=== PATIENT | male | born 1940 | race Caucasian/White ===

== ENCOUNTER → 2018-10-24 | Outpatient (CLI) | payer MEDICARE ==
[2018-10-24 12:58] LABS: HCT 42.7 % (39.0-53.0); HGB 14.3 gm/dL (13.0-17.5); MCH 30.7 pg (25.0-35.0); MCHC 33.4 g/dL (31.0-37.0); MCV 91.9 fL (80.0-100.0); Mean Platelet Volume 8.7; Platelet Count 192 k/uL (150-450); RBC 4.64 m/uL (4.30-5.90); RDW 13.9 % (11.5-15.5); WBC 7.6 k/uL (3.8-10.6)
[2018-10-24 13:02] LABS: Potassium 4.5 mmol/L (3.5-5.1)
== END | disposition home or self-care (01) ==
LOC: LABPAT 11:21
PROVIDERS: ATTEND Internal Medicine Interventional Cardiology
DX: Z01.812 Encounter for preprocedural laboratory examination (principal); R94.39 Abnormal result of other cardiovascular function study; I34.0 Nonrheumatic mitral (valve) insufficiency
CPT/HCPCS: 36415; 80051; 82565; 82947; 84520; 85027

== ENCOUNTER 2018-11-02 10:49 | Day surgery (SDC) | payer MEDICARE ==
[2018-11-02] MEDS ORDERED: ASPIRIN 325 MG TAB ONE (11:01)
[2018-11-02] MEDS ORDERED: SODIUM CHLORIDE 0.9% 1,000 ML IV ONE (11:10)
[2018-11-02] MEDS ORDERED: VERAPAMIL 2.5 MG/ML 2 ML AMP ONE (12:10)
[2018-11-02] MEDS ORDERED: HEPARIN SODIUM 1,000 UN/ML (10ML VL) ONE (12:11)
[2018-11-02] MEDS ORDERED: LIDOCAINE 1% INJ 10MG/ML (20 ML MDV) ONE (12:11)
[2018-11-02] MEDS ORDERED: MIDAZOLAM (PF) 2 MG/2 ML VIAL IVP ONE (12:33)
[2018-11-02] MEDS ORDERED: LIDOCAINE 2% SYG (PF) 100 MG/5 ML MISCELLANE ONE ×3 (12:39→13:05)
[2018-11-02] MEDS: LIDOCAINE 1% INJ 10MG/ML (20 ML MDV) SQ ONE ×2 (12:41→12:52)
[2018-11-02] MEDS ORDERED: HEPARIN SODIUM 1,000 UN/ML (10ML VL) IV ONE (13:08)
[2018-11-02] MEDS ORDERED: IOPAMIDOL-370 125ML BTL INJ ONE (13:28)
[2018-11-02] MEDS ORDERED: IOPAMIDOL-370 50ML BTL INJ ONE (13:28)
[2018-11-02] MEDS ORDERED: RX INFO: IV CONTRAST WAS GIVEN 1 EACH MISC MISCELLANE PRN (13:42)
[2018-11-02] MEDS ORDERED: SODIUM CHLORIDE 0.9% 1,000 ML IV SCH (13:45)
[2018-11-02] MEDS ORDERED: hydrALAZINE HCL 20 MG/ML 1 ML VIAL ONE (14:00)
[2018-11-02 15:59] VITALS: RESP 16; BMI 21.4
[2018-11-02 19:48] VITALS: BP 137/73; PULSE 84; TEMP 98.2
--- NOTE | 2018-11-03 08:11 | CC ---
CARDIAC CATHETERIZATION REPORT DATE OF SERVICE: November 02, 2018 PERFORMING PHYSICIAN: Dagoberto Marie MD, director of sales and marketing. PROCEDURE PERFORMED: 1. Selective right and left coronary angiogram. 2. Left heart catheterization. 3. An aortogram with bilateral iliac angiogram. INDICATION: This is a 78-year-old gentleman with history of aortobifem as well as history of hypertension and dyslipidemia who was experiencing recent the symptoms of shortness of breath with exertion concerning for angina. He underwent myocardial perfusion imaging stress test and that revealed moderate-sized lateral ischemia. Because of that, a heart catheterization was advised. APPROACH: 1. Right common femoral artery. 2. Right radial artery. COMPLICATION: None. LEVEL OF SEDATION: Moderate with sedation length of about 30 minutes. PROCEDURE DESCRIPTION: After obtaining an informed consent, the patient was brought to the cardiac analytical laboratory technician. I attempted cannulating the right radial artery, but I was unable to because the pulse was fairly lateral. The patient is very thin as well. After that, I attempted cannulating the right common femoral artery where I did place a 6-Venezuelan sheath in the right common femoral artery, but I was unable to get the wire to the aorta because I was in his iliac artery which was occluded. The patient is known to have aortobifem surgery. Because of that, I decided to access the right brachial artery. The right radial artery was cannulated using micropuncture technique, the micropuncture wire passed easily, then I placed a 6-Venezuelan sheath in the right radial artery. After that, I did selective right and left coronary angiogram using JR3.5 and JL3.5 catheters. Left heart catheterization was performed using 5-Venezuelan pigtail catheter. After that and by the end, I did aortogram and bilateral iliac angiogram using 6-Venezuelan pigtail catheter. The procedure was completed without any complication. SELECTIVE CORONARY ANGIOGRAM: 1. The right coronary artery is a large caliber vessel and it is a dominant vessel. The RCA is extremely calcified. The mid RCA has a critical lesion appeared to be in the range of 99.9%. Distally appeared to be normal and bifurcates into PDA and PLV branches. 2. The left main is a large caliber vessel with distal disease appeared to be in the range of 60%. The left main bifurcates into left circumflex, ramus intermedius, and left anterior descending artery. 3. The left circumflex is a large caliber vessel and is a nondominant vessel. The left circumflex is occluded in the midportion. 4. The ramus intermedius is a large caliber vessel, which seems to be angiographically normal. 5. The left anterior descending artery is a large caliber vessel. The proximal LAD appeared to have mild disease only and gives rise into the first diagonal branch which is a large caliber vessel bifurcating into 2 subbranches. Appeared to be angiographically normal. The mid and distal LAD appears to be angiographically normal. AORTIC ANGIOGRAM AND BILATERAL ILIAC ANGIOGRAM: That was performed in the AP projection and under power injection. The aortobifem seems to be patent with nice flow from both limbs. CONCLUSION: 1. Calcified right and left coronary systems. 2. Critical disease involving the mid right coronary artery. 3. Severe disease involving the distal left main coronary artery. 4. Patent aortobifem bypass. POSTPROCEDURE MANAGEMENT: 1. Given the above anatomy and the left main involvement, I recommended proceeding with coronary artery bypass grafting. 2. The patient would like to be discharged home and scheduled for that as an outpatient. MMODL / IJN: [id number] /
--- NOTE | 2018-11-03 08:16 | LTR ---
DATE OF SERVICE: November 02, [address] Bermudez: Mr. Saurabh Murphy underwent today a heart catheterization and that revealed severe disease involving the left main coronary artery and critical disease involving the right coronary artery. Given the above anatomy and the left main involvement, I did recommend proceeding with coronary artery bypass grafting to revascularize. I want to thank you for allowing me to participate in his care and please do not hesitate to call with any questions or concerns. Sincerely, MMSAHRAL / IJN: [id number] /
== END 2018-11-02 22:30 | disposition home or self-care (01) ==
LOC: CATHCVL 10:49 → 1SOBS 13:32 → CATHCVL 22:30
PROVIDERS: ATTEND Internal Medicine Interventional Cardiology
DX: I25.110 Atherosclerotic heart disease of native coronary artery with unstable angina pectoris (principal); I25.84 Coronary atherosclerosis due to calcified coronary lesion; I10 Essential (primary) hypertension; I70.201 Unspecified atherosclerosis of native arteries of extremities, right leg; F17.200 Nicotine dependence, unspecified, uncomplicated; Z82.49 Family history of ischemic heart disease and other diseases of the circulatory system; E78.5 Hyperlipidemia, unspecified; I77.89 Other specified disorders of arteries and arterioles; Z79.82 Long term (current) use of aspirin; Z79.899 Other long term (current) drug therapy; Z98.890 Other specified postprocedural states
CPT/HCPCS: 93458; 85347; C1769 ×3; C1894 ×2; J0360; J2001 ×2; J1644; Q9967 ×2; J2250

== ENCOUNTER → 2018-12-14 | Outpatient (CLI) | payer MEDICARE ==
--- NOTE | 2018-12-14 12:04 | CT ---
EXAMINATION TYPE: CT chest wo con DATE OF EXAM: 12/14/2018 COMPARISON: 03/25/2011 HISTORY: Thoracic aortic aneurysm, without rupture CT DLP: 235.[address] of the chest was performed with lung and mediastinal window settings submitted. The la ck of contrast limits evaluation of the vascular, mediastinal and parenchymal structures including th e upper abdomen. LUNGS: The lungs are clear and free of infiltrate. No atelectasis. No pulmonary nodule or mass is de tected. No pleural effusion. No CT evidence of interstitial lung disease. MEDIASTINUM/HUNG: Ascending thoracic aortic aneurysm measuring 4.2 cm AP dimension versus 4.2 cm prev iously. Ascending thoracic aorta measures 3.3 cm AP dimension unchanged from prior study. At the aort ic hiatus the aorta measures 3.4 cm. The heart is not enlarged. No evidence for mediastinal mass. N o lymph nodes greater than 1cm. UPPER ABDOMEN: No significant abnormality is seen. OTHER: No significant other abnormality. IMPRESSION: 1. Stable thoracic aortic aneurysm.
== END | disposition home or self-care (01) ==
LOC: RADCTMAIN 11:26
PROVIDERS: ATTEND Surgery
DX: I71.2 Thoracic aortic aneurysm, without rupture (principal)
CPT/HCPCS: 71250

== ENCOUNTER 2018-12-17 06:11 | Day surgery (SDC) | payer MEDICARE ==
[2018-12-12 11:06] VITALS: BMI 21.9
[2018-12-17] MEDS ORDERED: METOPROLOL SUCCINATE (ER) 25 MG TAB.ER.24H PO STA (06:59)
[2018-12-17] MEDS ORDERED: amLODIPine 5 MG TAB PO STA (06:59)
[2018-12-17] MEDS ORDERED: SODIUM CHLORIDE 0.9% 500 ML 500 ML IV ONE (07:00)
[2018-12-17 07:15] VITALS: TEMP 97.6
[2018-12-17] MEDS ORDERED: fentaNYL (PF) 50 MCG/ML 2 ML AMP ONE (07:37)
[2018-12-17] MEDS ORDERED: BENZOCAINE SPRAY 1 CAN MUCOUS MEM ONE (07:59)
[2018-12-17] MEDS: MIDAZOLAM (PF) 2 MG/2 ML VIAL IV ONE ×2 (08:00→08:05)
[2018-12-17] MEDS ORDERED: fentaNYL (PF) 50 MCG/ML 2 ML AMP IV ONE (08:02)
--- NOTE | 2018-12-17 08:39 | ECHOT ---
TRANSESOPHAGEAL ECHOCARDIOGRAM DATE OF SERVICE: 12/17/2018 PERFORMING PHYSICIAN: Dagoberto Marie MD, Job Checker. PROCEDURE PERFORMED: Transesophageal echocardiogram. INDICATION: Evaluating the severity of mitral regurgitation before the patient is going to undergo coronary artery bypass grafting. COMPLICATION: None. LEVEL OF SEDATION: Moderate with sedation length of 10 minutes. PROCEDURE DESCRIPTION: After obtaining an informed consent, explaining the procedure, benefits, risks, complications and alternatives, the patient was brought to the transesophageal echocardiogram suite. A pulse oximetry and heart rate monitors were attached to the patient prior to the procedure. The patient's throat was sprayed using lidocaine locally. Following that, the patient was turned into left lateral position. A bite guard was placed and the patient was then sedated with the above doses of Versed and fentanyl in divided doses. Following that, the transesophageal echocardiogram probe was advanced through the bite guard into the mid esophagus where 2-D echocardiogram images as well as color Doppler images of various cardiac structures were obtained. We evaluated the interatrial septum using 2-D echocardiogram, color Doppler, and contrast study. The procedure was completed. There were no complications. FINDINGS: The left ventricular dimension and systolic function appeared to be within normal limits. The right ventricular dimension and systolic function appeared to be within normal limits. The left atrium is mildly dilated. The left atrial appendage appeared to be free from any thrombus. The interatrial septum appeared to be intact. The aortic valve is trileaflet valve without stenosis or regurgitation. The mitral valve seems to be thickened with thickening in the anterior as well as posterior mitral leaflet with evidence of moderate mitral regurgitation with central jet. The tricuspid valve and pulmonic valve appear to be within normal limits. The aorta appeared to be free from any atherosclerosis. CONCLUSION: 1. Normal left ventricular dimension and systolic function. 2. Normal right ventricular dimension and systolic function. 3. Mildly dilated right and left atrium. 4. Normal left atrial appendage. 5. Intact interatrial septum. 6. Trileaflet aortic valve without stenosis or regurgitation. 7. Thickened mitral valve leaflets with moderate mitral regurgitation. 8. Normal tricuspid valve and pulmonic valve. 9. Normal descending thoracic aorta without any evidence of atherosclerosis and please refer size thickened anterior and posterior mitral leaflet with moderate MR only. MMODL / IJN: [id number] /
[2018-12-17 15:01] VITALS: RESP 18
[2018-12-17 15:04] VITALS: BP 142/81; PULSE 51
== END 2018-12-17 09:32 | disposition home or self-care (01) ==
LOC: CATHCVL 06:11
PROVIDERS: ATTEND Internal Medicine Interventional Cardiology
DX: I34.0 Nonrheumatic mitral (valve) insufficiency (principal); I25.10 Atherosclerotic heart disease of native coronary artery without angina pectoris; I10 Essential (primary) hypertension; E78.5 Hyperlipidemia, unspecified; F17.210 Nicotine dependence, cigarettes, uncomplicated; Z79.82 Long term (current) use of aspirin; Z79.899 Other long term (current) drug therapy
CPT/HCPCS: 93312; 93320; 93325; J3010; J2250

== ENCOUNTER → 2019-01-08 | Outpatient (CLI) | payer MEDICARE ==
--- NOTE | 2019-01-09 09:57 | P.VSCSTY ---
Greater Saphenous Vein Mapping This is bilateral lower extremity greater saphenous vein mapping. Date of service: 01/08/2019 Vein quality and ultrasound appearance: Varicose areas at the right knee, at the left knee and mid calf on the left. Vein size groin right : 5.1 x 4.2 groin left: 10 x 11 High thigh right: 4.4 x 4.4 high thigh left: 6.6 x 6.6 Mid thigh right: 5.7 x 5.4 mid thigh left: 6.0 x 5.7 Above-knee right: Dilated, 8.1 x 7.7 above-knee left: Dilated, 90.4 x 8.3 Below knee right: 6.1 x 4.9 below-knee left: Dilated 9.0 x 8.1 Mid calf right: 5.8 x 4.1 mid calf left: 5.2 x 4.2 with a dilated branch to 8.8 x 5.8 Ankle right: 8.7 x 6.8 ankle left: 7.7 x 5.7 Impression: Both thighs and the upper right lower leg appear to be the most promising spots for use as conduit. Multiple areas of varicosities which could be problematic. Clinical correlation recommended..
--- NOTE | 2019-01-09 10:06 | P.ARTDOP ---
Arterial Doppler Bilateral radial artery testing: Reason for study: Preop CABG Date of study: 01/08/2019 Findings: Doppler assessment shows no significant right to left or segmental pressure gradient Digital plethysmography with radial artery compression shows no significant pressure changes. Imaging of the right is between 3.1 x 2.8 and 3.8 x 3.3. Left 3.2 x 3.0-3. 2 x 2.9. Please note* The radial artery branches off of the axillary rather than the brachial, as does the ulnar. Therefore measurements are from the axillary level down to the wrist level. Both radial arteries are probably usable. However, please note the branching radial to ulnar which occurs at the axillary level.
== END | disposition home or self-care (01) ==
LOC: CPPFTMAIN 07:58
PROVIDERS: ATTEND Surgery
DX: Z01.818 Encounter for other preprocedural examination (principal); R94.2 Abnormal results of pulmonary function studies
CPT/HCPCS: 93923; 93930; 93970; 94060; 94726; 94729

== ENCOUNTER → 2019-01-17 | Outpatient (CLI) | payer MEDICARE ==
[2019-01-17 10:36] LABS: HCT 42.8 % (39.0-53.0); MCHC 35.1 g/dL (31.0-37.0); MCV 94.2 fL (80.0-100.0); Mean Platelet Volume 8.4; Platelet Count 173 k/uL (150-450); RBC 4.55 m/uL (4.30-5.90); RDW 13.6 % (11.5-15.5)
--- NOTE | 2019-01-17 10:42 | XR ---
EXAMINATION TYPE: XR chest 2V DATE OF EXAM: 01/17/2019 COMPARISON: 03/31/2015 TECHNIQUE: PA and lateral views submitted. HISTORY: Presurgical testing FINDINGS: The lungs are clear and there is no pneumothorax, pleural effusion, or focal pneumonia. Linear mclaughlin ge right upper lobe suggestive of atelectasis or scar. Arthropathy of the shoulders. There appears to be aneurysmal dilation of the thoracic aorta which has been reported by previous CT scan. Hyperinfla tion suggests COPD. Surgical clips in the mediastinum noted. Hypertrophic and degenerative change of the spine. Correlate for pulmonary arterial hypertension. IMPRESSION: 1. No acute process. COPD. Correlate for pulmonary arterial hypertension.
[2019-01-17 10:45] LABS: INR 0.9 (<1.2); Prothrombin Time 9.9 sec (9.0-12.0)
[2019-01-17 11:09] LABS: ALT 26 U/L (21-72); AST 20 U/L (17-59); African American GFR (CKD) 78 (>60 ml/min/1.73 sqM); Albumin 4.1 g/dL (3.5-5.0); Alkaline Phosphatase 86 U/L (38-126); Anion Gap 8 mmol/L; Blood Urea Nitrogen 19 mg/dL (9-20); Calcium 9.4 mg/dL (8.4-10.2); Carbon Dioxide 30 mmol/L (22-30); Chloride 104 mmol/L (98-107); Cholesterol 124 mg/dL (<200); Glucose 95 mg/dL (74-99); HDL Cholesterol 36 mg/dL (40-60); LDL Cholesterol,Calculated 74 mg/dL (0-99); Potassium 4.3 mmol/L (3.5-5.1); Sodium 142 mmol/L (137-145); Total Protein 6.8 g/dL (6.3-8.2); Triglycerides 68 mg/dL (<150)
[2019-01-17 12:53] LABS: T4, Free (Free Thyroxine) 1.92 ng/dL (0.78-2.19)
[2019-01-17 14:13] LABS: Appearance,Urine Turbid (Clear); Bacteria,Urine Many /hpf; Bilirubin,Urine Negative (Negative); Blood,Urine Negative (Negative); Calcium Oxalate Crystals,Urine Moderate /hpf; Color,Urine Dark Brown; Glucose,Urine (UA) Negative (Negative); Ketones,Urine Negative (Negative); Leukocyte Esterase,Urine Moderate (Negative); Mucus,Urine Many /hpf; Nitrite,Urine Positive (Negative); PH, Urine 5.5 (5.0-8.0); Protein,Urine 1+ (Negative); RBC,Urine 16 /hpf (0-5); WBC,Urine 33 /hpf (0-5)
[2019-01-17 20:35] LABS: Hemoglobin A1C 5.2 % (4.0-6.0)
== END | disposition home or self-care (01) ==
LOC: LABPAT 07:46
PROVIDERS: ATTEND Surgery
DX: Z01.810 Encounter for preprocedural cardiovascular examination (principal); Z01.818 Encounter for other preprocedural examination; Z01.812 Encounter for preprocedural laboratory examination; R03.0 Elevated blood-pressure reading, without diagnosis of hypertension; I25.10 Atherosclerotic heart disease of native coronary artery without angina pectoris; N18.9 Chronic kidney disease, unspecified; I34.2 Nonrheumatic mitral (valve) stenosis; Z95.2 Presence of prosthetic heart valve; Z79.899 Other long term (current) drug therapy; Z79.01 Long term (current) use of anticoagulants
CPT/HCPCS: 36415; 71046; 80053; 80061; 80074; 81001; 83036; 83735; 84439; 84443; 85027; 85610; 85730; 86850; 86900; 86901; 86920; 87070; 87077; 87086; 87186; 93005

== ENCOUNTER 2019-01-25 05:40 | Inpatient (IN) | payer MEDICARE ==
[2019-01-18 16:20] VITALS: BMI 21.7
--- NOTE | 2019-01-22 07:46 | P.PN ---
Progress Note - Text Progress Note Date: 01/17/19 5 meter walk test was completed 01/17/19: #1 5.34 sec #2 4.72 sec #3 4.43 sec Also, STS risk score was calculated and discussed with the patient and daughter. Urine culture positive for ecoli, no fever, no symptoms, WBC count normal. Patient given course of oral Bactrim.
[~2019-01-25 05:40] MED LIST: ALBUMIN HUMAN 25% 50 ML IV ONE; ALBUMIN HUMAN 5% 500 ML IVPB ONE; ASPIRIN 325 MG TAB PO ONE; ATORVASTATIN 10 MG TAB PO ONE; CALCIUM CHLORIDE 100 MG/ML 10 ML SYRINGE IV ONE; CHLORHEXIDINE GLUCONATE 15 ML CUP MUCOUS MEM ONE; CLEVIDIPINE BUTYRATE 25 MG in EMPTY BAG 1 BAG IV ONE; DEXTROSE 5% IN WATER 1,000 ML with POTASSIUM CHLORIDE 110 MEQ, MAGNESIUM SULFATE 16 MEQ... IV ONE; DEXTROSE 5% IN WATER 1,000 ML with POTASSIUM CHLORIDE 25 MEQ, SODIUM CHLORIDE 2.5MEQ/ML... IRRIGATION ONE; DILTIAZEM 125 MG in SODIUM CHLORIDE 0.9% 100 ML IV ONE; HEPARIN SODIUM 1,000 UN/ML (10ML VL) IV ONE; HEPARIN SODIUM,PORCINE 5,000 UNIT in SODIUM CHLORIDE 0.9% 500 ML 500 ML IV ONE; INSULIN REGULAR 100 UNIT in SODIUM CHLORIDE 0.9% 100 ML IV ONE; LACTATED RINGERS 1,000 ML IV ONE; MAGNESIUM SULFATE MG 500 MG/ML IV ONE; MANNITOL 25% 12.5 GM/50 ML VIAL IV ONE; METOPROLOL TARTRATE 12.5 MG TAB PO ONE; NITROGLYCERIN SL TABS 0.4 MG TAB SUBLINGUAL ONE; NITROGLYCERIN-D5W PMX 25 MG/250 ML BTL IV ONE; NITROGLYCERIN-D5W PMX 50 MG in DEXTROSE/WATER 1 250ML.BAG IV ONE; NOREPINEPHRINE 4 MG in SODIUM CHLORIDE 0.9% 250 ML IV ONE; PAPAVERINE 360 MG in SODIUM CHLORIDE 0.9% 90 ML IV ONE; PHENYLEPHRINE 10 MG/ML VIAL IV ONE; PHENYLEPHRINE 40 MG in SODIUM CHLORIDE 0.9% 250 ML IV ONE; PROPOFOL 1,000 MG/100 ML VIAL IV ONE; PROTAMINE SULFATE 10 MG/ML 25 ML VIAL IV ONE; PROTAMINE SULFATE 250 MG in EMPTY BAG 1 BAG IV ONE; SODIUM BICARB 8.4% 50 ML SYR (1 MEQ/ML) IV ONE; SODIUM CHLORIDE 0.9% 1,000 ML IV ONE; TRANEXAMIC ACID 2,000 MG in SODIUM CHLORIDE 0.9% 80 ML IV ONE; VANCOMYCIN 1,000 MG VIAL MISCELLANE ONE; ceFAZolin 2,000 MG in SODIUM CHLORIDE 0.9% 30 ML IVPB ONE
[2019-01-25] MEDS ORDERED: LACTATED RINGERS 1,000 ML IV SCH (05:48)
[2019-01-25] MEDS ORDERED: MIDAZOLAM 2 MG/2 ML VIAL IV PRN (05:48)
[2019-01-25] MEDS ORDERED: LIDOCAINE 1% 20 ML VIAL (10MG/ML) FOR IV START INTRADERMA PRN (05:48)
[2019-01-25] MEDS ORDERED: fentaNYL (PF) 50 MCG/ML 50 ML VIAL ONE (07:39)
[2019-01-25] MEDS ORDERED: ELECTROLYTE-R (PH 7.4) 1,000 ML IV.SOLN IV ONE (07:39)
[2019-01-25] MEDS ORDERED: ePHEDrine SULFATE/0.9% NACL/PF 50 MG/5 ML SYRINGE IV ONE (07:39)
[2019-01-25] MEDS ORDERED: SODIUM CHLORIDE 0.9% IRRIG 1,000 ML BTL IRRIGATION ONE (07:39)
[2019-01-25] MEDS ORDERED: PROTAMINE SULFATE 10 MG/ML 25 ML VIAL IV ONE (07:39)
[2019-01-25] MEDS ORDERED: VECURONIUM 10 MG VIAL IV ONE (07:39)
[2019-01-25] MEDS ORDERED: ceFAZolin 1,000 MG VIAL ONE (07:39)
[2019-01-25] MEDS ORDERED: LIDOCAINE 2% SYG (PF) 100 MG/5 ML ONE (07:39)
[2019-01-25] MEDS ORDERED: MAGNESIUM SULFATE 4 MEQ/ML 10ML VIAL ONE (07:39)
[2019-01-25] MEDS ORDERED: SODIUM CHLORIDE 0.9% 250 ML BAG ONE (07:39)
[2019-01-25] MEDS ORDERED: CALCIUM CHLORIDE 100 MG/ML 10 ML SYRINGE ONE (07:39)
[2019-01-25] MEDS ORDERED: TRANEXAMIC ACID 1,000 MG/10 ML VIAL ONE (07:39)
[2019-01-25] MEDS ORDERED: INSULIN REGULAR 100 UNIT/ML VIAL ONE (07:39)
[2019-01-25] MEDS ORDERED: MIDAZOLAM 2 MG/2 ML VIAL ONE (07:39)
[2019-01-25] MEDS ORDERED: HEPARIN SODIUM,PORCINE 10,000 UNIT/ML 1 ML VIAL ONE (07:39)
[2019-01-25] MEDS ORDERED: fentaNYL (PF) 50 MCG/ML 2 ML AMP ONE (07:39)
[2019-01-25] MEDS ORDERED: PROPOFOL 10 MG/ML 20 ML VIAL IV ONE (07:39)
[2019-01-25 08:38] LABS: ABG Base Excess -0.5 mmol/L; ABG Glucose Whole Blood 119 mg/dL (75-99); ABG HCO3 24 mmol/L (21-25); ABG Hematocrit 41 % (34.0-46.0); ABG Ionized Calcium 4.7 mg/dL (4.5-5.3); ABG Lactic Acid Whole Blood 0.7 mmol/L (0.5-1.6); ABG PCO2 40 mmHg (35-45); ABG Potassium Whole Blood 3.9 mmol/L (3.4-4.5); ABG Sodium Whole Blood 137 mmol/L (135-146); ABG TCO2 26 mmol/L (19-24)
[2019-01-25 10:03] LABS: ABG Base Excess -4.7 mmol/L; ABG Glucose Whole Blood 137 mg/dL (75-99); ABG HCO3 25 mmol/L (21-25); ABG Hematocrit 37 % (34.0-46.0); ABG Ionized Calcium 4.9 mg/dL (4.5-5.3); ABG Lactic Acid Whole Blood 0.6 mmol/L (0.5-1.6); ABG Oxygen Saturation 99.6 % (94-97); ABG PCO2 67 mmHg (35-45); ABG PO2 257 mmHg (83-108); ABG Sodium Whole Blood 138 mmol/L (135-146); ABG TCO2 27 mmol/L (19-24)
[2019-01-25 10:50] LABS: ABG Base Excess -3.6 mmol/L; ABG Glucose Whole Blood 151 mg/dL (75-99); ABG HCO3 23 mmol/L (21-25); ABG Hematocrit 37 % (34.0-46.0); ABG Ionized Calcium 4.7 mg/dL (4.5-5.3); ABG Lactic Acid Whole Blood 0.7 mmol/L (0.5-1.6); ABG Oxygen Saturation 99.7 % (94-97); ABG PCO2 47 mmHg (35-45); ABG PO2 208 mmHg (83-108); ABG Potassium Whole Blood 4.1 mmol/L (3.4-4.5); ABG Sodium Whole Blood 137 mmol/L (135-146); ABG TCO2 24 mmol/L (19-24)
[2019-01-25] MEDS: ceFAZolin 1,000 MG in SODIUM CHLORIDE 0.9% IRRIGATIO 1,000 ML IRRIGATION ONE ×2 (11:11→18:27)
[2019-01-25 11:14] LABS: ABG Base Excess -5.3 mmol/L; ABG Glucose Whole Blood 142 mg/dL (75-99); ABG HCO3 21 mmol/L (21-25); ABG Hematocrit 26 % (34.0-46.0); ABG Lactic Acid Whole Blood 1.3 mmol/L (0.5-1.6); ABG PCO2 42 mmHg (35-45); ABG PO2 403 mmHg (83-108); ABG Potassium Whole Blood 4.2 mmol/L (3.4-4.5); ABG Sodium Whole Blood 132 mmol/L (135-146); ABG TCO2 22 mmol/L (19-24)
[2019-01-25 11:44] LABS: ABG Base Excess -0.6 mmol/L; ABG Glucose Whole Blood 258 mg/dL (75-99); ABG HCO3 25 mmol/L (21-25); ABG Hematocrit 25 % (34.0-46.0); ABG Lactic Acid Whole Blood 1.1 mmol/L (0.5-1.6); ABG PCO2 43 mmHg (35-45); ABG PH 7.37 (7.35-7.45); ABG PO2 333 mmHg (83-108); ABG Potassium Whole Blood 5.6 mmol/L (3.4-4.5); ABG Sodium Whole Blood 132 mmol/L (135-146); ABG TCO2 26 mmol/L (19-24)
[2019-01-25 12:17] LABS: ABG Base Excess -0.9 mmol/L; ABG Glucose Whole Blood 250 mg/dL (75-99); ABG HCO3 24 mmol/L (21-25); ABG Hematocrit 26 % (34.0-46.0); ABG Ionized Calcium 4.1 mg/dL (4.5-5.3); ABG Lactic Acid Whole Blood 1.2 mmol/L (0.5-1.6); ABG PCO2 43 mmHg (35-45); ABG PH 7.37 (7.35-7.45); ABG PO2 280 mmHg (83-108); ABG Potassium Whole Blood 5.3 mmol/L (3.4-4.5); ABG Sodium Whole Blood 133 mmol/L (135-146); ABG TCO2 26 mmol/L (19-24)
[2019-01-25] MEDS ORDERED: DEXTROSE 5% IN WATER 1,000 ML with POTASSIUM CHLORIDE 110 MEQ, MAGNESIUM SULFATE 16 MEQ... IV ONE ×5 (14:00)
[2019-01-25] MEDS ORDERED: ONDANSETRON 4 MG/2 ML VIAL IVP PRN (15:03)
[2019-01-25] MEDS ORDERED: Phosphorus Replacement Protoco 1 EACH MISC MISCELLANE PRN (15:03)
[2019-01-25] MEDS ORDERED: BENZOCAINE/MENTHOL LOZENG 1 EACH LOZENGE MUCOUS MEM PRN (15:03)
[2019-01-25] MEDS ORDERED: Potassium Replacement Protocol 1 EACH MISC MISCELLANE PRN (15:03)
[2019-01-25] MEDS ORDERED: AMIODARONE 360 MG in DEXTROSE 5% IN WATER 200 ML IV PRN ×2 (15:03)
[2019-01-25] MEDS ORDERED: CALCIUM GLUCONATE 2 GM in SODIUM CHLORIDE 0.9% 100 ML IVPB PRN (15:03)
[2019-01-25] MEDS ORDERED: Magnesium Replacement Protocol 1 EACH MISC MISCELLANE PRN (15:03)
[2019-01-25] MEDS ORDERED: IPRATROPIUM-ALBUTEROL 3 ML NEB INHALATION SCH (16:00)
[2019-01-25 16:52] LABS: ABG PO2 >420 mmHg (83-108)
[2019-01-25 16:53] LABS: ABG PH 7.18 (7.35-7.45)
[2019-01-25] MEDS ORDERED: DEXMEDETOMIDINE/0.9% NACL(PMX) 400 MCG in EMPTY BAG 1 BAG IV SCH (17:30)
[2019-01-25] MEDS ORDERED: NITROGLYCERIN-D5W PMX 50 MG in DEXTROSE/WATER 1 250ML.BAG IV SCH (17:30)
[2019-01-25] MEDS ORDERED: DILTIAZEM 125 MG in SODIUM CHLORIDE 0.9% 100 ML IV SCH (17:30)
[2019-01-25 17:33] LABS: Ionized Calcium 4.8 mg/dL (4.5-5.3)
[2019-01-25 17:34] LABS: ABG Base Excess 0.4 mmol/L; ABG HCO3 26 mmol/L (21-25); ABG Oxygen Saturation 99.8 % (94-97); ABG PCO2 49 mmHg (35-45); ABG PH 7.34 (7.35-7.45); ABG PO2 >400 mmHg (83-108); ABG TCO2 28 mmol/L (19-24); Allen Test Performed? Yes
[2019-01-25 17:40] LABS: Basophils % (A) 1 %; Eosinophils # (A) 0.1 k/uL (0-0.7); Eosinophils % (A) 2 %; HCT 23.6 % (39.0-53.0); Lymphocytes # (A) 0.3 k/uL (1.0-4.8); Lymphocytes % (A) 5 %; MCH 32.4 pg (25.0-35.0); MCHC 35.2 g/dL (31.0-37.0); Mean Platelet Volume 9.6; Monocytes # (A) 0.6 k/uL (0-1.0); Monocytes % (A) 10 %; Neutrophils # (A) 4.7 k/uL (1.3-7.7); Neutrophils % (A) 81 %; RBC 2.56 m/uL (4.30-5.90); RDW 14.6 % (11.5-15.5); WBC 5.8 k/uL (3.8-10.6)
[2019-01-25 17:41] LABS: HGB 8.3 gm/dL (13.0-17.5)
[2019-01-25 17:42] LABS: Platelet Count 46 k/uL (150-450)
--- NOTE | 2019-01-25 17:43 | XR ---
EXAMINATION TYPE: XR chest 1V portable DATE OF EXAM: 01/25/2019 COMPARISON: 01/17/2019 HISTORY: Cardiac surgery TECHNIQUE: Single frontal view of the chest is obtained. FINDINGS: Endotracheal tube is 3.5 cm from the yannick. There is a drain over the heart. There is yari ogastric tube. There is right jugular catheter with the tip in the right pulmonary artery. No pneumot horax. No heart failure. There is a left-sided chest tube. There is minimal infiltrate and atelectasi s in lower lung de dios. IMPRESSION: Postsurgical changes. Minimal infiltrates and atelectasis in the lower lung de dios is ne w compared to preoperative exam. No heart failure. No pulmonary consolidation.
[2019-01-25 17:49] LABS: Glucose,Whole Blood 116 mg/dL (75-99)
[2019-01-25 17:51] LABS: INR 1.5 (<1.2); Partial Thromboplastin Time 44.7 sec (22.0-30.0); Prothrombin Time 15.4 sec (9.0-12.0)
[2019-01-25 17:53] LABS: Albumin 2.6 g/dL (3.5-5.0); Calcium 7.9 mg/dL (8.4-10.2); Magnesium 2.5 mg/dL (1.6-2.3); Potassium 4.2 mmol/L (3.5-5.1); Total Bilirubin 1.6 mg/dL (0.2-1.3); Total Protein 3.8 g/dL (6.3-8.2)
[2019-01-25 18:23] LABS: Glucose,Whole Blood 106 mg/dL (75-99)
[2019-01-25] MEDS: LACTATED RINGERS 1,000 ML IV SCH (18:29)
[2019-01-25] MEDS ORDERED: DESMOPRESSIN ACETATE 21 MCG in SODIUM CHLORIDE 0.9% 50 ML IVPB ONE (18:30)
[2019-01-25 18:49] LABS: Anisocytosis (M) Present; Hypochromasia (M) Present; Poikilocytosis (M) Present
[2019-01-25 18:50] LABS: Crenated RBC Present
--- NOTE | 2019-01-25 19:15 | P.CNPUL ---
History of Present Illness Consult date: 01/25/19 Requesting physician: Deep Franco Reason for consult: other Chief complaint: CAD, status post three-vessel bypass surgery History of present illness: This is a 78-year-old white male patient with past medical history significant for hypertension, hypercholesterolemia, history of sleep apnea, abdominal aortic aneurysm with surgical repair in 2017, history of right-sided lung cancer status post resection in 2017 followed by chemotherapy and radiation therapy, past history of tobacco use currently in remission, moderate alcohol use, was diagnosed with multivessel coronary artery disease and moderate mitral regurgitation and was referred to cardiothoracic surgery for intervention. He had a heart catheterization on 11/02/2018 which revealed a 60% lesion in the left main artery, occlusion in the midportion of the left circumflex artery, mild disease in the LAD, there was a 99% critical lesion in the mid right coronary artery. Echocardiogram revealed ejection fraction of 55%, there was moderate mitral regurg with mild mitral annular calcification. On 01/25/2019 patient had three-vessel bypass with VINCENT to LAD, radial artery graft to the RCA, and saphenous graft to the OM, Intra-operatively patient apparently had a perforated pulmonary artery and the coronary sinus requiring repair, overall patient did well, he received Cell Saver, no blood products Intra-Op, did receive 4 to have liters of crystalloids, 1.5 L of albumin. We seen the patient in the ICU in the immediate postoperative period, he is intubated on mechanical ventilator on IMV mode with a rate of 10, tidal volume of 550, FiO2 100% and PEEP of 5, as was switched over to assist control mode of ventilation with a rate of 12, same tidal volume, same FiO2, and PEEP was up to 10. Postop blood gases are pending. Patient had put out 700 mL of sanguinous output from the mediastinal chest tube, left pleural chest tube is relatively dry. He is receiving 5 units of platelets, 2 units of FFP, 2 of albumin, he was given a dose of DDAVP, and 10 units of cryoprecipitate. Postop blood work showed a white blood cell count of 5.8, hemoglobin is 8.3, INR is 1.5, sodium is 139, potassium is 4.2, chloride is 108, CO2 is 26, BUN is 23, creatinine 0.9. Maintenance IV fluids of lactated Ringer's at a rate of 50, no pressors. No sedation, PA pressures 27/14, with a CVP of 4, cardiac output and cardiac index of 4.1 and 2.1 respectively. Review of Systems All systems: negative Constitutional: Denies chills, Denies fever Eyes: denies blurred vision, denies pain Ears, nose, mouth and throat: Denies headache, Denies sore throat Cardiovascular: Denies chest pain, Denies shortness of breath Respiratory: Denies cough Gastrointestinal: Denies abdominal pain, Denies diarrhea, Denies nausea, Denies vomiting Musculoskeletal: Denies myalgias Integumentary: Denies pruritus, Denies rash Neurological: Denies numbness, Denies weakness Psychiatric: Denies anxiety, Denies depression Endocrine: Denies fatigue, Denies weight change Past Medical History Past Medical History: Cancer, Hyperlipidemia, Hypertension, Memory Impairment Additional Past Medical History / Comment(s): hx. aneurysm, lung cancer 15 yrs. ago-chemo & surgery History of Any Multi-Drug Resistant Organisms: None Reported Past Surgical History: Heart Catheterization, Orthopedic Surgery Additional Past Surgical History / Comment(s): aneurysm repair about 10 yrs. ago, right lung resection 15 yrs. ago, arthroscopy knee, finger surg. Past Anesthesia/Blood Transfusion Reactions: No Reported Reaction Smoking Status: Former smoker - Past Family History Mother Family Medical History: No Reported History Medications and Allergies Home Medications Medication Instructions Recorded Confirmed Type Aspirin [Adult Low Dose Aspirin EC] 81 mg PO DAILY@139911/01/18 01/25/19 History Atorvastatin [Lipitor] 40 mg PO DAILY@139911/01/18 01/25/19 History amLODIPine [Norvasc] 5 mg PO DAILY@139911/01/18 01/25/19 History Metoprolol Succinate [Toprol XL] 25 mg PO DAILY@139912/12/18 01/25/19 History Allergies Allergy/AdvReac Type Severity Reaction Status Date / Time No Known Allergies Allergy Verified 01/25/19 14:07 Physical Exam Vitals: Vital Signs Temp Pulse Pulse Resp BP BP BP 01/25/19 18:32 35.8 F L 80 20 93/57 01/25/19 18:30 35.8 F L 80 20 101/60 01/25/19 18:20 80 20 01/25/19 18:19 35.8 F L 80 20 108/66 01/25/19 18:14 96.4 F L 80 108/65 01/25/19 18:10 80 20 01/25/19 18:06 35.7 F L 80 20 103/64 01/25/19 18:00 80 20 92/62 01/25/19 17:50 80 20 01/25/19 17:43 36.1 F L 80 20 68/44 01/25/19 17:40 80 16 01/25/19 17:30 77 4 L 01/25/19 17:20 72 27 H 01/25/19 06:01 96.2 F L 79 16 127/79 158/68 Pulse Ox 01/25/19 18:32 01/25/19 18:30 01/25/19 18:20 01/25/19 18:19 01/25/19 18:14 01/25/19 18:10 99 01/25/19 18:06 01/25/19 18:00 85 L 01/25/19 17:50 01/25/19 17:43 94 L 01/25/19 17:40 01/25/19 17:30 01/25/19 17:20 01/25/19 06:01 92 L Intake and Output 01/25/19 01/25/19 01/25/19 06:59 14:59 22:59 Intake Total 100 32 904 Output Total 2450 275 Balance 100 -2418 629 Intake: IV 100 32 69 .9NS Pressure Bag 9 Lactated Ringers 1,000 ml 50 @ 50 mls/hr IV .Q20H [facility] Rx#:[id number] cardiac output 10 Blood Product 835 Ffp 24 Cpd Unit 314 [id number] Ffp 24 Cpda Unit 214 [id number] Platelet Irr Pheresis 307 Acda1 Unit [id number] Output: Chest Tube Drainage 225 Mediastinal Chest Tube 200 Right Pleural 25 Urine 450 50 Estimated Blood Loss 2000 ABP, PAP, CO, CI - Last 8 Hours Arterial Blood Pressure 107/65 Arterial Blood Pressure 106/64 Arterial Blood Pressure 107/65 Arterial Blood Pressure 74/47 Arterial Blood Pressure 91/60 Arterial Blood Pressure 102/63 Pulmonary Artery Pressure 27/15 Pulmonary Artery Pressure 27/14 Pulmonary Artery Pressure 28/16 Pulmonary Artery Pressure 19/10 Pulmonary Artery Pressure 26/15 Pulmonary Artery Pressure 26/15 Pulmonary Artery Pressure 27/16 Cardiac Output 4 Cardiac Output 4 Cardiac Output 4.1 Cardiac Output 4.1 Cardiac Output 4.1 Cardiac Output 4.1 Cardiac Index 2.1 Cardiac Index 2.1 Cardiac Index 2.1 Cardiac Index 2.1 Cardiac Index 2.1 Cardiac Index 2.1 GENERAL EXAM: 78-year-old white male patient intubated, sedated on mechanical ventilator in no apparent distress. HEAD: Normocephalic/atraumatic. EYES: Normal reaction of pupils, equal size. Conjunctiva pink, sclera white. NOSE: Clear with pink turbinates. THROAT: No erythema or exudates. NECK: No masses, no JVD, no thyroid enlargement, no adenopathy. CHEST: No chest wall deformity. Symmetrical expansion. Midsternal incision is clean dry and intact, 2 mediastinal one right pleural chest tube. Atrial ventricular epicardial wires connected to the external pacemaker and patient is being paced at a AAI mode at a rate of 80 BPM LUNGS: Equal air entry with no crackles, wheeze, rhonchi or dullness. CVS: Regular rate and rhythm, normal S1 and S2, no gallops, no murmurs, no rubs ABDOMEN: Soft, nontender. No hepatosplenomegaly, normal bowel sounds, no guarding or rigidity. EXTREMITIES: No clubbing, no edema, no cyanosis, 2+ pulses and upper and lower extremities. Lower extremities are kelton wrapped and SCDs are present MUSCULOSKELETAL: Muscle strength and tone normal. SPINE: No scoliosis or deformity SKIN: No rashes CENTRAL NERVOUS SYSTEM: Sedated, intubated. No focal deficits, tone is normal in all 4 extremities. Results - Laboratory Findings CBC and BMP: 01/25/19 17:21 01/25/19 17:21 ABG ABG pH 7.37 (7.35-7.45) 01/25/19 12:57 ABG pCO2 43 mmHg (35-45) 01/25/19 12:57 ABG pO2 280 mmHg (83-108) H 01/25/19 12:57 ABG O2 Saturation 100.0 % (94-97) H 01/25/19 12:57 PT/INR, D-dimer PT 15.4 sec (9.0-12.0) H 01/25/19 17:21 INR 1.5 (<1.2) H 01/25/19 17:21 Abnormal lab findings: Abnormal Labs 01/17/19 01/25/19 01/25/19 09:00 08:40 10:05 RBC Hgb Hct PT INR APTT Fibrinogen ABG pH 7.18 L* ABG pCO2 67 H ABG pO2 >420 H 257 H ABG Total CO2 26 H 27 H ABG O2 Saturation 100.0 H 99.6 H ABG Hematocrit ABG Sodium ABG Potassium ABG Ionized Calcium ABG Glucose 119 H 137 H Hemoglobin 12.2 L Chloride BUN Glucose POC Glucose (mg/dL) Calcium Magnesium Total Bilirubin Alkaline Phosphatase Total Protein Albumin Arterial Blood Potassium Arterial Blood Glucose 119 H 137 H Crossmatch See Detail 01/25/19 01/25/19 01/25/19 10:52 11:16 11:47 RBC Hgb Hct PT INR APTT Fibrinogen ABG pH 7.30 L 7.30 L ABG pCO2 47 H ABG pO2 208 H 403 H 333 H ABG Total CO2 26 H ABG O2 Saturation 99.7 H 100.0 H 100.0 H ABG Hematocrit 26 L 25 L ABG Sodium 132 L 132 L ABG Potassium 5.6 H ABG Ionized Calcium 4.0 L 4.0 L ABG Glucose 151 H 142 H 258 H Hemoglobin 12.1 L 8.3 L 8.0 L Chloride BUN Glucose POC Glucose (mg/dL) Calcium Magnesium Total Bilirubin Alkaline Phosphatase Total Protein Albumin Arterial Blood Potassium 5.6 H Arterial Blood Glucose 151 H 142 H 258 H Crossmatch 01/25/19 01/25/19 01/25/19 12:57 17:19 17:21 RBC 2.56 L Hgb 8.3 L D Hct 23.6 L PT INR APTT Fibrinogen ABG pH ABG pCO2 ABG pO2 280 H ABG Total CO2 26 H ABG O2 Saturation 100.0 H ABG Hematocrit 26 L ABG Sodium 133 L ABG Potassium 5.3 H ABG Ionized Calcium 4.1 L ABG Glucose 250 H Hemoglobin 8.5 L Chloride BUN Glucose POC Glucose (mg/dL) 116 H Calcium Magnesium Total Bilirubin Alkaline Phosphatase Total Protein Albumin Arterial Blood Potassium 5.3 H Arterial Blood Glucose 250 H Crossmatch 01/25/19 01/25/19 01/25/19 17:21 17:21 17:21 RBC Hgb Hct PT 15.4 H INR 1.5 H APTT 44.7 H Fibrinogen 110 L ABG pH ABG pCO2 ABG pO2 ABG Total CO2 ABG O2 Saturation ABG Hematocrit ABG Sodium ABG Potassium ABG Ionized Calcium ABG Glucose Hemoglobin Chloride 108 H BUN 23 H Glucose 108 H POC Glucose (mg/dL) Calcium 7.9 L Magnesium 2.5 H Total Bilirubin 1.6 H Alkaline Phosphatase 24 L Total Protein 3.8 L Albumin 2.6 L Arterial Blood Potassium Arterial Blood Glucose Crossmatch 01/25/19 18:21 RBC Hgb Hct PT INR APTT Fibrinogen ABG pH ABG pCO2 ABG pO2 ABG Total CO2 ABG O2 Saturation ABG Hematocrit ABG Sodium ABG Potassium ABG Ionized Calcium ABG Glucose Hemoglobin Chloride BUN Glucose POC Glucose (mg/dL) 106 H Calcium Magnesium Total Bilirubin Alkaline Phosphatase Total Protein Albumin Arterial Blood Potassium Arterial Blood Glucose Crossmatch - Diagnostic Findings Chest x-ray: report reviewed, image reviewed Assessment and Plan Plan: Assessment: #1. Multivessel coronary artery disease, status post three-vessel coronary artery bypass grafting, with VINCENT to LAD, radial arterial graft to the RCA, and saphenous venous graft to the OM, postoperative day 0 #2. Routine ventilator management #3. Acute blood loss anemia, normal outcome of bypass grafting surgery. Patient did have a perforated artery artery, and perforated coronary sinus, unexpected outcomes of bypass grafting surgery #4. Hypertension #5. Hypercholesterolemia #6. History of abdominal aortic aneurysm with surgical repair in 2017 #7. History of lung cancer involving the right lung, with surgical resection followed by chemotherapy and radiation therapy #8. History of cholecystectomy #9. Former smoker Plan: Patient has been switched over to assist control mode of ventilation, awaiting postoperative blood gas. Patient has received blood products, for mild bleeding from the mediastinal chest tube. Hemodynamically stable. Postop chest x-ray has been reviewed, indwelling lines and ET tube in appropriate positions. Continue nebulized bronchodilators, we'll proceed with spontaneous breathing trials and extubation after the patient wakes up and follows command. Incentive spirometry to the bedside, daily chest x-rays. Close hemodynamic monitoring. Will continue to follow along with CT surgery. I performed a history & physical examination of the patient and discussed their management with my nurse practitioner, Alka Galvan. I reviewed the nurse practitioner's note and agree with the documented findings and plan of care. Lung sounds are positive for clear breath sounds. The findings and the impression was discussed with the patient. I attest to the documentation by the nurse practitioner. Time with Patient: Greater than 30
[2019-01-25] MEDS: ACETAMINOPHEN IV (For NPO) 1,000 MG in EMPTY BAG 1 BAG IVPB SCH (19:16)
[2019-01-25] MEDS ORDERED: MAGNESIUM SULFATE-D5W PMX 1 GM in DEXTROSE/WATER 1 100ML.BAG IVPB SCH (19:30)
[2019-01-25] MEDS: IPRATROPIUM-ALBUTEROL 3 ML NEB INHALATION SCH ×2 (19:38→20:26)
[2019-01-25 19:57] LABS: Glucose,Whole Blood 189 mg/dL (75-99)
[2019-01-25 20:05] LABS: Basophils % (A) 0 %; Eosinophils % (A) 1 %; Lymphocytes # (A) 0.1 k/uL (1.0-4.8); Lymphocytes % (A) 5 %; MCH 32.1 pg (25.0-35.0); MCHC 35.2 g/dL (31.0-37.0); MCV 91.1 fL (80.0-100.0); Mean Platelet Volume 10.7; Monocytes # (A) 0.3 k/uL (0-1.0); Monocytes % (A) 10 %; Neutrophils # (A) 2.6 k/uL (1.3-7.7); Neutrophils % (A) 82 %; RBC 1.61 m/uL (4.30-5.90); RDW 14.2 % (11.5-15.5); WBC 3.1 k/uL (3.8-10.6)
[2019-01-25 20:12] LABS: HCT 14.7 % (39.0-53.0); HGB 5.2 gm/dL (13.0-17.5)
[2019-01-25 20:13] LABS: Platelet Count 45 k/uL (150-450)
[2019-01-25 20:15] LABS: INR 1.3 (<1.2); Partial Thromboplastin Time 35.9 sec (22.0-30.0)
[2019-01-25] MEDS: ALBUMIN HUMAN 5% 250 ML in EMPTY BAG 1 BAG IVPB PRN ×2 (20:23→23:53)
[2019-01-25] MEDS ORDERED: MUPIROCIN 2% OINT 22 GM TUBE NASAL ONE (20:45)
[2019-01-25 21:03] LABS: Glucose,Whole Blood 176 mg/dL (75-99)
[2019-01-25] MEDS: INSULIN REGULAR 100 UNIT in SODIUM CHLORIDE 0.9% 100 ML IV SCH (21:05)
[2019-01-25] MEDS: NOREPINEPHRINE 4 MG in SODIUM CHLORIDE 0.9% 250 ML IV SCH (21:30)
[2019-01-25 21:39] LABS: ABG Base Excess 1.3 mmol/L; ABG HCO3 26 mmol/L (21-25); ABG Oxygen Saturation 99.4 % (94-97); ABG PCO2 38 mmHg (35-45); ABG PH 7.44 (7.35-7.45); ABG PO2 169 mmHg (83-108); ABG TCO2 27 mmol/L (19-24); Allen Test Performed? Yes
[2019-01-25 22:12] LABS: Glucose,Whole Blood 167 mg/dL (75-99)
[2019-01-25] MEDS: IPRATROPIUM-ALBUTEROL 3 ML NEB INHALATION PRN (23:10)
[2019-01-25 23:14] LABS: Glucose,Whole Blood 148 mg/dL (75-99)
[2019-01-25] MEDS: DEXTROSE 5% IN WATER 100 ML with AMIODARONE 150 MG IV PRN (23:41)
[2019-01-25 23:46] LABS: Glucose,Whole Blood 147 mg/dL (75-99)
[2019-01-26] MEDS: ALBUMIN HUMAN 5% 250 ML in EMPTY BAG 1 BAG IVPB PRN ×5 (00:02→15:00)
[2019-01-26 00:04] LABS: Basophils % (A) 1 %; Eosinophils % (A) 1 %; HCT 21.5 % (39.0-53.0); Lymphocytes # (A) 0.4 k/uL (1.0-4.8); Lymphocytes % (A) 8 %; MCH 30.4 pg (25.0-35.0); MCHC 33.4 g/dL (31.0-37.0); Mean Platelet Volume 8.6; Monocytes # (A) 0.5 k/uL (0-1.0); Monocytes % (A) 9 %; Neutrophils # (A) 4.1 k/uL (1.3-7.7); Neutrophils % (A) 79 %; RBC 2.36 m/uL (4.30-5.90); RDW 14.2 % (11.5-15.5); WBC 5.2 k/uL (3.8-10.6)
[2019-01-26 00:05] LABS: HGB 7.2 gm/dL (13.0-17.5); Platelet Count 66 k/uL (150-450)
[2019-01-26 00:06] LABS: INR 1.2 (<1.2); Partial Thromboplastin Time 47.6 sec (22.0-30.0)
[2019-01-26] MEDS: HEPARIN SODIUM,PORCINE 5,000 UNIT/ML 1 ML VIAL SQ SCH ×2 (00:23→08:54)
[2019-01-26 00:25] LABS: Poikilocytosis (M) Present
[2019-01-26 00:28] LABS: Ionized Calcium 4.7 mg/dL (4.5-5.3)
[2019-01-26 00:30] LABS: ABG PH 7.43 (7.35-7.45); Allen Test Performed? Yes
[2019-01-26 00:31] LABS: ABG Base Excess -0.1 mmol/L; ABG HCO3 24 mmol/L (21-25); ABG PCO2 36 mmHg (35-45); ABG PO2 166 mmHg (83-108); ABG TCO2 25 mmol/L (19-24)
[2019-01-26 00:36] LABS: Albumin 2.7 g/dL (3.5-5.0); Calcium 7.6 mg/dL (8.4-10.2); Magnesium 2.1 mg/dL (1.6-2.3); Phosphorus 3.4 mg/dL (2.5-4.5); Potassium 3.7 mmol/L (3.5-5.1); Total Bilirubin 1.7 mg/dL (0.2-1.3); Total Protein 4.1 g/dL (6.3-8.2)
[2019-01-26 01:39] LABS: Glucose,Whole Blood 164 mg/dL (75-99)
[2019-01-26] MEDS: ACETAMINOPHEN IV (For NPO) 1,000 MG in EMPTY BAG 1 BAG IVPB SCH (01:43)
[2019-01-26 02:12] LABS: Glucose,Whole Blood 160 mg/dL (75-99)
[2019-01-26 03:02] LABS: Glucose,Whole Blood 168 mg/dL (75-99)
[2019-01-26 03:29] LABS: Basophils % (A) 1 %; Eosinophils # (A) 0.1 k/uL (0-0.7); Eosinophils % (A) 1 %; Lymphocytes # (A) 0.2 k/uL (1.0-4.8); Lymphocytes % (A) 4 %; MCH 32.1 pg (25.0-35.0); MCHC 36.4 g/dL (31.0-37.0); MCV 88.3 fL (80.0-100.0); Mean Platelet Volume 9.1; Monocytes # (A) 0.4 k/uL (0-1.0); Monocytes % (A) 9 %; Neutrophils % (A) 84 %; RBC 1.86 m/uL (4.30-5.90); RDW 14.9 % (11.5-15.5); WBC 4.8 k/uL (3.8-10.6)
[2019-01-26 03:33] LABS: HCT 16.5 % (39.0-53.0); Platelet Count 68 k/uL (150-450)
[2019-01-26 03:50] LABS: INR 1.2 (<1.2); Partial Thromboplastin Time 57.6 sec (22.0-30.0); Prothrombin Time 12.6 sec (9.0-12.0)
[2019-01-26 03:51] LABS: Ionized Calcium 4.5 mg/dL (4.5-5.3)
[2019-01-26] MEDS ORDERED: PROTAMINE SULFATE 10 MG/ML 5 ML VIAL IV STA (04:03)
[2019-01-26 04:19] LABS: ALT 27 U/L (21-72); AST 36 U/L (17-59); African American GFR (CKD) 79 (>60 ml/min/1.73 sqM); Albumin 2.7 g/dL (3.5-5.0); Alkaline Phosphatase <20 U/L (38-126); Anion Gap 6 mmol/L; Blood Urea Nitrogen 24 mg/dL (9-20); Calcium 7.5 mg/dL (8.4-10.2); Carbon Dioxide 24 mmol/L (22-30); Chloride 108 mmol/L (98-107); Glucose 146 mg/dL (74-99); Magnesium 2.1 mg/dL (1.6-2.3); Potassium 4.2 mmol/L (3.5-5.1); Sodium 138 mmol/L (137-145); Total Bilirubin 1.5 mg/dL (0.2-1.3)
--- NOTE | 2019-01-26 04:50 | XR ---
EXAM: XR Chest, 1 View CLINICAL HISTORY: ITS.REASON XR Reason: Post Operative Cardiac Surgery TECHNIQUE: Frontal view of the chest. COMPARISON: 01/25/2019. FINDINGS: Lungs: Unremarkable. No consolidation. Pleural space: Unremarkable. No pneumothorax. Heart: Unremarkable. No cardiomegaly. Mediastinum: Unremarkable. Bones/joints: Sternotomy wires are noted in place and are intact. Tubes, lines and devices: Left-sided chest tube remains in place. Endotracheal tube is noted in place, unchanged. Right internal jugular [place]-Belinda catheter is again noted in place. Other findings: There is hypoaeration. IMPRESSION: Hypoaeration.
[2019-01-26] MEDS ORDERED: CHLORHEXIDINE GLUCONATE 15 ML CUP MUCOUS MEM ONE ×2 (05:00→07:00)
[2019-01-26] MEDS ORDERED: HEPARIN SODIUM,PORCINE 5,000 UNIT in SODIUM CHLORIDE 0.9% 500 ML 500 ML IV ONE (05:00)
[2019-01-26] MEDS ORDERED: ALBUMIN HUMAN 25% 50 ML in EMPTY BAG 1 BAG IVPB ONE (05:00)
[2019-01-26 05:16] LABS: Glucose,Whole Blood 156 mg/dL (75-99)
[2019-01-26 05:23] LABS: ABG Base Excess 0.3 mmol/L; ABG HCO3 24 mmol/L (21-25); ABG Oxygen Saturation 99.1 % (94-97); ABG PCO2 35 mmHg (35-45); ABG PH 7.45 (7.35-7.45); ABG PO2 126 mmHg (83-108); ABG TCO2 25 mmol/L (19-24); Allen Test Performed? Yes
[2019-01-26] MEDS: NOREPINEPHRINE 4 MG in SODIUM CHLORIDE 0.9% 250 ML IV SCH ×2 (05:52→20:09)
[2019-01-26] MEDS: AMIODARONE 300 MG in DEXTROSE 5% IN WATER 250 ML IV PRN ×4 (06:03→16:26)
[2019-01-26] MEDS ORDERED: diphenhydrAMINE 50 MG/ML 1 ML VIAL IVP STA (06:24)
[2019-01-26] MEDS ORDERED: diphenhydrAMINE 50 MG/ML 1 ML VIAL ONE (06:26)
[2019-01-26 06:57] LABS: Glucose,Whole Blood 154 mg/dL (75-99)
[2019-01-26] MEDS ORDERED: ceFAZolin 2 GM in SODIUM CHLORIDE 0.9% 30 ML IVPB ONE (07:00)
[2019-01-26] MEDS ORDERED: DEXTROSE 5% IN WATER 1,000 ML with POTASSIUM CHLORIDE 110 MEQ, MAGNESIUM SULFATE 16 MEQ... IV SCH ×5 (07:00)
[2019-01-26] MEDS ORDERED: HEPARIN SODIUM 1,000 UN/ML (10ML VL) IV ONE (07:00)
[2019-01-26] MEDS ORDERED: MANNITOL 25% 12.5 GM/50 ML VIAL IV ONE ×2 (07:00)
[2019-01-26] MEDS ORDERED: SODIUM BICARB 8.4% 50 ML SYR (1 MEQ/ML) IV ONE (07:00)
[2019-01-26] MEDS ORDERED: DEXTROSE 5% IN WATER 1,000 ML with POTASSIUM CHLORIDE 25 MEQ, SODIUM CHLORIDE 2.5MEQ/ML... IV SCH ×6 (07:00)
[2019-01-26] MEDS ORDERED: PROTAMINE SULFATE 250 MG in EMPTY BAG 1 BAG IV ONE (07:00)
[2019-01-26] MEDS ORDERED: PROTAMINE SULFATE 10 MG/ML 25 ML VIAL IV ONE (07:00)
[2019-01-26] MEDS ORDERED: CALCIUM CHLORIDE 100 MG/ML 10 ML SYRINGE ONE (07:03)
[2019-01-26] MEDS ORDERED: SODIUM CHLORIDE 0.9% IRRIG 1,000 ML BTL IRRIGATION ONE (07:03)
[2019-01-26] MEDS ORDERED: VECURONIUM 10 MG VIAL IV ONE (07:03)
[2019-01-26] MEDS ORDERED: INSULIN REGULAR 100 UNIT/ML VIAL ONE (07:03)
[2019-01-26] MEDS ORDERED: MIDAZOLAM 2 MG/2 ML VIAL ONE (07:03)
[2019-01-26] MEDS ORDERED: POTASSIUM CHLORIDE OPEN HEART 20 MEQ/50 ML BAG IVPB ONE (07:03)
[2019-01-26 07:10] LABS: MCH 31.6 pg (25.0-35.0); MCHC 36.3 g/dL (31.0-37.0); MCV 87.1 fL (80.0-100.0); Mean Platelet Volume 10.1; RBC 1.99 m/uL (4.30-5.90); RDW 15.7 % (11.5-15.5); WBC 3.9 k/uL (3.8-10.6)
[2019-01-26 07:26] LABS: HCT 17.3 % (39.0-53.0); HGB 6.3 gm/dL (13.0-17.5); Partial Thromboplastin Time 30.4 sec (22.0-30.0); Prothrombin Time 10.9 sec (9.0-12.0)
[2019-01-26 07:27] LABS: Platelet Count 58 k/uL (150-450)
[2019-01-26 07:42] LABS: ABG Base Excess 2.7 mmol/L; ABG Glucose Whole Blood 141 mg/dL (75-99); ABG HCO3 27 mmol/L (21-25); ABG Ionized Calcium 4.3 mg/dL (4.5-5.3); ABG Lactic Acid Whole Blood 1.2 mmol/L (0.5-1.6); ABG PCO2 40 mmHg (35-45); ABG PH 7.44 (7.35-7.45); ABG PO2 396 mmHg (83-108); ABG Potassium Whole Blood 3.6 mmol/L (3.4-4.5); ABG Sodium Whole Blood 142 mmol/L (135-146); ABG TCO2 28 mmol/L (19-24)
[2019-01-26] MEDS: IPRATROPIUM-ALBUTEROL 3 ML NEB INHALATION SCH ×4 (08:11→19:25)
--- NOTE | 2019-01-26 08:44 | OP ---
OPERATIVE REPORT DATE OF SURGERY: 01/25/2019. PREOP DIAGNOSIS: Coronary artery disease. POSTOPERATIVE DIAGNOSIS: Coronary artery disease. PROCEDURE: 1. Coronary artery bypass grafting x3 vessels (left internal mammary artery to left anterior descending artery, radial artery to posterior descending artery, saphenous vein graft to obtuse marginal artery). 2. Endoscopic vein harvest right greater saphenous vein. 3. Epiaortic ultrasound. 4. Transesophageal echocardiogram. 5. Endoscopic harvest left radial artery. SURGEON: Deep Franco M.D. FREIGHT DISPATCHER: 1. Foster Cruz M.D. 2. AKOSUA John. 3. Peter Novak NP. ANESTHESIA: General. SPECIMEN: None. COMPLICATION: None. INDICATION: The patient is a 78-year-old male with a history of hypercholesterolemia, hypertension, sleep apnea, peripheral vascular disease, status post aortobifemoral bypass, abdominal aortic aneurysm, right lung cancer status post lobectomy followed by chemotherapy and radiation therapy, tobacco use, and alcohol use who was found to have multivessel coronary artery disease including left main disease. Coronary artery bypass was recommended. The risks, benefits, and alternatives of this procedure were discussed with the patient and his family members. His STS risk for surgery was 1.9%. All of their questions were answered. Consent was obtained. FINDINGS: The left internal mammary artery was a good conduit with brisk flow. The saphenous vein was an adequate conduit. The radial artery was a good conduit. The LAD measured 1.3 mm. The PDA measured 1.3 mm. The obtuse marginal artery measured 1.3 mm. PROCEDURE IN DETAIL: The patient was taken to the operating room and placed supine on the operating table. After the induction of general anesthesia, he was prepped and draped in the usual sterile fashion. Preoperative transesophageal echocardiogram revealed a preserved ejection fraction with mild to moderate central mitral regurgitation. There was no evidence of structural abnormalities on the valve. I had considered repairing this mitral valve; however, the patient's systolic pulmonary artery pressures were in the 20s, and the patient denied shortness of breath, lower extremity edema, or other symptoms consistent with heart failure. Given his advanced age and friability of the tissue which was secondary to radiation, I elected not to address the mitral valve. A median sternotomy was performed. The left internal mammary artery was harvested in the standard fashion taking care to clip all branches. Intravenous heparin was administered, and the vessel was transected distally revealing brisk flow. Simultaneously, greater saphenous vein was harvested from the right lower extremity. Overall, the vein was an adequate conduit but was somewhat dilated and contained varicosities. The radial artery was also harvested from the left upper extremity using endoscopic technique. All branches were tied. The radial artery was a good conduit. A pericardial cradle was created. The ascending aorta was palpated. There was no significant calcific plaque noted. Epiaortic ultrasound was also performed on the ascending aorta. Again no calcific plaque or atheromatous disease was identified. The ascending aorta itself was approximately 4.2 cm in diameter and thin-walled. All his tissues appeared to be friable. An arterial cannula was placed in the distal ascending aorta. A venous cannula was placed through the right atrial appendage and directed into the IVC. Both antegrade and retrograde catheters were placed without difficulty. The patient was placed on cardiopulmonary bypass with good decompression of the heart. The aortic cross-clamp was carefully applied. Cardioplegia was delivered in both antegrade and retrograde fashion to achieve arrest of the heart. Of note, antegrade cardioplegia was delivered every 15 to 20 minutes while the patient remained under crossclamp. We began by inspecting the inferior wall. The posterior descending artery was identified. It contained calcific disease in its proximal region. A soft spot free of calcium was dissected free distally. A small arteriotomy was created. This vessel accepted a 1 mm probe. Using the radial artery, an end-to-side anastomosis was created. This was performed using running 7-0 Prolene suture. The graft was hemostatic and had great flow. The radial artery was tacked down to the inferior surface of the heart. Next, attention was turned to the lateral wall. As I was dissecting out the obtuse marginal artery, I noticed a hematoma in the area of the coronary sinus. There appeared to be a perforation. For this reason, I did let down the balloon and did not provide any additional retrograde cardioplegia. The obtuse marginal artery was dissected free. A small arteriotomy was created. This vessel accepted a 1 mm probe and contained diffuse disease. Using the saphenous vein, an end-to-side anastomosis was created. This was performed using running 7-0 Prolene suture. Although there was a significant mismatch between conduit and target, it appeared to have adequate flow. Finally attention was turned to the left anterior descending artery. It was dissected free in its midportion. A small arteriotomy was created. This vessel accepted a 1 mm probe. Using the left internal mammary artery, an end-to-side anastomosis was created. This was performed using running 8-0 Prolene suture. The graft was hemostatic. The mammary pedicle was then tacked down to the anterior surface of the heart. Attention was then turned to the proximal anastomoses. These were performed in end-to- side fashion using running 6-0 Prolene sutures. At this point, I again inspected the hematoma located along the coronary sinus. The catheter itself was not protruding, but there was certainly a perforation. The catheter was removed. Using TachoSil, the area over the perforation was sealed. One liter of warm blood was delivered in antegrade fashion. Lidocaine and magnesium were administered as well. The aortic cross-clamp was removed. The distal anastomoses were inspected and appeared to be hemostatic. Flows were then checked in all three grafts using the Gradient XStim flow measurement probe. All three grafts were open with good flow. Temporary atrial and ventricular pacing wires were placed and brought through the skin. We began to wean the patient off cardiopulmonary bypass. However, additional dark blood appeared to be welling from the groove between the ascending aorta and the pulmonary artery. Close inspection revealed bleeding from the site deep in this location, likely coming from the PA. An interrupted suture was placed. However, bleeding continued. For this reason, the aortic cross-clamp was reapplied. The heart was again arrested using antegrade cardioplegia. At this point, an additional suture was placed at the base of the PA. Additional TachoSil and CoSeal was then placed in this area. Soft tissue was reapproximated to help seal it. The patient was again weaned off Cardiopulmonary bypass. He again without difficulty. Followup transesophageal cardiogram revealed good cardiac index and good left ventricular function. There was no change in the [id number]-[id number] centrally directed mitral regurgitation. Protamine was administered. There were no adverse reactions. The remaining cannulas were then carefully removed. Of note, the patient did have some significant oozing for which extra time was spent in the operating room to achieve hemostasis. Soft tissues were reapproximated over the ascending aorta as well as over the apex of the heart. Straight 32-[place] chest tubes were placed and directed into the left pleural space as well as the mediastinum. These were all secured to the skin using sutures. The sternum was then reapproximated using stainless steel wires in a [id number] fashion. At the completion of the closure, the sternum was well aligned. The remainder of the wound was closed in layers. Sterile dressing was applied. The patient appeared to tolerate the procedure well. He returned to the CCU in critical but stable condition. MMWINSTON / TRISH: [id number] / [place]
[2019-01-26] MEDS ORDERED: MAGNESIUM HYDROXIDE 2,400 MG/10 ML CUP PO PRN (09:00)
[2019-01-26] MEDS ORDERED: ASPIRIN 325 MG TAB PO SCH (09:00)
[2019-01-26] MEDS ORDERED: METOPROLOL TARTRATE 12.5 MG TAB PO SCH (09:00)
[2019-01-26] MEDS ORDERED: BISACODYL 10 MG SUPP RECTAL PRN (09:00)
[2019-01-26] MEDS ORDERED: CLOPIDOGREL 75 MG TAB PO SCH (09:00)
[2019-01-26 09:02] LABS: ABG Hematocrit 19 % (34.0-46.0)
[2019-01-26 09:49] LABS: Glucose,Whole Blood 110 mg/dL (75-99)
--- NOTE | 2019-01-26 09:58 | OP ---
OPERATIVE REPORT DATE OF SURGERY: 01/26/2019. PREOP DIAGNOSIS: Mediastinal bleeding. POSTOPERATIVE DIAGNOSE: Mediastinal bleeding. DESCRIPTION OF PROCEDURE: Mediastinal exploration. SURGEON: Deep Franco M.D. APPLICATION ASSISTANT: Peter Novak NP. ANESTHESIA: General. SPECIMENS: None. COMPLICATIONS: None. INDICATION: The patient is a 78-year-old male who underwent coronary artery bypass surgery yesterday. He was noted to have excessive bleeding from the mediastinal chest tubes overnight though he remained hemodynamically stable. Return to the operating room with mediastinal exploration was recommended. The risks, benefits, and alternatives of the procedure were discussed with the patient's daughter. All of her questions answered. Consent was obtained. FINDINGS: There was no evidence of active bleeding. There was minimal clot noted within the mediastinum. PROCEDURE IN DETAIL: The patient was taken to the operating room and placed supine on the operating table. After the induction of general anesthesia, he was prepped and draped in the usual sterile fashion. Of note, the patient remained hemodynamically stable on low-dose Levophed during this time. The previous incision was opened up and the previously placed sternal wires were removed. There was no obvious bleeding noted from the bone marrow. There was no significant clot noted on the surface of the heart. A pericardial cradle was created. The mediastinum was copiously irrigated with warm saline solution. All surgical sites were then carefully inspected. The arterial cannulation site along with the antegrade site and proximal anastomoses on the ascending aorta were all hemostatic. The area of repair of the pulmonary artery was also hemostatic. The venous cannulation site along with the retrograde site were both hemostatic. Pacing wire sites were hemostatic. The radial artery and its distal anastomosis to the PDA was hemostatic. The left internal mammary artery did not reveal any active bleeding. The LAD anastomosis was hemostatic. The saphenous vein appeared to be free of bleeding. The OM anastomosis was hemostatic. The coronary sinus area which was repaired yesterday was also hemostatic. There was no clot behind the heart. There was no significant clot in the left chest. All 3 chest tubes were irrigated clean. The mediastinum was again copiously irrigated with warm saline solution. Additional inspection was performed and again no active bleeding was noted. Soft tissue was then again replaced over the ascending aorta. The previously placed chest tubes were put back in place. The sternum was then reapproximated using the Wiggins cable system. The wires were placed in a [id number] fashion. At the completion of the closure, the sternum was well aligned. The remainder of the wound was closed in layers. Sterile dressing was applied. The patient appeared to tolerate the procedure well. There were no immediate complications. He remained hemodynamically stable on low-dose Levophed. He did receive 2 units of packed red blood cells in the operating room. He returned to the ICU in stable condition. MMWINSTON / QUYENN: [id number] / ÁLVARO
[2019-01-26] MEDS ORDERED: ALBUMIN HUMAN 5% 250 ML in EMPTY BAG 1 BAG IVPB ONE (10:02)
--- NOTE | 2019-01-26 10:25 | XR ---
EXAMINATION TYPE: XR chest 1V portable DATE OF EXAM: 01/26/2019 COMPARISON: 01/26/2019 INDICATION: Post CABG TECHNIQUE: Single frontal view of the chest is obtained. FINDINGS: The heart size is normal. Mediastinum appears somewhat full. This is stable from comparison. The pulmonary vasculature is normal. Mild left lower lobe infiltrate is present. There is a left-sided chest tube. No pneumothorax is evident. Endotracheal tube tip is above the horacio na. 2 mediastinal tubes are present. [place]-Belinda catheter is present with the tip in the main pulmonary artery. Epicardial leads are present. IMPRESSION: 1. Mild prominence of the superior mediastinum, stable from prior study. 2. Multiple lines and catheters discussed above.
[2019-01-26 10:39] LABS: Basophils % (A) 0 %; Eosinophils # (A) 0.1 k/uL (0-0.7); Eosinophils % (A) 2 %; Lymphocytes # (A) 0.3 k/uL (1.0-4.8); Lymphocytes % (A) 9 %; MCH 31.6 pg (25.0-35.0); MCHC 35.4 g/dL (31.0-37.0); MCV 89.5 fL (80.0-100.0); Mean Platelet Volume 10.2; Monocytes # (A) 0.3 k/uL (0-1.0); Monocytes % (A) 9 %; Neutrophils # (A) 2.2 k/uL (1.3-7.7); Neutrophils % (A) 78 %; RBC 1.82 m/uL (4.30-5.90); RDW 15.1 % (11.5-15.5); WBC 2.8 k/uL (3.8-10.6)
[2019-01-26 10:40] LABS: Ionized Calcium 3.6 mg/dL (4.5-5.3)
[2019-01-26 10:43] LABS: HCT 16.2 % (39.0-53.0); HGB 5.7 gm/dL (13.0-17.5)
[2019-01-26 10:44] LABS: Platelet Count 37 k/uL (150-450)
[2019-01-26 10:46] LABS: ALT 18 U/L (21-72); AST 24 U/L (17-59); African American GFR (CKD) >90 (>60 ml/min/1.73 sqM); Albumin 1.2 g/dL (3.5-5.0); Alkaline Phosphatase <20 U/L (38-126); Anion Gap 4 mmol/L; Blood Urea Nitrogen 13 mg/dL (9-20); Carbon Dioxide 14 mmol/L (22-30); Chloride 126 mmol/L (98-107); Glucose 70 mg/dL (74-99); Sodium 144 mmol/L (137-145); Total Bilirubin 0.7 mg/dL (0.2-1.3); Total Protein 2.3 g/dL (6.3-8.2)
[2019-01-26 10:57] LABS: Calcium 4.4 mg/dL (8.4-10.2); Potassium 2.2 mmol/L (3.5-5.1)
[2019-01-26 10:58] LABS: INR 1.3 (<1.2); Partial Thromboplastin Time 45.1 sec (22.0-30.0); Prothrombin Time 13.6 sec (9.0-12.0)
[2019-01-26 11:03] LABS: Glucose,Whole Blood 108 mg/dL (75-99)
[2019-01-26] MEDS: ATORVASTATIN 40 MG TAB PO SCH (11:25)
[2019-01-26] MEDS: PANTOPRAZOLE 40 MG/10 ML VIAL IVP SCH (11:25)
[2019-01-26 11:33] LABS: Ionized Calcium 4.8 mg/dL (4.5-5.3)
[2019-01-26 11:39] LABS: INR 1.1 (<1.2); Partial Thromboplastin Time 31.7 sec (22.0-30.0); Prothrombin Time 11.5 sec (9.0-12.0)
[2019-01-26 11:40] LABS: HCT 20.9 % (39.0-53.0); MCH 31.5 pg (25.0-35.0); MCHC 35.5 g/dL (31.0-37.0); MCV 88.7 fL (80.0-100.0); Mean Platelet Volume 9.3; RBC 2.36 m/uL (4.30-5.90); RDW 15.4 % (11.5-15.5); WBC 3.9 k/uL (3.8-10.6)
[2019-01-26 11:42] LABS: HGB 7.4 gm/dL (13.0-17.5); Platelet Count 64 k/uL (150-450)
[2019-01-26 11:44] LABS: African American GFR (CKD) >90 (>60 ml/min/1.73 sqM); Anion Gap 7 mmol/L; Blood Urea Nitrogen 23 mg/dL (9-20); Calcium 8.1 mg/dL (8.4-10.2); Carbon Dioxide 23 mmol/L (22-30); Chloride 110 mmol/L (98-107); Glucose 133 mg/dL (74-99); Magnesium 2.1 mg/dL (1.6-2.3); Phosphorus 3.1 mg/dL (2.5-4.5); Sodium 140 mmol/L (137-145)
[2019-01-26] MEDS: LACTATED RINGERS 1,000 ML IV SCH (11:47)
[2019-01-26 12:07] LABS: Glucose,Whole Blood 121 mg/dL (75-99)
[2019-01-26] MEDS ORDERED: hydrALAZINE HCL 20 MG/ML 1 ML VIAL IVP PRN (12:11)
[2019-01-26] MEDS: POTASSIUM CHLORIDE 20 MEQ in WATER FOR INJECTION 1 100ML.BAG IVPB SCH ×3 (12:25→23:07)
[2019-01-26 12:44] LABS: Band Neutrophils % 15 %; Basophils # (M) 0.04 k/uL (0-0.2); Lymphocytes # (M) 0.39 k/uL (1.0-4.8); Monocytes # (M) 0.59 k/uL (0-1.0); Neutrophils % (M) 59 %; Nucleated Red Blood Cells 0 /100 WBC (0-0); Total Cells Counted 100
[2019-01-26] MEDS: CLEVIDIPINE BUTYRATE 25 MG in EMPTY BAG 1 BAG IV SCH (12:57)
[2019-01-26 13:00] LABS: Glucose,Whole Blood 163 mg/dL (75-99)
--- NOTE | 2019-01-26 13:04 | P.PN ---
Subjective Progress Note Date: 01/26/19 This is a 78-year-old white male patient with past medical history significant for hypertension, hypercholesterolemia, history of sleep apnea, abdominal aortic aneurysm with surgical repair in 2017, history of right-sided lung cancer status post resection in 2017 followed by chemotherapy and radiation therapy, past history of tobacco use currently in remission, moderate alcohol use, was diagnosed with multivessel coronary artery disease and moderate mitral regurgitation and was referred to cardiothoracic surgery for intervention. He had a heart catheterization on 11/02/2018 which revealed a 60% lesion in the left main artery, occlusion in the midportion of the left circumflex artery, mild disease in the LAD, there was a 99% critical lesion in the mid right coronary artery. Echocardiogram revealed ejection fraction of 55%, there was moderate mitral regurg with mild mitral annular calcification. On 01/25/2019 patient had three-vessel bypass with VINCENT to LAD, radial artery graft to the RCA, and saphenous graft to the OM, Intra-operatively patient apparently had a perforated pulmonary artery and the coronary sinus requiring repair, overall patient did well, he received Cell Saver, no blood products Intra-Op, did receive 4 to have liters of crystalloids, 1.5 L of albumin. We seen the patient in the ICU in the immediate postoperative period, he is intubated on mechanical ventilator on IMV mode with a rate of 10, tidal volume of 550, FiO2 100% and PEEP of 5, as was switched over to assist control mode of ventilation with a rate of 12, same tidal volume, same FiO2, and PEEP was up to 10. Postop blood gases are pending. Patient had put out 700 mL of sanguinous output from the mediastinal chest tube, left pleural chest tube is relatively dry. He is receiving 5 units of platelets, 2 units of FFP, 2 of albumin, he was given a dose of DDAVP, and 10 units of cryoprecipitate. Postop blood work showed a white blood cell count of 5.8, hemoglobin is 8.3, INR is 1.5, sodium is 139, potassium is 4.2, chloride is 108, CO2 is 26, BUN is 23, creatinine 0.9. Maintenance IV fluids of lactated Ringer's at a rate of 50, no pressors. No sedation, PA pressures 27/14, with a CVP of 4, cardiac output and cardiac index of 4.1 and 2.1 respectively. On 01/26/2019 the patient remains intubated on a mechanical ventilator. The patient continued to have issues with bleeding from the mediastinal tube yesterday. Throughout the night, the patient had on and off bleeding with drop in hemoglobin as low as 6.3 and the patient accordingly was given blood products including packed RBC, a total of 4 units. He also received a total of 4 units of fresh frozen plasma 20 units of cryoprecipitate, 5 units of platelets. Note that he was showing signs of coagulopathy which probably complicated his bleeding further. Following all this, the morning hemoglobin was at 6.3. There was still concern of ongoing bleed and for that reason the patient was taken to the operating room and expiration was done and there was no evidence of any ongoing bleeding at a time of the surgical exploration. The patient was brought back to the ICU intubated on a mechanical ventilator. At the time of arrival, hemoglobin came back at 7.4 and his cardiac output was low initially with an index of 1.5 and the patient accordingly was given albumin 5% 2, a total of 500 mL and subsequently the patient's cardiac output and index improved. He is still producing adequate amount of urine output. No significant bleeding from his mediastinal or pleural chest tube in the time being. Note that he also developed some hives following his packed RBC transfusion and the patient was given Benadryl. At this point in time, the patient remains intubated on a mechanical ventilator. His assist-control mode of ventilation with a rate of 20 with tidal volume of 550 and FiO2 of 40% with a PEEP of 5. The most recent blood gases showed a pH of 7.44 with a pCO2 of 40 and pO2 of 396 and this was done and FiO2 of 100%. Accordingly, the FiO2 was brought back down to 40%. His chest x-ray shows routine postsurgical changes with adequate positioning of the ET tube, chest tubes and [place]-Belinda catheter. No evidence of any pneumothorax. No evidence of any pneumonia. No evidence of any ulnar infiltrates or effusions. The most recent quite shows an INR of 1.1 with a PT of 11.5 and a PTT of 31.7 and the average 11 is at 20 on 22. The patient is producing adequate amount of urine output. His cardiac rhythmat the rate of 90. He did have a bout of atrial fibrillation last night placed on amiodarone which is currently running at 0.5 mg per minute. He is interested rhythm for now is sinus. He is on no pressors. He is off the Cardizem drip. The blood pressure subsequently came up after this consideration of Cardizem and adequate resuscitation. The patient was started on Catapres for blood pressure control. He is also on insulin for blood sugar control. Sedation is with Precedex Objective - Vital Signs Vital signs: Vital Signs Temp 98.4 F 01/26/19 12:00 Pulse 81 01/26/19 12:30 Resp 30 H 01/26/19 12:30 BP 150/100 01/26/19 12:30 Pulse Ox 98 01/26/19 12:30 Intake & Output 01/25/19 01/26/19 01/26/19 18:59 06:59 18:59 Intake Total 1125 4005.835 864.094 Output Total 3305 3604 50 Balance -2180 401.835 814.094 Weight 72.575 kg Intake: IV 180 978 81 .9NS Pressure Bag 18 108 9 Lactated Ringers 1,000 ml 100 500 50 @ 50 mls/hr IV .Q20H RASHAD Rx#:[id number] cardiac output 30 270 20 ceFAZolin 2 gm In Sodium 100 Chloride 0.9% 50 ml @ 100 mls/hr IVPB Q8HR RASHAD Rx# :[id number] Intake, IV Titration 255.835 163.094 Amount Dexmedetomidine/0.9% NaCl 10.705 3.084 (Pmx) 400 mcg In Empty Bag 1 bag @ Titrate IV . Q0M RASHAD Rx#:[id number] Insulin Regular 100 unit 12.308 In Sodium Chloride 0.9% 100 ml @ Per Protocol IV .Q0M RASHAD Rx#:[id number] Norepinephrine 4 mg In 232.822 160.01 Sodium Chloride 0.9% 250 ml @ 0.04 MCG/KG/MIN 11. 06 mls/hr IV .[id number] RASHAD Rx#:[id number] Blood Product 945 3089 620 Ffp 24 Cpd Unit 314 [id number] Ffp 24 Cpd Unit 317 [id number] Ffp 24 Cpda Unit 214 [id number] Ffp 24 Cpda Unit 267 [id number] Platelet Irr Pheresis 307 Acda1 Unit [id number] Platelet Irr Pheresis 206 Acda1 Unit [id number] Pooled Cryoprecipitate 105 Unit [id number] Pooled Cryoprecipitate 86 Unit [id number] Pooled Cryoprecipitate 98 Unit [id number] Pooled Cryoprecipitate 98 Unit [id number] Pooled Cryoprecipitate 104 Unit [id number] Pooled Cryoprecipitate 101 Unit [id number] Pooled Cryoprecipitate 110 Unit [id number] Rc As-1 Unit 310 [id number] Rc As-1 Unit 310 [id number] Rc As-1 Unit 310 [id number] Rc As-1 Unit 310 [id number] Rc Irr As1 Unit 310 [id number] Rc Pheresis As-3 Unit 310 [id number] Other 150 Rc As-1 Unit 150 [id number] Output: Chest Tube Drainage 655 2529 Left Pleural 75 339 Mediastinal Chest Tube 580 2190 Drainage 320 Left arm 30 Right Lower Calf 290 Urine 650 755 50 Estimated Blood Loss 1999 Other: Voiding Method Indwelling Catheter Indwelling Catheter ABP, PAP, CO, CI - Last Documented Arterial Blood Pressure 130/67 Pulmonary Artery Pressure 25/13 Cardiac Output 4.3 Cardiac Index 2.2 - Exam GENERAL EXAM: 78-year-old white male patient intubated, sedated on mechanical ventilator in no apparent distress. HEAD: Normocephalic/atraumatic. EYES: Normal reaction of pupils, equal size. Conjunctiva pink, sclera white. NOSE: Clear with pink turbinates. THROAT: No erythema or exudates. NECK: No masses, no JVD, no thyroid enlargement, no adenopathy. CHEST: No chest wall deformity. Symmetrical expansion. Midsternal incision is clean dry and intact, 2 mediastinal one right pleural chest tube. Atrial ventricular epicardial wires connected to the external pacemaker and patient is being paced at a AAI mode at a rate of 90 BPM LUNGS: Equal air entry with no crackles, wheeze, rhonchi or dullness. CVS: Regular rate and rhythm, normal S1 and S2, no gallops, no murmurs, no rubs ABDOMEN: Soft, nontender. No hepatosplenomegaly, normal bowel sounds, no guarding or rigidity. EXTREMITIES: No clubbing, no edema, no cyanosis, 2+ pulses and upper and lower extremities. Lower extremities are kelton wrapped and SCDs are present MUSCULOSKELETAL: Muscle strength and tone normal. SPINE: No scoliosis or deformity SKIN: No rashes CENTRAL NERVOUS SYSTEM: Sedated, intubated. No focal deficits, tone is normal in all 4 extremities. - Labs CBC & Chem 7: 01/26/19 11:13 01/26/19 11:13 Labs: Abnormal Lab Results - Last 24 Hours (Table) 01/17/19 01/25/19 01/25/19 Range/Units 09:00 08:40 10:05 WBC (3.8-10.6) k/uL RBC (4.30-5.90) m/uL Hgb (13.0-17.5) gm/dL Hct (39.0-53.0) % RDW (11.5-15.5) % Plt Count (150-450) k/uL Lymphocytes # (1.0-4.8) k/uL Lymphocytes # (Manual) (1.0-4.8) k/uL PT (9.0-12.0) sec INR (<1.2) APTT (22.0-30.0) sec Fibrinogen (200-500) mg/dL ABG pH 7.18 L* (7.35-7.45) ABG pCO2 67 H (35-45) mmHg ABG pO2 >420 H 257 H (83-108) mmHg ABG HCO3 (21-25) mmol/L ABG Total CO2 26 H 27 H (19-24) mmol/L ABG O2 Saturation 100.0 H 99.6 H (94-97) % ABG Hematocrit (34.0-46.0) % ABG Sodium (135-146) mmol/L ABG Potassium (3.4-4.5) mmol/L ABG Ionized Calcium (4.5-5.3) mg/dL ABG Glucose 119 H 137 H (75-99) mg/dL Hemoglobin 12.2 L (13.0-17.5) gm/dL Potassium (3.5-5.1) mmol/L Chloride (98-107) mmol/L Carbon Dioxide (22-30) mmol/L BUN (9-20) mg/dL Creatinine (0.66-1.25) mg/dL Glucose (74-99) mg/dL POC Glucose (mg/dL) (75-99) mg/dL Calcium (8.4-10.2) mg/dL Ionized Calcium Yohan (4.5-5.3) mg/dL Magnesium (1.6-2.3) mg/dL Total Bilirubin (0.2-1.3) mg/dL ALT (21-72) U/L Alkaline Phosphatase (38-126) U/L Total Protein (6.3-8.2) g/dL Albumin (3.5-5.0) g/dL Arterial Blood Potassium (3.4-4.5) mmol/L Arterial Blood Glucose 119 H 137 H (75-99) mg/dL Crossmatch See Detail 01/25/19 01/25/19 01/25/19 Range/Units 10:52 11:16 11:47 WBC (3.8-10.6) k/uL RBC (4.30-5.90) m/uL Hgb (13.0-17.5) gm/dL Hct (39.0-53.0) % RDW (11.5-15.5) % Plt Count (150-450) k/uL Lymphocytes # (1.0-4.8) k/uL Lymphocytes # (Manual) (1.0-4.8) k/uL PT (9.0-12.0) sec INR (<1.2) APTT (22.0-30.0) sec Fibrinogen (200-500) mg/dL ABG pH 7.30 L 7.30 L (7.35-7.45) ABG pCO2 47 H (35-45) mmHg ABG pO2 208 H 403 H 333 H (83-108) mmHg ABG HCO3 (21-25) mmol/L ABG Total CO2 26 H (19-24) mmol/L ABG O2 Saturation 99.7 H 100.0 H 100.0 H (94-97) % ABG Hematocrit 26 L 25 L (34.0-46.0) % ABG Sodium 132 L 132 L (135-146) mmol/L ABG Potassium 5.6 H (3.4-4.5) mmol/L ABG Ionized Calcium 4.0 L 4.0 L (4.5-5.3) mg/dL ABG Glucose 151 H 142 H 258 H (75-99) mg/dL Hemoglobin 12.1 L 8.3 L 8.0 L (13.0-17.5) gm/dL Potassium (3.5-5.1) mmol/L Chloride (98-107) mmol/L Carbon Dioxide (22-30) mmol/L BUN (9-20) mg/dL Creatinine (0.66-1.25) mg/dL Glucose (74-99) mg/dL POC Glucose (mg/dL) (75-99) mg/dL Calcium (8.4-10.2) mg/dL Ionized Calcium Yohan (4.5-5.3) mg/dL Magnesium (1.6-2.3) mg/dL Total Bilirubin (0.2-1.3) mg/dL ALT (21-72) U/L Alkaline Phosphatase (38-126) U/L Total Protein (6.3-8.2) g/dL Albumin (3.5-5.0) g/dL Arterial Blood Potassium 5.6 H (3.4-4.5) mmol/L Arterial Blood Glucose 151 H 142 H 258 H (75-99) mg/dL Crossmatch 01/25/19 01/25/19 01/25/19 Range/Units 12:57 17:19 17:21 WBC (3.8-10.6) k/uL RBC 2.56 L (4.30-5.90) m/uL Hgb 8.3 L D (13.0-17.5) gm/dL Hct 23.6 L (39.0-53.0) % RDW (11.5-15.5) % Plt Count 46 L D (150-450) k/uL Lymphocytes # 0.3 L (1.0-4.8) k/uL Lymphocytes # (Manual) (1.0-4.8) k/uL PT (9.0-12.0) sec INR (<1.2) APTT (22.0-30.0) sec Fibrinogen (200-500) mg/dL ABG pH (7.35-7.45) ABG pCO2 (35-45) mmHg ABG pO2 280 H (83-108) mmHg ABG HCO3 (21-25) mmol/L ABG Total CO2 26 H (19-24) mmol/L ABG O2 Saturation 100.0 H (94-97) % ABG Hematocrit 26 L (34.0-46.0) % ABG Sodium 133 L (135-146) mmol/L ABG Potassium 5.3 H (3.4-4.5) mmol/L ABG Ionized Calcium 4.1 L (4.5-5.3) mg/dL ABG Glucose 250 H (75-99) mg/dL Hemoglobin 8.5 L (13.0-17.5) gm/dL Potassium (3.5-5.1) mmol/L Chloride (98-107) mmol/L Carbon Dioxide (22-30) mmol/L BUN (9-20) mg/dL Creatinine (0.66-1.25) mg/dL Glucose (74-99) mg/dL POC Glucose (mg/dL) 116 H (75-99) mg/dL Calcium (8.4-10.2) mg/dL Ionized Calcium Yohan (4.5-5.3) mg/dL Magnesium (1.6-2.3) mg/dL Total Bilirubin (0.2-1.3) mg/dL ALT (21-72) U/L Alkaline Phosphatase (38-126) U/L Total Protein (6.3-8.2) g/dL Albumin (3.5-5.0) g/dL Arterial Blood Potassium 5.3 H (3.4-4.5) mmol/L Arterial Blood Glucose 250 H (75-99) mg/dL Crossmatch 01/25/19 01/25/19 01/25/19 Range/Units 17:21 17:21 17:21 WBC (3.8-10.6) k/uL RBC (4.30-5.90) m/uL Hgb (13.0-17.5) gm/dL Hct (39.0-53.0) % RDW (11.5-15.5) % Plt Count (150-450) k/uL Lymphocytes # (1.0-4.8) k/uL Lymphocytes # (Manual) (1.0-4.8) k/uL PT 15.4 H (9.0-12.0) sec INR 1.5 H (<1.2) APTT 44.7 H (22.0-30.0) sec Fibrinogen 110 L (200-500) mg/dL ABG pH (7.35-7.45) ABG pCO2 (35-45) mmHg ABG pO2 (83-108) mmHg ABG HCO3 (21-25) mmol/L ABG Total CO2 (19-24) mmol/L ABG O2 Saturation (94-97) % ABG Hematocrit (34.0-46.0) % ABG Sodium (135-146) mmol/L ABG Potassium (3.4-4.5) mmol/L ABG Ionized Calcium (4.5-5.3) mg/dL ABG Glucose (75-99) mg/dL Hemoglobin (13.0-17.5) gm/dL Potassium (3.5-5.1) mmol/L Chloride 108 H (98-107) mmol/L Carbon Dioxide (22-30) mmol/L BUN 23 H (9-20) mg/dL Creatinine (0.66-1.25) mg/dL Glucose 108 H (74-99) mg/dL POC Glucose (mg/dL) (75-99) mg/dL Calcium 7.9 L (8.4-10.2) mg/dL Ionized Calcium Yohan (4.5-5.3) mg/dL Magnesium 2.5 H (1.6-2.3) mg/dL Total Bilirubin 1.6 H (0.2-1.3) mg/dL ALT (21-72) U/L Alkaline Phosphatase 24 L (38-126) U/L Total Protein 3.8 L (6.3-8.2) g/dL Albumin 2.6 L (3.5-5.0) g/dL Arterial Blood Potassium (3.4-4.5) mmol/L Arterial Blood Glucose (75-99) mg/dL Crossmatch 01/25/19 01/25/19 01/25/19 Range/Units 17:31 18:21 19:55 WBC (3.8-10.6) k/uL RBC (4.30-5.90) m/uL Hgb (13.0-17.5) gm/dL Hct (39.0-53.0) % RDW (11.5-15.5) % Plt Count (150-450) k/uL Lymphocytes # (1.0-4.8) k/uL Lymphocytes # (Manual) (1.0-4.8) k/uL PT (9.0-12.0) sec INR (<1.2) APTT (22.0-30.0) sec Fibrinogen (200-500) mg/dL ABG pH 7.34 L (7.35-7.45) ABG pCO2 49 H (35-45) mmHg ABG pO2 >400 H (83-108) mmHg ABG HCO3 26 H (21-25) mmol/L ABG Total CO2 28 H (19-24) mmol/L ABG O2 Saturation 99.8 H (94-97) % ABG Hematocrit (34.0-46.0) % ABG Sodium (135-146) mmol/L ABG Potassium (3.4-4.5) mmol/L ABG Ionized Calcium (4.5-5.3) mg/dL ABG Glucose (75-99) mg/dL Hemoglobin (13.0-17.5) gm/dL Potassium (3.5-5.1) mmol/L Chloride (98-107) mmol/L Carbon Dioxide (22-30) mmol/L BUN (9-20) mg/dL Creatinine (0.66-1.25) mg/dL Glucose (74-99) mg/dL POC Glucose (mg/dL) 106 H 189 H (75-99) mg/dL Calcium (8.4-10.2) mg/dL Ionized Calcium Yohan (4.5-5.3) mg/dL Magnesium (1.6-2.3) mg/dL Total Bilirubin (0.2-1.3) mg/dL ALT (21-72) U/L Alkaline Phosphatase (38-126) U/L Total Protein (6.3-8.2) g/dL Albumin (3.5-5.0) g/dL Arterial Blood Potassium (3.4-4.5) mmol/L Arterial Blood Glucose (75-99) mg/dL Crossmatch 01/25/19 01/25/19 01/25/19 Range/Units 19:57 19:57 21:00 WBC 3.1 L (3.8-10.6) k/uL RBC 1.61 L (4.30-5.90) m/uL Hgb 5.2 L* D (13.0-17.5) gm/dL Hct 14.7 L* (39.0-53.0) % RDW (11.5-15.5) % Plt Count 45 L (150-450) k/uL Lymphocytes # 0.1 L (1.0-4.8) k/uL Lymphocytes # (Manual) (1.0-4.8) k/uL PT 13.0 H (9.0-12.0) sec INR 1.3 H (<1.2) APTT 35.9 H (22.0-30.0) sec Fibrinogen (200-500) mg/dL ABG pH (7.35-7.45) ABG pCO2 (35-45) mmHg ABG pO2 (83-108) mmHg ABG HCO3 (21-25) mmol/L ABG Total CO2 (19-24) mmol/L ABG O2 Saturation (94-97) % ABG Hematocrit (34.0-46.0) % ABG Sodium (135-146) mmol/L ABG Potassium (3.4-4.5) mmol/L ABG Ionized Calcium (4.5-5.3) mg/dL ABG Glucose (75-99) mg/dL Hemoglobin (13.0-17.5) gm/dL Potassium (3.5-5.1) mmol/L Chloride (98-107) mmol/L Carbon Dioxide (22-30) mmol/L BUN (9-20) mg/dL Creatinine (0.66-1.25) mg/dL Glucose (74-99) mg/dL POC Glucose (mg/dL) 176 H (75-99) mg/dL Calcium (8.4-10.2) mg/dL Ionized Calcium Yohan (4.5-5.3) mg/dL Magnesium (1.6-2.3) mg/dL Total Bilirubin (0.2-1.3) mg/dL ALT (21-72) U/L Alkaline Phosphatase (38-126) U/L Total Protein (6.3-8.2) g/dL Albumin (3.5-5.0) g/dL Arterial Blood Potassium (3.4-4.5) mmol/L Arterial Blood Glucose (75-99) mg/dL Crossmatch 01/25/19 01/25/19 01/25/19 Range/Units 21:36 21:58 23:01 WBC (3.8-10.6) k/uL RBC (4.30-5.90) m/uL Hgb (13.0-17.5) gm/dL Hct (39.0-53.0) % RDW (11.5-15.5) % Plt Count (150-450) k/uL Lymphocytes # (1.0-4.8) k/uL Lymphocytes # (Manual) (1.0-4.8) k/uL PT (9.0-12.0) sec INR (<1.2) APTT (22.0-30.0) sec Fibrinogen (200-500) mg/dL ABG pH (7.35-7.45) ABG pCO2 (35-45) mmHg ABG pO2 169 H (83-108) mmHg ABG HCO3 26 H (21-25) mmol/L ABG Total CO2 27 H (19-24) mmol/L ABG O2 Saturation 99.4 H (94-97) % ABG Hematocrit (34.0-46.0) % ABG Sodium (135-146) mmol/L ABG Potassium (3.4-4.5) mmol/L ABG Ionized Calcium (4.5-5.3) mg/dL ABG Glucose (75-99) mg/dL Hemoglobin (13.0-17.5) gm/dL Potassium (3.5-5.1) mmol/L Chloride (98-107) mmol/L Carbon Dioxide (22-30) mmol/L BUN (9-20) mg/dL Creatinine (0.66-1.25) mg/dL Glucose (74-99) mg/dL POC Glucose (mg/dL) 167 H 148 H (75-99) mg/dL Calcium (8.4-10.2) mg/dL Ionized Calcium Yohan (4.5-5.3) mg/dL Magnesium (1.6-2.3) mg/dL Total Bilirubin (0.2-1.3) mg/dL ALT (21-72) U/L Alkaline Phosphatase (38-126) U/L Total Protein (6.3-8.2) g/dL Albumin (3.5-5.0) g/dL Arterial Blood Potassium (3.4-4.5) mmol/L Arterial Blood Glucose (75-99) mg/dL Crossmatch 01/25/19 01/25/19 01/25/19 Range/Units 23:43 23:50 23:50 WBC (3.8-10.6) k/uL RBC 2.36 L (4.30-5.90) m/uL Hgb 7.2 L D (13.0-17.5) gm/dL Hct 21.5 L (39.0-53.0) % RDW (11.5-15.5) % Plt Count 66 L (150-450) k/uL Lymphocytes # 0.4 L (1.0-4.8) k/uL Lymphocytes # (Manual) (1.0-4.8) k/uL PT (9.0-12.0) sec INR 1.2 H (<1.2) APTT 47.6 H (22.0-30.0) sec Fibrinogen (200-500) mg/dL ABG pH (7.35-7.45) ABG pCO2 (35-45) mmHg ABG pO2 (83-108) mmHg ABG HCO3 (21-25) mmol/L ABG Total CO2 (19-24) mmol/L ABG O2 Saturation (94-97) % ABG Hematocrit (34.0-46.0) % ABG Sodium (135-146) mmol/L ABG Potassium (3.4-4.5) mmol/L ABG Ionized Calcium (4.5-5.3) mg/dL ABG Glucose (75-99) mg/dL Hemoglobin (13.0-17.5) gm/dL Potassium (3.5-5.1) mmol/L Chloride (98-107) mmol/L Carbon Dioxide (22-30) mmol/L BUN (9-20) mg/dL Creatinine (0.66-1.25) mg/dL Glucose (74-99) mg/dL POC Glucose (mg/dL) 147 H (75-99) mg/dL Calcium (8.4-10.2) mg/dL Ionized Calcium Yohan (4.5-5.3) mg/dL Magnesium (1.6-2.3) mg/dL Total Bilirubin (0.2-1.3) mg/dL ALT (21-72) U/L Alkaline Phosphatase (38-126) U/L Total Protein (6.3-8.2) g/dL Albumin (3.5-5.0) g/dL Arterial Blood Potassium (3.4-4.5) mmol/L Arterial Blood Glucose (75-99) mg/dL Crossmatch 01/25/19 01/26/19 01/26/19 Range/Units 23:50 00:24 01:25 WBC (3.8-10.6) k/uL RBC (4.30-5.90) m/uL Hgb (13.0-17.5) gm/dL Hct (39.0-53.0) % RDW (11.5-15.5) % Plt Count (150-450) k/uL Lymphocytes # (1.0-4.8) k/uL Lymphocytes # (Manual) (1.0-4.8) k/uL PT (9.0-12.0) sec INR (<1.2) APTT (22.0-30.0) sec Fibrinogen (200-500) mg/dL ABG pH (7.35-7.45) ABG pCO2 (35-45) mmHg ABG pO2 166 H (83-108) mmHg ABG HCO3 (21-25) mmol/L ABG Total CO2 25 H (19-24) mmol/L ABG O2 Saturation 99.0 H (94-97) % ABG Hematocrit (34.0-46.0) % ABG Sodium (135-146) mmol/L ABG Potassium (3.4-4.5) mmol/L ABG Ionized Calcium (4.5-5.3) mg/dL ABG Glucose (75-99) mg/dL Hemoglobin (13.0-17.5) gm/dL Potassium (3.5-5.1) mmol/L Chloride 108 H (98-107) mmol/L Carbon Dioxide (22-30) mmol/L BUN 22 H (9-20) mg/dL Creatinine (0.66-1.25) mg/dL Glucose 134 H (74-99) mg/dL POC Glucose (mg/dL) 164 H (75-99) mg/dL Calcium 7.6 L (8.4-10.2) mg/dL Ionized Calcium Yohan (4.5-5.3) mg/dL Magnesium (1.6-2.3) mg/dL Total Bilirubin 1.7 H (0.2-1.3) mg/dL ALT (21-72) U/L Alkaline Phosphatase 27 L (38-126) U/L Total Protein 4.1 L (6.3-8.2) g/dL Albumin 2.7 L (3.5-5.0) g/dL Arterial Blood Potassium (3.4-4.5) mmol/L Arterial Blood Glucose (75-99) mg/dL Crossmatch 01/26/19 01/26/19 01/26/19 Range/Units 01:59 02:58 03:00 WBC (3.8-10.6) k/uL RBC 1.86 L (4.30-5.90) m/uL Hgb 6.0 L* (13.0-17.5) gm/dL Hct 16.5 L* (39.0-53.0) % RDW (11.5-15.5) % Plt Count 68 L (150-450) k/uL Lymphocytes # 0.2 L (1.0-4.8) k/uL Lymphocytes # (Manual) (1.0-4.8) k/uL PT (9.0-12.0) sec INR (<1.2) APTT (22.0-30.0) sec Fibrinogen (200-500) mg/dL ABG pH (7.35-7.45) ABG pCO2 (35-45) mmHg ABG pO2 (83-108) mmHg ABG HCO3 (21-25) mmol/L ABG Total CO2 (19-24) mmol/L ABG O2 Saturation (94-97) % ABG Hematocrit (34.0-46.0) % ABG Sodium (135-146) mmol/L ABG Potassium (3.4-4.5) mmol/L ABG Ionized Calcium (4.5-5.3) mg/dL ABG Glucose (75-99) mg/dL Hemoglobin (13.0-17.5) gm/dL Potassium (3.5-5.1) mmol/L Chloride (98-107) mmol/L Carbon Dioxide (22-30) mmol/L BUN (9-20) mg/dL Creatinine (0.66-1.25) mg/dL Glucose (74-99) mg/dL POC Glucose (mg/dL) 160 H 168 H (75-99) mg/dL Calcium (8.4-10.2) mg/dL Ionized Calcium Yohan (4.5-5.3) mg/dL Magnesium (1.6-2.3) mg/dL Total Bilirubin (0.2-1.3) mg/dL ALT (21-72) U/L Alkaline Phosphatase (38-126) U/L Total Protein (6.3-8.2) g/dL Albumin (3.5-5.0) g/dL Arterial Blood Potassium (3.4-4.5) mmol/L Arterial Blood Glucose (75-99) mg/dL Crossmatch 01/26/19 01/26/19 01/26/19 Range/Units 03:00 03:00 05:12 WBC (3.8-10.6) k/uL RBC (4.30-5.90) m/uL Hgb (13.0-17.5) gm/dL Hct (39.0-53.0) % RDW (11.5-15.5) % Plt Count (150-450) k/uL Lymphocytes # (1.0-4.8) k/uL Lymphocytes # (Manual) (1.0-4.8) k/uL PT 12.6 H (9.0-12.0) sec INR 1.2 H (<1.2) APTT 57.6 H (22.0-30.0) sec Fibrinogen 180 L (200-500) mg/dL ABG pH (7.35-7.45) ABG pCO2 (35-45) mmHg ABG pO2 (83-108) mmHg ABG HCO3 (21-25) mmol/L ABG Total CO2 (19-24) mmol/L ABG O2 Saturation (94-97) % ABG Hematocrit (34.0-46.0) % ABG Sodium (135-146) mmol/L ABG Potassium (3.4-4.5) mmol/L ABG Ionized Calcium (4.5-5.3) mg/dL ABG Glucose (75-99) mg/dL Hemoglobin (13.0-17.5) gm/dL Potassium (3.5-5.1) mmol/L Chloride 108 H (98-107) mmol/L Carbon Dioxide (22-30) mmol/L BUN 24 H (9-20) mg/dL Creatinine (0.66-1.25) mg/dL Glucose 146 H (74-99) mg/dL POC Glucose (mg/dL) 156 H (75-99) mg/dL Calcium 7.5 L (8.4-10.2) mg/dL Ionized Calcium Yohan (4.5-5.3) mg/dL Magnesium (1.6-2.3) mg/dL Total Bilirubin 1.5 H (0.2-1.3) mg/dL ALT (21-72) U/L Alkaline Phosphatase <20 L (38-126) U/L Total Protein 4.0 L (6.3-8.2) g/dL Albumin 2.7 L (3.5-5.0) g/dL Arterial Blood Potassium (3.4-4.5) mmol/L Arterial Blood Glucose (75-99) mg/dL Crossmatch 01/26/19 01/26/19 01/26/19 Range/Units 05:18 06:51 06:51 WBC (3.8-10.6) k/uL RBC 1.99 L (4.30-5.90) m/uL Hgb 6.3 L* (13.0-17.5) gm/dL Hct 17.3 L* (39.0-53.0) % RDW 15.7 H (11.5-15.5) % Plt Count 58 L (150-450) k/uL Lymphocytes # (1.0-4.8) k/uL Lymphocytes # (Manual) (1.0-4.8) k/uL PT (9.0-12.0) sec INR (<1.2) APTT 30.4 H (22.0-30.0) sec Fibrinogen (200-500) mg/dL ABG pH (7.35-7.45) ABG pCO2 (35-45) mmHg ABG pO2 126 H (83-108) mmHg ABG HCO3 (21-25) mmol/L ABG Total CO2 25 H (19-24) mmol/L ABG O2 Saturation 99.1 H (94-97) % ABG Hematocrit (34.0-46.0) % ABG Sodium (135-146) mmol/L ABG Potassium (3.4-4.5) mmol/L ABG Ionized Calcium (4.5-5.3) mg/dL ABG Glucose (75-99) mg/dL Hemoglobin (13.0-17.5) gm/dL Potassium (3.5-5.1) mmol/L Chloride (98-107) mmol/L Carbon Dioxide (22-30) mmol/L BUN (9-20) mg/dL Creatinine (0.66-1.25) mg/dL Glucose (74-99) mg/dL POC Glucose (mg/dL) (75-99) mg/dL Calcium (8.4-10.2) mg/dL Ionized Calcium Yohan (4.5-5.3) mg/dL Magnesium (1.6-2.3) mg/dL Total Bilirubin (0.2-1.3) mg/dL ALT (21-72) U/L Alkaline Phosphatase (38-126) U/L Total Protein (6.3-8.2) g/dL Albumin (3.5-5.0) g/dL Arterial Blood Potassium (3.4-4.5) mmol/L Arterial Blood Glucose (75-99) mg/dL Crossmatch 01/26/19 01/26/19 01/26/19 Range/Units 06:54 07:44 09:45 WBC (3.8-10.6) k/uL RBC (4.30-5.90) m/uL Hgb (13.0-17.5) gm/dL Hct (39.0-53.0) % RDW (11.5-15.5) % Plt Count (150-450) k/uL Lymphocytes # (1.0-4.8) k/uL Lymphocytes # (Manual) (1.0-4.8) k/uL PT (9.0-12.0) sec INR (<1.2) APTT (22.0-30.0) sec Fibrinogen (200-500) mg/dL ABG pH (7.35-7.45) ABG pCO2 (35-45) mmHg ABG pO2 396 H (83-108) mmHg ABG HCO3 27 H (21-25) mmol/L ABG Total CO2 28 H (19-24) mmol/L ABG O2 Saturation 100.0 H (94-97) % ABG Hematocrit 19 L* (34.0-46.0) % ABG Sodium (135-146) mmol/L ABG Potassium (3.4-4.5) mmol/L ABG Ionized Calcium 4.3 L (4.5-5.3) mg/dL ABG Glucose 141 H (75-99) mg/dL Hemoglobin 6.2 L* (13.0-17.5) gm/dL Potassium (3.5-5.1) mmol/L Chloride (98-107) mmol/L Carbon Dioxide (22-30) mmol/L BUN (9-20) mg/dL Creatinine (0.66-1.25) mg/dL Glucose (74-99) mg/dL POC Glucose (mg/dL) 154 H 110 H (75-99) mg/dL Calcium (8.4-10.2) mg/dL Ionized Calcium Yohan (4.5-5.3) mg/dL Magnesium (1.6-2.3) mg/dL Total Bilirubin (0.2-1.3) mg/dL ALT (21-72) U/L Alkaline Phosphatase (38-126) U/L Total Protein (6.3-8.2) g/dL Albumin (3.5-5.0) g/dL Arterial Blood Potassium (3.4-4.5) mmol/L Arterial Blood Glucose 141 H (75-99) mg/dL Crossmatch 01/26/19 01/26/19 01/26/19 Range/Units 10:05 10:05 10:05 WBC 2.8 L (3.8-10.6) k/uL RBC 1.82 L (4.30-5.90) m/uL Hgb 5.7 L* (13.0-17.5) gm/dL Hct 16.2 L* (39.0-53.0) % RDW (11.5-15.5) % Plt Count 37 L (150-450) k/uL Lymphocytes # 0.3 L (1.0-4.8) k/uL Lymphocytes # (Manual) (1.0-4.8) k/uL PT 13.6 H (9.0-12.0) sec INR 1.3 H (<1.2) APTT 45.1 H (22.0-30.0) sec Fibrinogen (200-500) mg/dL ABG pH (7.35-7.45) ABG pCO2 (35-45) mmHg ABG pO2 (83-108) mmHg ABG HCO3 (21-25) mmol/L ABG Total CO2 (19-24) mmol/L ABG O2 Saturation (94-97) % ABG Hematocrit (34.0-46.0) % ABG Sodium (135-146) mmol/L ABG Potassium (3.4-4.5) mmol/L ABG Ionized Calcium (4.5-5.3) mg/dL ABG Glucose (75-99) mg/dL Hemoglobin (13.0-17.5) gm/dL Potassium 2.2 L* (3.5-5.1) mmol/L Chloride 126 H (98-107) mmol/L Carbon Dioxide 14 L (22-30) mmol/L BUN (9-20) mg/dL Creatinine 0.52 L (0.66-1.25) mg/dL Glucose 70 L (74-99) mg/dL POC Glucose (mg/dL) (75-99) mg/dL Calcium 4.4 L* (8.4-10.2) mg/dL Ionized Calcium Yohan 3.6 L (4.5-5.3) mg/dL Magnesium (1.6-2.3) mg/dL Total Bilirubin (0.2-1.3) mg/dL ALT 18 L (21-72) U/L Alkaline Phosphatase <20 L (38-126) U/L Total Protein 2.3 L (6.3-8.2) g/dL Albumin 1.2 L (3.5-5.0) g/dL Arterial Blood Potassium (3.4-4.5) mmol/L Arterial Blood Glucose (75-99) mg/dL Crossmatch 01/26/19 01/26/19 01/26/19 Range/Units 10:59 11:13 11:13 WBC (3.8-10.6) k/uL RBC 2.36 L (4.30-5.90) m/uL Hgb 7.4 L D (13.0-17.5) gm/dL Hct 20.9 L (39.0-53.0) % RDW (11.5-15.5) % Plt Count 64 L D (150-450) k/uL Lymphocytes # (1.0-4.8) k/uL Lymphocytes # (Manual) 0.39 L (1.0-4.8) k/uL PT (9.0-12.0) sec INR (<1.2) APTT 31.7 H (22.0-30.0) sec Fibrinogen (200-500) mg/dL ABG pH (7.35-7.45) ABG pCO2 (35-45) mmHg ABG pO2 (83-108) mmHg ABG HCO3 (21-25) mmol/L ABG Total CO2 (19-24) mmol/L ABG O2 Saturation (94-97) % ABG Hematocrit (34.0-46.0) % ABG Sodium (135-146) mmol/L ABG Potassium (3.4-4.5) mmol/L ABG Ionized Calcium (4.5-5.3) mg/dL ABG Glucose (75-99) mg/dL Hemoglobin (13.0-17.5) gm/dL Potassium (3.5-5.1) mmol/L Chloride (98-107) mmol/L Carbon Dioxide (22-30) mmol/L BUN (9-20) mg/dL Creatinine (0.66-1.25) mg/dL Glucose (74-99) mg/dL POC Glucose (mg/dL) 108 H (75-99) mg/dL Calcium (8.4-10.2) mg/dL Ionized Calcium Yohan (4.5-5.3) mg/dL Magnesium (1.6-2.3) mg/dL Total Bilirubin (0.2-1.3) mg/dL ALT (21-72) U/L Alkaline Phosphatase (38-126) U/L Total Protein (6.3-8.2) g/dL Albumin (3.5-5.0) g/dL Arterial Blood Potassium (3.4-4.5) mmol/L Arterial Blood Glucose (75-99) mg/dL Crossmatch 09/07/19 09/07/19 Range/Units 11:13 11:53 WBC (3.8-10.6) k/uL RBC (4.30-5.90) m/uL Hgb (13.0-17.5) gm/dL Hct (39.0-53.0) % RDW (11.5-15.5) % Plt Count (150-450) k/uL Lymphocytes # (1.0-4.8) k/uL Lymphocytes # (Manual) (1.0-4.8) k/uL PT (9.0-12.0) sec INR (<1.2) APTT (22.0-30.0) sec Fibrinogen (200-500) mg/dL ABG pH (7.35-7.45) ABG pCO2 (35-45) mmHg ABG pO2 (83-108) mmHg ABG HCO3 (21-25) mmol/L ABG Total CO2 (19-24) mmol/L ABG O2 Saturation (94-97) % ABG Hematocrit (34.0-46.0) % ABG Sodium (135-146) mmol/L ABG Potassium (3.4-4.5) mmol/L ABG Ionized Calcium (4.5-5.3) mg/dL ABG Glucose (75-99) mg/dL Hemoglobin (13.0-17.5) gm/dL Potassium (3.5-5.1) mmol/L Chloride 110 H (98-107) mmol/L Carbon Dioxide (22-30) mmol/L BUN 23 H (9-20) mg/dL Creatinine (0.66-1.25) mg/dL Glucose 133 H (74-99) mg/dL POC Glucose (mg/dL) 121 H (75-99) mg/dL Calcium 8.1 L (8.4-10.2) mg/dL Ionized Calcium Yohan (4.5-5.3) mg/dL Magnesium (1.6-2.3) mg/dL Total Bilirubin (0.2-1.3) mg/dL ALT (21-72) U/L Alkaline Phosphatase (38-126) U/L Total Protein (6.3-8.2) g/dL Albumin (3.5-5.0) g/dL Arterial Blood Potassium (3.4-4.5) mmol/L Arterial Blood Glucose (75-99) mg/dL Crossmatch Assessment and Plan Plan: #1. Multivessel coronary artery disease, status post three-vessel coronary artery bypass grafting, with VINCENT to LAD, radial arterial graft to the RCA, and saphenous venous graft to the OM, postoperative day 1. Intraoperatively the patient had coronary sinus and pulmonary artery rupture that was patch appropriately by the surgical team. Postop the patient continued to have increased bloody output from the mediastinal chest tube. His coagulopathy was reversed. He received fresh frozen plasma, cryoprecipitate and a total of 6 units of packed RBC. Currently hemodynamically stable. He remains intubated on a mechanical ventilator. He is on Precedex for sedation. He is also on Cleviprex for blood pressure control. No active signs of bleeding. The chest tubes are all in place. The patient has an incessant rhythm of sinus. He did have a bout of atrial fibrillation yesterday. He is currently paced at the rate of 90. #2. He is hypoxic respiratory failure, expected outcome of thoracotomy and bypass surgery #3. Acute blood loss anemia, normal outcome of bypass grafting surgery. Patient did have a perforated artery artery, and perforated coronary sinus, unexpected outcomes of bypass grafting surgery, and expected outcome of surgery and the patient had adequate hemostasis with control of the bleeds in addition to another explanation that was done earlier this morning that showed no signs of bleeding. Coagulopathy was reversed. #4. Hypertension #5. Hypercholesterolemia #6. History of abdominal aortic aneurysm with surgical repair in 2017 #7. History of lung cancer involving the right lung, with surgical resection followed by chemotherapy and radiation therapy #8. History of cholecystectomy #9. Former smoker Plan Keep the patient on mechanical ventilator for now. Would like to make sure this hemodynamics remain stable and there is no signs of ongoing bleeding prior to doing any further weaning off the mechanical ventilator. I think is potentially extubated blood today as long as things remain stable. He arrived from the operating room and the second expiration showed no signs of any bleeding. His coagulopathy has been reversed. His hemoglobin is above 7 for now. The hemo dynamic parameters improved after fluid resuscitation a cardiac output also improved. The patient is producing adequate amount of urine output. His cardiac rhythm is sinus and physically and he is currently paced at the rate of 90. He is going to be started on Cleviprex for blood pressure control. Precedex for sedation. Insulin drip for blood sugar control. Will coordinate with the surgical team regarding possible weaning and extubation today at a later stage. We'll continue to follow. This is a critically care evaluation that was done more than 30 minutes. Time with Patient: Greater than 30
[2019-01-26] MEDS: amLODIPine 2.5 MG TAB PO SCH (13:07)
[2019-01-26] MEDS: HYDROcodone/APAP 5-325MG 1 EACH TAB PO PRN (13:14)
--- NOTE | 2019-01-26 13:37 | CONS ---
CONSULTATION Mr. Murphy is a 78-year-old gentleman who is seen on the postop day 1 following coronary artery bypass surgery. Patient currently is intubated. History is obtained from the chart. This patient underwent coronary artery bypass surgery yesterday with the VINCENT graft to the LAD, radial artery graft to the RCA and saphenous vein graft to the obtuse marginal branch. Intraoperatively, patient had a perforated pulmonary artery and coronary sinus requiring repair. Subsequently, the patient continued to have significant drainage from the chest tube overnight and the patient was taken back to the OR. No definite active bleeding was noted and the patient is brought back to the ICU. At present, the patient currently remains intubated. The patient's blood pressure is 80-60 mmHg. First and second heart sounds are heard. Lungs examination revealed a few scattered wheezes. Abdomen is soft. EXTREMITIES: Peripheral pulsations are not felt. This patient has a significantly low cardiac index of 1.3. Systemic vascular resistance is elevated. The patient's PA diastolic pressure is 18-90 mm of Hg. Patient's hemoglobin was 5.7 and now it is 7.5 and urine output remains borderline. Creatinine is 0.93. FINAL IMPRESSION: This patient is status post coronary artery bypass surgery with a significant chest drainage. The patient has a low cardiac index with high systemic vascular resistance. PA pressures are fairly within normal and I am not sure patient is significantly hypovolemic. However patient currently is being treated with fluids. We will repeat the echocardiogram to assess the left ventricular systolic function. If the patient's cardiac index remains low, patient may benefit from Primacor or dobutamine to decrease the systemic vascular resistance and continue the patient on volume support. MMODL / IJN: [id number] /
[2019-01-26] MEDS ORDERED: DEXTROSE 5% IN WATER 100 ML with AMIODARONE 150 MG IV ONE (13:54)
[2019-01-26 14:20] LABS: Glucose,Whole Blood 187 mg/dL (75-99)
[2019-01-26 15:02] LABS: Glucose,Whole Blood 203 mg/dL (75-99)
[2019-01-26 16:12] LABS: Glucose,Whole Blood 175 mg/dL (75-99)
[2019-01-26 17:25] LABS: Glucose,Whole Blood 143 mg/dL (75-99)
[2019-01-26] MEDS ORDERED: KETOROLAC 30 MG/ML 1 ML VIAL IVP SCH (18:00)
[2019-01-26 18:06] LABS: Glucose,Whole Blood 146 mg/dL (75-99)
[2019-01-26] MEDS: PROPOFOL 1,000 MG in EMPTY BAG 1 BAG IV SCH ×2 (18:15→21:51)
[2019-01-26 19:05] LABS: Glucose,Whole Blood 138 mg/dL (75-99)
[2019-01-26] MEDS: SENNOSIDES-DOCUSATE SODIUM 1 EACH TAB PO SCH (20:08)
[2019-01-26 20:19] LABS: Glucose,Whole Blood 121 mg/dL (75-99)
[2019-01-26 20:47] LABS: HCT 20.1 % (39.0-53.0); HGB 7.1 gm/dL (13.0-17.5); MCHC 35.4 g/dL (31.0-37.0); MCV 87.5 fL (80.0-100.0); Mean Platelet Volume 10.6; RDW 14.7 % (11.5-15.5); WBC 4.7 k/uL (3.8-10.6)
[2019-01-26 20:55] LABS: Platelet Count 54 k/uL (150-450)
[2019-01-26 20:56] LABS: Albumin 2.7 g/dL (3.5-5.0); Calcium 8.1 mg/dL (8.4-10.2); Potassium 3.5 mmol/L (3.5-5.1); Total Protein 4.3 g/dL (6.3-8.2)
[2019-01-26 21:01] LABS: Glucose,Whole Blood 125 mg/dL (75-99)
[2019-01-26] MEDS ORDERED: FUROSEMIDE 10 MG/ML 4 ML VIAL IV STA (21:16)
[2019-01-26 22:01] LABS: Glucose,Whole Blood 102 mg/dL (75-99)
[2019-01-26 22:46] LABS: Glucose,Whole Blood 114 mg/dL (75-99)
[2019-01-26] MEDS: IPRATROPIUM-ALBUTEROL 3 ML NEB INHALATION PRN (23:00)
[2019-01-26 23:58] LABS: Glucose,Whole Blood 126 mg/dL (75-99)
[2019-01-27 00:59] LABS: Glucose,Whole Blood 119 mg/dL (75-99)
[2019-01-27] MEDS: ALBUMIN HUMAN 5% 250 ML in EMPTY BAG 1 BAG IVPB PRN ×2 (01:54→09:35)
[2019-01-27 02:51] LABS: Glucose,Whole Blood 90 mg/dL (75-99)
[2019-01-27] MEDS: IPRATROPIUM-ALBUTEROL 3 ML NEB INHALATION PRN (03:00)
[2019-01-27] MEDS: AMIODARONE 300 MG in DEXTROSE 5% IN WATER 250 ML IV PRN ×2 (03:19)
[2019-01-27] MEDS: PROPOFOL 1,000 MG in EMPTY BAG 1 BAG IV SCH ×3 (03:48→22:38)
[2019-01-27 03:54] LABS: Glucose,Whole Blood 106 mg/dL (75-99)
[2019-01-27] MEDS: HYDROcodone/APAP 5-325MG 1 EACH TAB PO PRN ×3 (04:09→20:42)
[2019-01-27 04:47] LABS: Glucose,Whole Blood 139 mg/dL (75-99)
[2019-01-27 05:07] LABS: Ionized Calcium 4.7 mg/dL (4.5-5.3)
[2019-01-27 05:12] LABS: HCT 20.8 % (39.0-53.0); HGB 7.4 gm/dL (13.0-17.5); MCH 31.5 pg (25.0-35.0); MCHC 35.4 g/dL (31.0-37.0); Mean Platelet Volume 9.7; RBC 2.34 m/uL (4.30-5.90); RDW 15.9 % (11.5-15.5); WBC 4.4 k/uL (3.8-10.6)
[2019-01-27 05:15] LABS: ALT 23 U/L (21-72); AST 38 U/L (17-59); African American GFR (CKD) >90 (>60 ml/min/1.73 sqM); Alkaline Phosphatase 32 U/L (38-126); Anion Gap 7 mmol/L; Blood Urea Nitrogen 22 mg/dL (9-20); Carbon Dioxide 24 mmol/L (22-30); Chloride 107 mmol/L (98-107); Glucose 138 mg/dL (74-99); Potassium 3.8 mmol/L (3.5-5.1); Sodium 138 mmol/L (137-145); Total Bilirubin 0.8 mg/dL (0.2-1.3); Total Protein 4.6 g/dL (6.3-8.2)
[2019-01-27 05:27] LABS: ABG Base Excess 1.1 mmol/L; ABG HCO3 25 mmol/L (21-25); ABG Oxygen Saturation 97.7 % (94-97); ABG PCO2 35 mmHg (35-45); ABG PH 7.46 (7.35-7.45); ABG PO2 88 mmHg (83-108); ABG TCO2 26 mmol/L (19-24); Allen Test Performed? Yes
[2019-01-27 05:28] LABS: Glucose,Whole Blood 153 mg/dL (75-99)
[2019-01-27 05:36] LABS: Platelet Count 67 k/uL (150-450)
[2019-01-27] MEDS: POTASSIUM CHLORIDE 10 MEQ in WATER FOR INJECTION 1 100ML.BAG IVPB SCH ×2 (06:13→08:26)
[2019-01-27] MEDS: INSULIN REGULAR 100 UNIT in SODIUM CHLORIDE 0.9% 100 ML IV SCH (06:34)
[2019-01-27] MEDS: LACTATED RINGERS 1,000 ML IV SCH (06:46)
[2019-01-27 07:00] LABS: Glucose,Whole Blood 108 mg/dL (75-99)
[2019-01-27 07:09] LABS: Band Neutrophils % 24 %; Eosinophils # (M) 0.04 k/uL (0-0.7); Lymphocytes # (M) 0.57 k/uL (1.0-4.8); Monocytes # (M) 0.26 k/uL (0-1.0); Neutrophils % (M) 57 %; Nucleated Red Blood Cells 0 /100 WBC (0-0); Total Cells Counted 200
[2019-01-27 07:10] LABS: Poikilocytosis (M) Present
[2019-01-27 07:15] LABS: Large Platelets Present
[2019-01-27] MEDS: IPRATROPIUM-ALBUTEROL 3 ML NEB INHALATION SCH ×4 (07:25→18:52)
--- NOTE | 2019-01-27 07:34 | XR ---
EXAMINATION TYPE: XR chest 1V portable DATE OF EXAM: 01/27/2019 COMPARISON: 01/26/2019 HISTORY: Post cardiac surgery follow-up exam. TECHNIQUE: Single frontal view of the chest is obtained. FINDINGS: There remains a right [place] catheter, endotracheal tube, enteric tube, mediastinal aide ins, and left thoracostomy tube. Mediastinum also contains mediastinal clips and figure of 8 sternoto my wires. No sizable left pneumothorax remains. There is diffuse osseous demineralization seen. Multi focal left-sided linear atelectasis. Right lung remains clear. IMPRESSION: Multifocal linear left-sided atelectasis. Stable lines and tubes.
[2019-01-27 08:06] LABS: Glucose,Whole Blood 124 mg/dL (75-99)
[2019-01-27] MEDS: amLODIPine 2.5 MG TAB PO SCH (08:24)
[2019-01-27] MEDS: ATORVASTATIN 40 MG TAB PO SCH (08:24)
[2019-01-27] MEDS: ASPIRIN 81 MG PO SCH (08:24)
[2019-01-27] MEDS: FONDAPARINUX 2.5 MG/0.5 ML SYRINGE SQ SCH (08:25)
[2019-01-27] MEDS: PANTOPRAZOLE 40 MG/10 ML VIAL IVP SCH (08:25)
[2019-01-27] MEDS: AMIODARONE 200 MG TAB PO SCH ×2 (08:37→20:42)
[2019-01-27] MEDS: METOPROLOL TARTRATE 25 MG TAB PO SCH ×2 (08:38→21:59)
[2019-01-27] MEDS ORDERED: METOPROLOL TARTRATE 12.5 MG TAB PO SCH (09:00)
[2019-01-27 09:07] LABS: Glucose,Whole Blood 130 mg/dL (75-99)
--- NOTE | 2019-01-27 09:52 | P.CONS ---
History of Present Illness - Reason for Consult Consult date: 01/26/19 Medical management Requesting physician: Deep Franco - Chief Complaint Triple bypass surgery - History of Present Illness 78-year-old white male patient with past medical history significant for hypertension, hypercholesterolemia, history of sleep apnea, abdominal aortic an eurysm with surgical repair in 2017, history of right-sided lung cancer status post resection in 2017 followed by chemotherapy and radiation therapy, past history of tobacco use currently in remission, moderate alcohol use, was diagnosed with multivessel coronary artery disease and moderate mitral r egurgitation and was referred to cardiothoracic surgery for intervention. He had a heart catheterization on 11/02/2018 which revealed a 60% lesion in the left main artery, occlusion in the midportion of the left circumflex artery, mild disease in the LAD, there was a 99% critical lesion in the mid right coronary artery. Echocardiogram revealed ejection fraction of 55%, there was moderate mitral regurg with mild mitral annular calcification. Patient underwent three-vessel bypass surgery on 01/25/2019 and transverse to ICU postoperatively for management of mechanical ventilator Internal medicine is consulted for management of hypertension and hyperlipidemia Review of Systems ROS unobtainable: due to endotracheal tube Past Medical History Past Medical History: Cancer, Hyperlipidemia, Hypertension, Memory Impairment Additional Past Medical History / Comment(s): hx. aneurysm, lung cancer 15 yrs. ago-chemo & surgery History of Any Multi-Drug Resistant Organisms: None Reported Past Surgical History: Heart Catheterization, Orthopedic Surgery Additional Past Surgical History / Comment(s): aneurysm repair about 10 yrs. ago, right lung resection 15 yrs. ago, arthroscopy knee, finger surg. Past Anesthesia/Blood Transfusion Reactions: No Reported Reaction Smoking Status: Former smoker - Past Family History Mother Family Medical History: No Reported History Medications and Allergies Home Medications Medication Instructions Recorded Confirmed Type Aspirin [Adult Low Dose Aspirin EC] 81 mg PO DAILY@139911/01/18 01/25/19 History Atorvastatin [Lipitor] 40 mg PO DAILY@139911/01/18 01/25/19 History amLODIPine [Norvasc] 5 mg PO DAILY@139911/01/18 01/25/19 History Metoprolol Succinate [Toprol XL] 25 mg PO DAILY@1400 12/12/18 01/25/19 History Allergies Allergy/AdvReac Type Severity Reaction Status Date / Time No Known Allergies Allergy Verified 01/25/19 14:07 Physical Exam Vitals: Vital Signs Temp Pulse Resp BP Pulse Ox 01/26/19 06:38 36.2 F L 89 21 110/57 01/26/19 06:30 94 26 H 96 01/26/19 06:00 87 22 97 01/26/19 05:57 36.3 F L 90 20 106/56 94 L 01/26/19 05:55 97.3 F L 90 20 123/63 94 L 01/26/19 05:50 97.3 F L 90 21 122/62 94 L 01/26/19 05:49 97.3 F L 90 20 125/61 95 01/26/19 05:42 36.3 F L 90 20 124/67 95 01/26/19 05:40 97.3 F L 89 20 123/64 95 01/26/19 05:36 97.3 F L 89 20 124/67 01/26/19 05:32 97.3 F L 87 H 124/65 95 01/26/19 05:30 89 20 96 01/26/19 05:20 97.3 F L 89 20 123/63 01/26/19 05:18 97.3 F L 89 20 96/68 01/26/19 05:15 97.3 F L 89 20 127/71 01/26/19 05:04 36.4 F L 89 20 130/73 01/26/19 05:01 97.5 F L 89 20 123/70 01/26/19 05:00 97.5 F L 87 20 131/73 98 01/26/19 04:53 97.5 F L 89 21 126/70 01/26/19 04:46 36.4 F L 89 20 123/69 01/26/19 04:43 36.4 F L 89 20 131/73 01/26/19 04:40 97.5 F L 89 21 115/69 01/26/19 04:36 97.5 F L 101 H 20 127/66 01/26/19 04:33 97.5 F L 91 20 122/68 01/26/19 04:30 89 16 96/68 92 L 01/26/19 04:28 97.5 F L 90 20 123/71 01/26/19 04:16 36.6 F L 87 20 97/58 01/26/19 04:06 36.6 F L 89 23 73/52 01/26/19 04:00 84 20 89/54 01/26/19 03:57 98.1 F 86 22 74/46 01/26/19 03:47 98.1 F 89 20 88/53 01/26/19 03:30 94 20 89/54 100 01/26/19 03:00 89 20 109/72 100 01/26/19 02:30 89 20 109/72 100 01/26/19 02:00 89 21 109/72 90 L 01/26/19 01:30 107 H 15 88/62 90 L 01/26/19 01:00 89 20 105/69 99 01/26/19 00:30 89 18 83/54 96 01/26/19 00:00 98.2 F 74 34 H 64/48 100 01/25/19 23:30 118 H 28 H 116/70 89 L 01/25/19 23:17 135 H 01/25/19 23:10 80 01/25/19 23:00 80 29 H 116/70 94 L 01/25/19 22:30 80 19 116/70 94 L 01/25/19 22:27 77 20 116/70 93 L 01/25/19 22:00 80 27 H 99 01/25/19 21:30 80 20 109/83 97 01/25/19 21:00 80 27 H 116/70 94 L 01/25/19 20:52 98.4 F 80 22 120/55 01/25/19 20:50 98.2 F 80 20 112/52 01/25/19 20:45 80 20 93 L 01/25/19 20:30 77 20 92 L 01/25/19 20:21 97.9 F 80 20 103/49 01/25/19 20:15 80 20 92 L 01/25/19 20:11 36.5 F L 80 20 70/42 01/25/19 20:00 97.3 F L 80 20 90 L 01/25/19 19:45 80 20 88 L 01/25/19 19:40 80 01/25/19 19:30 80 20 89 L 01/25/19 19:15 80 20 01/25/19 19:07 35.9 F L 80 20 97/57 01/25/19 19:00 36.0 F L 80 20 92/62 90 L 01/25/19 18:58 36.0 F L 80 20 103/55 01/25/19 18:57 36.0 F L 80 20 98/57 01/25/19 18:51 36.0 F L 80 20 97/56 01/25/19 18:45 80 20 92/62 93 L 01/25/19 18:43 35.9 F L 80 20 98/57 01/25/19 18:32 35.8 F L 80 20 93/57 01/25/19 18:30 35.8 F L 80 20 92/62 01/25/19 18:20 80 20 01/25/19 18:19 35.8 F L 80 20 108/66 01/25/19 18:14 96.4 F L 80 108/65 01/25/19 18:10 80 20 99 01/25/19 18:06 35.7 F L 80 20 103/64 01/25/19 18:00 80 20 92/62 85 L 01/25/19 17:50 80 20 01/25/19 17:43 36.1 F L 80 20 68/44 94 L 01/25/19 17:40 80 16 01/25/19 17:30 77 4 L 01/25/19 17:20 72 27 H Intake and Output 01/25/19 01/26/19 01/26/19 22:59 06:59 14:59 Intake Total 2043.4 3055.435 701 Output Total 1969 2490 50 Balance 74.4 565.435 651 Intake: IV 534 592 81 .9NS Pressure Bag 54 72 9 Lactated Ringers 1,000 ml 300 300 50 @ 50 mls/hr IV .Q20H [facility] Rx#:[id number] cardiac output 130 170 20 ceFAZolin 2 gm In Sodium 50 50 Chloride 0.9% 50 ml @ 100 mls/hr IVPB Q8HR [facility] Rx# :[id number] Intake, IV Titration 0.4 255.435 Amount Dexmedetomidine/0.9% NaCl 10.705 (Pmx) 400 mcg In Empty Bag 1 bag @ Titrate IV . Q0M [facility]AD Rx#:[id number] Insulin Regular 100 unit 0.4 11.908 In Sodium Chloride 0.9% 100 ml @ Per Protocol IV .Q0M [facility] Rx#:[id number] Norepinephrine 4 mg In 232.822 Sodium Chloride 0.9% 250 ml @ 0.04 MCG/KG/MIN 11. 06 mls/hr IV .[id number] [facility] Rx#:[id number] Blood Product 1359 2208 620 Ffp 24 Cpd Unit 314 [id number] Ffp 24 Cpd Unit 317 [id number] Ffp 24 Cpda Unit 214 [id number] Ffp 24 Cpda Unit 267 [id number] Platelet Irr Pheresis 307 Acda1 Unit [id number] Platelet Irr Pheresis 206 Acda1 Unit [id number] Pooled Cryoprecipitate 105 Unit [id number] Pooled Cryoprecipitate 86 Unit [id number] Pooled Cryoprecipitate 98 Unit [id number] Pooled Cryoprecipitate 98 Unit [id number] Pooled Cryoprecipitate 104 Unit [id number] Pooled Cryoprecipitate 101 Unit [id number] Pooled Cryoprecipitate 110 Unit [id number] Rc As-1 Unit 310 [id number] Rc As-1 Unit 310 [id number] Rc As-1 Unit 310 [id number] Rc As-1 Unit 310 [id number] Rc Irr As1 Unit 0 310 [id number] Rc Pheresis As-3 Unit 310 [id number] Other 150 Rc As-1 Unit 150 [id number] Output: Chest Tube Drainage 1164 2020 Left Pleural 124 290 Mediastinal Chest Tube 1040 1730 Drainage 120 200 Left arm 30 Right Lower Calf 90 200 Urine 685 270 50 Other: Voiding Method Indwelling Catheter Indwelling Catheter ABP, PAP, CO, CI - Last 8 Hours Arterial Blood Pressure 100/48 Arterial Blood Pressure 131/65 Arterial Blood Pressure 112/57 Arterial Blood Pressure 119/65 Arterial Blood Pressure 127/70 Arterial Blood Pressure 110/66 Arterial Blood Pressure 99/56 Arterial Blood Pressure 78/49 Pulmonary Artery Pressure 33/17 Pulmonary Artery Pressure 34/20 Pulmonary Artery Pressure 38/23 Pulmonary Artery Pressure 36/22 Pulmonary Artery Pressure 37/23 Pulmonary Artery Pressure 29/17 Pulmonary Artery Pressure 28/17 Cardiac Output 4.8 Cardiac Output 4 Cardiac Index 2.5 Cardiac Index 2.1 GENERAL EXAM: 78-year-old white male patient intubated, sedated on mechanical ventilator in no apparent distress. HEAD: Normocephalic/atraumatic. EYES: Normal reaction of pupils, equal size. Conjunctiva pink, sclera white. NOSE: Clear with pink turbinates. THROAT: No erythema or exudates. NECK: No masses, no JVD, no thyroid enlargement, no adenopathy. CHEST: No chest wall deformity. Symmetrical expansion. Midsternal incision is clean dry and intact, 2 mediastinal one right pleural chest tube. Atrial ventricular epicardial wires connected to the external pacemaker and patient is being paced at a AAI mode at a rate of 80 BPM LUNGS: Equal air entry with no crackles, wheeze, rhonchi or dullness. CVS: Regular rate and rhythm, normal S1 and S2, no gallops, no murmurs, no rubs ABDOMEN: Soft, nontender. No hepatosplenomegaly, normal bowel sounds, no guarding or rigidity. EXTREMITIES: No clubbing, no edema, no cyanosis, 2+ pulses and upper and lower extremities. Lower extremities are kelton wrapped and SCDs are present MUSCULOSKELETAL: Muscle strength and tone normal. Results CBC & Chem 7: 01/27/19 04:25 01/27/19 04:25 Labs: Abnormal Lab Results - Last 24 Hours (Table) 01/17/19 01/25/19 01/25/19 Range/Units 09:00 08:40 10:05 WBC (3.8-10.6) k/uL RBC (4.30-5.90) m/uL Hgb (13.0-17.5) gm/dL Hct (39.0-53.0) % RDW (11.5-15.5) % Plt Count (150-450) k/uL Lymphocytes # (1.0-4.8) k/uL PT (9.0-12.0) sec INR (<1.2) APTT (22.0-30.0) sec Fibrinogen (200-500) mg/dL ABG pH 7.18 L* (7.35-7.45) ABG pCO2 67 H (35-45) mmHg ABG pO2 >420 H 257 H (83-108) mmHg ABG HCO3 (21-25) mmol/L ABG Total CO2 26 H 27 H (19-24) mmol/L ABG O2 Saturation 100.0 H 99.6 H (94-97) % ABG Hematocrit (34.0-46.0) % ABG Sodium (135-146) mmol/L ABG Potassium (3.4-4.5) mmol/L ABG Ionized Calcium (4.5-5.3) mg/dL ABG Glucose 119 H 137 H (75-99) mg/dL Hemoglobin 12.2 L (13.0-17.5) gm/dL Potassium (3.5-5.1) mmol/L Chloride (98-107) mmol/L Carbon Dioxide (22-30) mmol/L BUN (9-20) mg/dL Creatinine (0.66-1.25) mg/dL Glucose (74-99) mg/dL POC Glucose (mg/dL) (75-99) mg/dL Calcium (8.4-10.2) mg/dL Ionized Calcium Yohan (4.5-5.3) mg/dL Magnesium (1.6-2.3) mg/dL Total Bilirubin (0.2-1.3) mg/dL ALT (21-72) U/L Alkaline Phosphatase (38-126) U/L Total Protein (6.3-8.2) g/dL Albumin (3.5-5.0) g/dL Arterial Blood Potassium (3.4-4.5) mmol/L Arterial Blood Glucose 119 H 137 H (75-99) mg/dL Crossmatch See Detail 01/25/19 01/25/19 01/25/19 Range/Units 10:52 11:16 11:47 WBC (3.8-10.6) k/uL RBC (4.30-5.90) m/uL Hgb (13.0-17.5) gm/dL Hct (39.0-53.0) % RDW (11.5-15.5) % Plt Count (150-450) k/uL Lymphocytes # (1.0-4.8) k/uL PT (9.0-12.0) sec INR (<1.2) APTT (22.0-30.0) sec Fibrinogen (200-500) mg/dL ABG pH 7.30 L 7.30 L (7.35-7.45) ABG pCO2 47 H (35-45) mmHg ABG pO2 208 H 403 H 333 H (83-108) mmHg ABG HCO3 (21-25) mmol/L ABG Total CO2 26 H (19-24) mmol/L ABG O2 Saturation 99.7 H 100.0 H 100.0 H (94-97) % ABG Hematocrit 26 L 25 L (34.0-46.0) % ABG Sodium 132 L 132 L (135-146) mmol/L ABG Potassium 5.6 H (3.4-4.5) mmol/L ABG Ionized Calcium 4.0 L 4.0 L (4.5-5.3) mg/dL ABG Glucose 151 H 142 H 258 H (75-99) mg/dL Hemoglobin 12.1 L 8.3 L 8.0 L (13.0-17.5) gm/dL Potassium (3.5-5.1) mmol/L Chloride (98-107) mmol/L Carbon Dioxide (22-30) mmol/L BUN (9-20) mg/dL Creatinine (0.66-1.25) mg/dL Glucose (74-99) mg/dL POC Glucose (mg/dL) (75-99) mg/dL Calcium (8.4-10.2) mg/dL Ionized Calcium Yohan (4.5-5.3) mg/dL Magnesium (1.6-2.3) mg/dL Total Bilirubin (0.2-1.3) mg/dL ALT (21-72) U/L Alkaline Phosphatase (38-126) U/L Total Protein (6.3-8.2) g/dL Albumin (3.5-5.0) g/dL Arterial Blood Potassium 5.6 H (3.4-4.5) mmol/L Arterial Blood Glucose 151 H 142 H 258 H (75-99) mg/dL Crossmatch 01/25/19 01/25/19 01/25/19 Range/Units 12:57 17:19 17:21 WBC (3.8-10.6) k/uL RBC 2.56 L (4.30-5.90) m/uL Hgb 8.3 L D (13.0-17.5) gm/dL Hct 23.6 L (39.0-53.0) % RDW (11.5-15.5) % Plt Count 46 L D (150-450) k/uL Lymphocytes # 0.3 L (1.0-4.8) k/uL PT (9.0-12.0) sec INR (<1.2) APTT (22.0-30.0) sec Fibrinogen (200-500) mg/dL ABG pH (7.35-7.45) ABG pCO2 (35-45) mmHg ABG pO2 280 H (83-108) mmHg ABG HCO3 (21-25) mmol/L ABG Total CO2 26 H (19-24) mmol/L ABG O2 Saturation 100.0 H (94-97) % ABG Hematocrit 26 L (34.0-46.0) % ABG Sodium 133 L (135-146) mmol/L ABG Potassium 5.3 H (3.4-4.5) mmol/L ABG Ionized Calcium 4.1 L (4.5-5.3) mg/dL ABG Glucose 250 H (75-99) mg/dL Hemoglobin 8.5 L (13.0-17.5) gm/dL Potassium (3.5-5.1) mmol/L Chloride (98-107) mmol/L Carbon Dioxide (22-30) mmol/L BUN (9-20) mg/dL Creatinine (0.66-1.25) mg/dL Glucose (74-99) mg/dL POC Glucose (mg/dL) 116 H (75-99) mg/dL Calcium (8.4-10.2) mg/dL Ionized Calcium Yohan (4.5-5.3) mg/dL Magnesium (1.6-2.3) mg/dL Total Bilirubin (0.2-1.3) mg/dL ALT (21-72) U/L Alkaline Phosphatase (38-126) U/L Total Protein (6.3-8.2) g/dL Albumin (3.5-5.0) g/dL Arterial Blood Potassium 5.3 H (3.4-4.5) mmol/L Arterial Blood Glucose 250 H (75-99) mg/dL Crossmatch 01/25/19 01/25/19 01/25/19 Range/Units 17:21 17:21 17:21 WBC (3.8-10.6) k/uL RBC (4.30-5.90) m/uL Hgb (13.0-17.5) gm/dL Hct (39.0-53.0) % RDW (11.5-15.5) % Plt Count (150-450) k/uL Lymphocytes # (1.0-4.8) k/uL PT 15.4 H (9.0-12.0) sec INR 1.5 H (<1.2) APTT 44.7 H (22.0-30.0) sec Fibrinogen 110 L (200-500) mg/dL ABG pH (7.35-7.45) ABG pCO2 (35-45) mmHg ABG pO2 (83-108) mmHg ABG HCO3 (21-25) mmol/L ABG Total CO2 (19-24) mmol/L ABG O2 Saturation (94-97) % ABG Hematocrit (34.0-46.0) % ABG Sodium (135-146) mmol/L ABG Potassium (3.4-4.5) mmol/L ABG Ionized Calcium (4.5-5.3) mg/dL ABG Glucose (75-99) mg/dL Hemoglobin (13.0-17.5) gm/dL Potassium (3.5-5.1) mmol/L Chloride 108 H (98-107) mmol/L Carbon Dioxide (22-30) mmol/L BUN 23 H (9-20) mg/dL Creatinine (0.66-1.25) mg/dL Glucose 108 H (74-99) mg/dL POC Glucose (mg/dL) (75-99) mg/dL Calcium 7.9 L (8.4-10.2) mg/dL Ionized Calcium Yohan (4.5-5.3) mg/dL Magnesium 2.5 H (1.6-2.3) mg/dL Total Bilirubin 1.6 H (0.2-1.3) mg/dL ALT (21-72) U/L Alkaline Phosphatase 24 L (38-126) U/L Total Protein 3.8 L (6.3-8.2) g/dL Albumin 2.6 L (3.5-5.0) g/dL Arterial Blood Potassium (3.4-4.5) mmol/L Arterial Blood Glucose (75-99) mg/dL Crossmatch 09/11/0701/25/19 01/25/19 Range/Units 17:31 18:21 19:55 WBC (3.8-10.6) k/uL RBC (4.30-5.90) m/uL Hgb (13.0-17.5) gm/dL Hct (39.0-53.0) % RDW (11.5-15.5) % Plt Count (150-450) k/uL Lymphocytes # (1.0-4.8) k/uL PT (9.0-12.0) sec INR (<1.2) APTT (22.0-30.0) sec Fibrinogen (200-500) mg/dL ABG pH 7.34 L (7.35-7.45) ABG pCO2 49 H (35-45) mmHg ABG pO2 >400 H (83-108) mmHg ABG HCO3 26 H (21-25) mmol/L ABG Total CO2 28 H (19-24) mmol/L ABG O2 Saturation 99.8 H (94-97) % ABG Hematocrit (34.0-46.0) % ABG Sodium (135-146) mmol/L ABG Potassium (3.4-4.5) mmol/L ABG Ionized Calcium (4.5-5.3) mg/dL ABG Glucose (75-99) mg/dL Hemoglobin (13.0-17.5) gm/dL Potassium (3.5-5.1) mmol/L Chloride (98-107) mmol/L Carbon Dioxide (22-30) mmol/L BUN (9-20) mg/dL Creatinine (0.66-1.25) mg/dL Glucose (74-99) mg/dL POC Glucose (mg/dL) 106 H 189 H (75-99) mg/dL Calcium (8.4-10.2) mg/dL Ionized Calcium Yohan (4.5-5.3) mg/dL Magnesium (1.6-2.3) mg/dL Total Bilirubin (0.2-1.3) mg/dL ALT (21-72) U/L Alkaline Phosphatase (38-126) U/L Total Protein (6.3-8.2) g/dL Albumin (3.5-5.0) g/dL Arterial Blood Potassium (3.4-4.5) mmol/L Arterial Blood Glucose (75-99) mg/dL Crossmatch 01/25/19 01/25/19 01/25/19 Range/Units 19:57 19:57 21:00 WBC 3.1 L (3.8-10.6) k/uL RBC 1.61 L (4.30-5.90) m/uL Hgb 5.2 L* D (13.0-17.5) gm/dL Hct 14.7 L* (39.0-53.0) % RDW (11.5-15.5) % Plt Count 45 L (150-450) k/uL Lymphocytes # 0.1 L (1.0-4.8) k/uL PT 13.0 H (9.0-12.0) sec INR 1.3 H (<1.2) APTT 35.9 H (22.0-30.0) sec Fibrinogen (200-500) mg/dL ABG pH (7.35-7.45) ABG pCO2 (35-45) mmHg ABG pO2 (83-108) mmHg ABG HCO3 (21-25) mmol/L ABG Total CO2 (19-24) mmol/L ABG O2 Saturation (94-97) % ABG Hematocrit (34.0-46.0) % ABG Sodium (135-146) mmol/L ABG Potassium (3.4-4.5) mmol/L ABG Ionized Calcium (4.5-5.3) mg/dL ABG Glucose (75-99) mg/dL Hemoglobin (13.0-17.5) gm/dL Potassium (3.5-5.1) mmol/L Chloride (98-107) mmol/L Carbon Dioxide (22-30) mmol/L BUN (9-20) mg/dL Creatinine (0.66-1.25) mg/dL Glucose (74-99) mg/dL POC Glucose (mg/dL) 176 H (75-99) mg/dL Calcium (8.4-10.2) mg/dL Ionized Calcium Yohan (4.5-5.3) mg/dL Magnesium (1.6-2.3) mg/dL Total Bilirubin (0.2-1.3) mg/dL ALT (21-72) U/L Alkaline Phosphatase (38-126) U/L Total Protein (6.3-8.2) g/dL Albumin (3.5-5.0) g/dL Arterial Blood Potassium (3.4-4.5) mmol/L Arterial Blood Glucose (75-99) mg/dL Crossmatch 01/25/19 01/25/19 01/25/19 Range/Units 21:36 21:58 23:01 WBC (3.8-10.6) k/uL RBC (4.30-5.90) m/uL Hgb (13.0-17.5) gm/dL Hct (39.0-53.0) % RDW (11.5-15.5) % Plt Count (150-450) k/uL Lymphocytes # (1.0-4.8) k/uL PT (9.0-12.0) sec INR (<1.2) APTT (22.0-30.0) sec Fibrinogen (200-500) mg/dL ABG pH (7.35-7.45) ABG pCO2 (35-45) mmHg ABG pO2 169 H (83-108) mmHg ABG HCO3 26 H (21-25) mmol/L ABG Total CO2 27 H (19-24) mmol/L ABG O2 Saturation 99.4 H (94-97) % ABG Hematocrit (34.0-46.0) % ABG Sodium (135-146) mmol/L ABG Potassium (3.4-4.5) mmol/L ABG Ionized Calcium (4.5-5.3) mg/dL ABG Glucose (75-99) mg/dL Hemoglobin (13.0-17.5) gm/dL Potassium (3.5-5.1) mmol/L Chloride (98-107) mmol/L Carbon Dioxide (22-30) mmol/L BUN (9-20) mg/dL Creatinine (0.66-1.25) mg/dL Glucose (74-99) mg/dL POC Glucose (mg/dL) 167 H 148 H (75-99) mg/dL Calcium (8.4-10.2) mg/dL Ionized Calcium Yohan (4.5-5.3) mg/dL Magnesium (1.6-2.3) mg/dL Total Bilirubin (0.2-1.3) mg/dL ALT (21-72) U/L Alkaline Phosphatase (38-126) U/L Total Protein (6.3-8.2) g/dL Albumin (3.5-5.0) g/dL Arterial Blood Potassium (3.4-4.5) mmol/L Arterial Blood Glucose (75-99) mg/dL Crossmatch 01/25/19 01/25/19 01/25/19 Range/Units 23:43 23:50 23:50 WBC (3.8-10.6) k/uL RBC 2.36 L (4.30-5.90) m/uL Hgb 7.2 L D (13.0-17.5) gm/dL Hct 21.5 L (39.0-53.0) % RDW (11.5-15.5) % Plt Count 66 L (150-450) k/uL Lymphocytes # 0.4 L (1.0-4.8) k/uL PT (9.0-12.0) sec INR 1.2 H (<1.2) APTT 47.6 H (22.0-30.0) sec Fibrinogen (200-500) mg/dL ABG pH (7.35-7.45) ABG pCO2 (35-45) mmHg ABG pO2 (83-108) mmHg ABG HCO3 (21-25) mmol/L ABG Total CO2 (19-24) mmol/L ABG O2 Saturation (94-97) % ABG Hematocrit (34.0-46.0) % ABG Sodium (135-146) mmol/L ABG Potassium (3.4-4.5) mmol/L ABG Ionized Calcium (4.5-5.3) mg/dL ABG Glucose (75-99) mg/dL Hemoglobin (13.0-17.5) gm/dL Potassium (3.5-5.1) mmol/L Chloride (98-107) mmol/L Carbon Dioxide (22-30) mmol/L BUN (9-20) mg/dL Creatinine (0.66-1.25) mg/dL Glucose (74-99) mg/dL POC Glucose (mg/dL) 147 H (75-99) mg/dL Calcium (8.4-10.2) mg/dL Ionized Calcium Yohan (4.5-5.3) mg/dL Magnesium (1.6-2.3) mg/dL Total Bilirubin (0.2-1.3) mg/dL ALT (21-72) U/L Alkaline Phosphatase (38-126) U/L Total Protein (6.3-8.2) g/dL Albumin (3.5-5.0) g/dL Arterial Blood Potassium (3.4-4.5) mmol/L Arterial Blood Glucose (75-99) mg/dL Crossmatch 01/25/19 01/26/19 01/26/19 Range/Units 23:50 00:24 01:25 WBC (3.8-10.6) k/uL RBC (4.30-5.90) m/uL Hgb (13.0-17.5) gm/dL Hct (39.0-53.0) % RDW (11.5-15.5) % Plt Count (150-450) k/uL Lymphocytes # (1.0-4.8) k/uL PT (9.0-12.0) sec INR (<1.2) APTT (22.0-30.0) sec Fibrinogen (200-500) mg/dL ABG pH (7.35-7.45) ABG pCO2 (35-45) mmHg ABG pO2 166 H (83-108) mmHg ABG HCO3 (21-25) mmol/L ABG Total CO2 25 H (19-24) mmol/L ABG O2 Saturation 99.0 H (94-97) % ABG Hematocrit (34.0-46.0) % ABG Sodium (135-146) mmol/L ABG Potassium (3.4-4.5) mmol/L ABG Ionized Calcium (4.5-5.3) mg/dL ABG Glucose (75-99) mg/dL Hemoglobin (13.0-17.5) gm/dL Potassium (3.5-5.1) mmol/L Chloride 108 H (98-107) mmol/L Carbon Dioxide (22-30) mmol/L BUN 22 H (9-20) mg/dL Creatinine (0.66-1.25) mg/dL Glucose 134 H (74-99) mg/dL POC Glucose (mg/dL) 164 H (75-99) mg/dL Calcium 7.6 L (8.4-10.2) mg/dL Ionized Calcium Yohan (4.5-5.3) mg/dL Magnesium (1.6-2.3) mg/dL Total Bilirubin 1.7 H (0.2-1.3) mg/dL ALT (21-72) U/L Alkaline Phosphatase 27 L (38-126) U/L Total Protein 4.1 L (6.3-8.2) g/dL Albumin 2.7 L (3.5-5.0) g/dL Arterial Blood Potassium (3.4-4.5) mmol/L Arterial Blood Glucose (75-99) mg/dL Crossmatch 01/26/19 01/26/19 01/26/19 Range/Units 01:59 02:58 03:00 WBC (3.8-10.6) k/uL RBC 1.86 L (4.30-5.90) m/uL Hgb 6.0 L* (13.0-17.5) gm/dL Hct 16.5 L* (39.0-53.0) % RDW (11.5-15.5) % Plt Count 68 L (150-450) k/uL Lymphocytes # 0.2 L (1.0-4.8) k/uL PT (9.0-12.0) sec INR (<1.2) APTT (22.0-30.0) sec Fibrinogen (200-500) mg/dL ABG pH (7.35-7.45) ABG pCO2 (35-45) mmHg ABG pO2 (83-108) mmHg ABG HCO3 (21-25) mmol/L ABG Total CO2 (19-24) mmol/L ABG O2 Saturation (94-97) % ABG Hematocrit (34.0-46.0) % ABG Sodium (135-146) mmol/L ABG Potassium (3.4-4.5) mmol/L ABG Ionized Calcium (4.5-5.3) mg/dL ABG Glucose (75-99) mg/dL Hemoglobin (13.0-17.5) gm/dL Potassium (3.5-5.1) mmol/L Chloride (98-107) mmol/L Carbon Dioxide (22-30) mmol/L BUN (9-20) mg/dL Creatinine (0.66-1.25) mg/dL Glucose (74-99) mg/dL POC Glucose (mg/dL) 160 H 168 H (75-99) mg/dL Calcium (8.4-10.2) mg/dL Ionized Calcium Yohan (4.5-5.3) mg/dL Magnesium (1.6-2.3) mg/dL Total Bilirubin (0.2-1.3) mg/dL ALT (21-72) U/L Alkaline Phosphatase (38-126) U/L Total Protein (6.3-8.2) g/dL Albumin (3.5-5.0) g/dL Arterial Blood Potassium (3.4-4.5) mmol/L Arterial Blood Glucose (75-99) mg/dL Crossmatch 01/26/19 01/26/19 01/26/19 Range/Units 03:00 03:00 05:12 WBC (3.8-10.6) k/uL RBC (4.30-5.90) m/uL Hgb (13.0-17.5) gm/dL Hct (39.0-53.0) % RDW (11.5-15.5) % Plt Count (150-450) k/uL Lymphocytes # (1.0-4.8) k/uL PT 12.6 H (9.0-12.0) sec INR 1.2 H (<1.2) APTT 57.6 H (22.0-30.0) sec Fibrinogen 180 L (200-500) mg/dL ABG pH (7.35-7.45) ABG pCO2 (35-45) mmHg ABG pO2 (83-108) mmHg ABG HCO3 (21-25) mmol/L ABG Total CO2 (19-24) mmol/L ABG O2 Saturation (94-97) % ABG Hematocrit (34.0-46.0) % ABG Sodium (135-146) mmol/L ABG Potassium (3.4-4.5) mmol/L ABG Ionized Calcium (4.5-5.3) mg/dL ABG Glucose (75-99) mg/dL Hemoglobin (13.0-17.5) gm/dL Potassium (3.5-5.1) mmol/L Chloride 108 H (98-107) mmol/L Carbon Dioxide (22-30) mmol/L BUN 24 H (9-20) mg/dL Creatinine (0.66-1.25) mg/dL Glucose 146 H (74-99) mg/dL POC Glucose (mg/dL) 156 H (75-99) mg/dL Calcium 7.5 L (8.4-10.2) mg/dL Ionized Calcium Yohan (4.5-5.3) mg/dL Magnesium (1.6-2.3) mg/dL Total Bilirubin 1.5 H (0.2-1.3) mg/dL ALT (21-72) U/L Alkaline Phosphatase <20 L (38-126) U/L Total Protein 4.0 L (6.3-8.2) g/dL Albumin 2.7 L (3.5-5.0) g/dL Arterial Blood Potassium (3.4-4.5) mmol/L Arterial Blood Glucose (75-99) mg/dL Crossmatch 01/26/19 01/26/19 01/26/19 Range/Units 05:18 06:51 06:51 WBC (3.8-10.6) k/uL RBC 1.99 L (4.30-5.90) m/uL Hgb 6.3 L* (13.0-17.5) gm/dL Hct 17.3 L* (39.0-53.0) % RDW 15.7 H (11.5-15.5) % Plt Count 58 L (150-450) k/uL Lymphocytes # (1.0-4.8) k/uL PT (9.0-12.0) sec INR (<1.2) APTT 30.4 H (22.0-30.0) sec Fibrinogen (200-500) mg/dL ABG pH (7.35-7.45) ABG pCO2 (35-45) mmHg ABG pO2 126 H (83-108) mmHg ABG HCO3 (21-25) mmol/L ABG Total CO2 25 H (19-24) mmol/L ABG O2 Saturation 99.1 H (94-97) % ABG Hematocrit (34.0-46.0) % ABG Sodium (135-146) mmol/L ABG Potassium (3.4-4.5) mmol/L ABG Ionized Calcium (4.5-5.3) mg/dL ABG Glucose (75-99) mg/dL Hemoglobin (13.0-17.5) gm/dL Potassium (3.5-5.1) mmol/L Chloride (98-107) mmol/L Carbon Dioxide (22-30) mmol/L BUN (9-20) mg/dL Creatinine (0.66-1.25) mg/dL Glucose (74-99) mg/dL POC Glucose (mg/dL) (75-99) mg/dL Calcium (8.4-10.2) mg/dL Ionized Calcium Yohan (4.5-5.3) mg/dL Magnesium (1.6-2.3) mg/dL Total Bilirubin (0.2-1.3) mg/dL ALT (21-72) U/L Alkaline Phosphatase (38-126) U/L Total Protein (6.3-8.2) g/dL Albumin (3.5-5.0) g/dL Arterial Blood Potassium (3.4-4.5) mmol/L Arterial Blood Glucose (75-99) mg/dL Crossmatch 01/26/19 01/26/19 01/26/19 Range/Units 06:54 07:44 09:45 WBC (3.8-10.6) k/uL RBC (4.30-5.90) m/uL Hgb (13.0-17.5) gm/dL Hct (39.0-53.0) % RDW (11.5-15.5) % Plt Count (150-450) k/uL Lymphocytes # (1.0-4.8) k/uL PT (9.0-12.0) sec INR (<1.2) APTT (22.0-30.0) sec Fibrinogen (200-500) mg/dL ABG pH (7.35-7.45) ABG pCO2 (35-45) mmHg ABG pO2 396 H (83-108) mmHg ABG HCO3 27 H (21-25) mmol/L ABG Total CO2 28 H (19-24) mmol/L ABG O2 Saturation 100.0 H (94-97) % ABG Hematocrit 19 L* (34.0-46.0) % ABG Sodium (135-146) mmol/L ABG Potassium (3.4-4.5) mmol/L ABG Ionized Calcium 4.3 L (4.5-5.3) mg/dL ABG Glucose 141 H (75-99) mg/dL Hemoglobin 6.2 L* (13.0-17.5) gm/dL Potassium (3.5-5.1) mmol/L Chloride (98-107) mmol/L Carbon Dioxide (22-30) mmol/L BUN (9-20) mg/dL Creatinine (0.66-1.25) mg/dL Glucose (74-99) mg/dL POC Glucose (mg/dL) 154 H 110 H (75-99) mg/dL Calcium (8.4-10.2) mg/dL Ionized Calcium Yohan (4.5-5.3) mg/dL Magnesium (1.6-2.3) mg/dL Total Bilirubin (0.2-1.3) mg/dL ALT (21-72) U/L Alkaline Phosphatase (38-126) U/L Total Protein (6.3-8.2) g/dL Albumin (3.5-5.0) g/dL Arterial Blood Potassium (3.4-4.5) mmol/L Arterial Blood Glucose 141 H (75-99) mg/dL Crossmatch 01/26/19 01/26/19 01/26/19 Range/Units 10:05 10:05 10:59 WBC 2.8 L (3.8-10.6) k/uL RBC 1.82 L (4.30-5.90) m/uL Hgb 5.7 L* (13.0-17.5) gm/dL Hct 16.2 L* (39.0-53.0) % RDW (11.5-15.5) % Plt Count (150-450) k/uL Lymphocytes # 0.3 L (1.0-4.8) k/uL PT (9.0-12.0) sec INR (<1.2) APTT (22.0-30.0) sec Fibrinogen (200-500) mg/dL ABG pH (7.35-7.45) ABG pCO2 (35-45) mmHg ABG pO2 (83-108) mmHg ABG HCO3 (21-25) mmol/L ABG Total CO2 (19-24) mmol/L ABG O2 Saturation (94-97) % ABG Hematocrit (34.0-46.0) % ABG Sodium (135-146) mmol/L ABG Potassium (3.4-4.5) mmol/L ABG Ionized Calcium (4.5-5.3) mg/dL ABG Glucose (75-99) mg/dL Hemoglobin (13.0-17.5) gm/dL Potassium 2.2 L* (3.5-5.1) mmol/L Chloride 126 H (98-107) mmol/L Carbon Dioxide 14 L (22-30) mmol/L BUN (9-20) mg/dL Creatinine 0.52 L (0.66-1.25) mg/dL Glucose 70 L (74-99) mg/dL POC Glucose (mg/dL) 108 H (75-99) mg/dL Calcium 4.4 L* (8.4-10.2) mg/dL Ionized Calcium Yohan 3.6 L (4.5-5.3) mg/dL Magnesium (1.6-2.3) mg/dL Total Bilirubin (0.2-1.3) mg/dL ALT 18 L (21-72) U/L Alkaline Phosphatase <20 L (38-126) U/L Total Protein 2.3 L (6.3-8.2) g/dL Albumin 1.2 L (3.5-5.0) g/dL Arterial Blood Potassium (3.4-4.5) mmol/L Arterial Blood Glucose (75-99) mg/dL Crossmatch Assessment and Plan Assessment: 1. Multivessel coronary artery disease; - status post three-vessel coronary artery bypass grafting, with VINCENT to LAD, radial arterial graft to the RCA, and saphenous venous graft to the OM, postoperative day # 1 2. 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 Acute blood loss anemia; normal outcome of bypass grafting surgery. Patient did have a perforated artery artery, and perforated coronary sinus, unexpected outcomes of bypass grafting surgery - patient continued to have issues with bleeding from the mediastinal tube yesterday- had on and off bleeding with drop in hemoglobin as low as 6.3; given blood products including packed RBC, a total of 4 units. He also received a total of 4 units of fresh frozen plasma 20 units of cryoprecipitate, 5 units of platelets; for concern of ongoing bleed, patient was taken to the operating room and expiration was done and there was no evidence of any ongoing bleeding at a time of the surgical exploration. The patient was brought back to the ICU intubated on a mechanical ventilator 4. Hypertension; stable on Norvasc 2.5 mg daily; metoprolol 25 mg twice a day. Patient has orders for IV hydralazine to be used when necessary for systolic blood pressure greater than 160 5. Hypercholesterolemia; continue with Lipitor 40 mg daily at bedtime 6. DVT prophylaxis; Arixtra 2.5 mg subcu daily CODE STATUS; full code Time with Patient: Greater than 30
[2019-01-27 09:59] LABS: Glucose,Whole Blood 123 mg/dL (75-99)
--- NOTE | 2019-01-27 10:46 | P.PN ---
Subjective Progress Note Date: 01/27/19 Principal diagnosis: Multivessel coronary artery disease, moderate mitral valve regurgitation with preserved ejection fraction. Past medical history significant for hypertension, hypercholesterolemia, history of obstructive sleep apnea, abdominal aortic aneurysm status post aortobifem surgery, remote history of nicotine dependence and history of right-sided lung cancer, status post surgical intervention as well as chemotherapy and radiation therapy in 2017. POD #2 coronary artery bypass grafting 3 vessels with placement of his left internal mammary artery to left anterior setting coronary artery, radial artery to the posterior descending coronary artery, a reverse greater saphenous vein graft to the obtuse marginal coronary artery. Endoscopic vein harvest right greater saphenous vein. Endoscopic harvest left radial artery. Intraoperative transesophageal echocardiogram, epi-aortic ultrasound and graft flow measurements using the [employer] system. POD #1 mediastinal exploration. Postoperative acute blood loss anemia, an unexpected but potential outcome due to cardiopulmonary bypass and hemodilution. Postoperative paroxysmal atrial fibrillation, an unexpected but potential outcome of surgery. The patient remains in the intensive care unit, he is sedated on a propofol drip, remains intubated with mechanical ventilator support. Norepinephrine drip infusing at 1 mcg/m. Right IJ Whitehouse-Belinda catheter in place, current cardiac output is 5.2, cardiac index 3.7, PA pressures 33/17, CVP 14 mmHg. The patient was taken back to the operating room yesterday for mediastinal exploration due to some postoperative acute blood loss anemia. This morning his labs are showing a hemoglobin of 7.4, hematocrit 20.8, platelet count of 67. Mediastinal and left pleural chest tubes remain to low continuous wall suction -20 cm H2O. No air leak is present. They continued to drain thin serosanguineous drainage. Mediastinal chest tubes with 80 mL output in the last 8 hours, left pleural chest tube with 110 mL output in the last 8 hours. Oxygen saturations are 97% with mechanical ventilator support. Current mechanical ventilator settings are assist control 20, TV 550, FiO2 40%, PEEP 5.0. ABG results this morning show a pH of 7.46, pCO2 35, pO2 88, HCO3 25, oxygen saturation is 97.7, base excess 1.1. Bedside telemetry showing normal sinus rhythm heart rate 96, no further episodes of paroxysmal atrial fibrillation reported. He remains on amiodarone drip at 0.5 mg/m. Objective - Vital Signs Vital signs: Vital Signs Temp 98.8 F 01/27/19 04:00 Pulse 74 01/27/19 07:52 Resp 23 01/27/19 07:00 BP 90/56 01/27/19 06:00 Pulse Ox 97 01/27/19 07:00 Intake & Output 01/26/19 01/27/19 01/27/19 18:59 06:59 18:59 Intake Total 3048.333 1570.615 134.433 Output Total 980 1540 75 Balance 2068.333 30.615 59.433 Weight 72.575 kg 80.4 kg Intake: IV 1572 1058 59 .9NS Pressure Bag 90 108 9 ACETAMINOPHEN IV (For NPO 0 ) 1,000 mg In Empty Bag 1 bag @ 400 mls/hr IVPB Q6HR RASHAD Rx#:[id number] Albumin Human 5% 250 ml 750 In Empty Bag 1 bag @ 250 mls/hr IVPB Q1HR PRN Rx#: [id number] Lactated Ringers 1,000 ml 500 600 50 @ 50 mls/hr IV .Q20H RASHAD Rx#:[id number] Potassium Chloride 20 meq 200 In Water For Injection 1 100ml.bag @ 50 mls/hr IVPB Q2H RASHAD Rx#: [id number] cardiac output 180 150 ceFAZolin 2 gm In Sodium 50 Chloride 0.9% 50 ml @ 100 mls/hr IVPB Q8HR RASHAD Rx# :[id number] Intake, IV Titration 736.333 512.615 75.433 Amount Amiodarone 300 mg In 250 250 Dextrose 5% in Water 250 ml @ 0.5 MG/MIN 25 mls/hr IV .Q10H PRN Rx#: [id number] Amiodarone 360 mg In 200 Dextrose 5% in Water 200 ml @ 1 MG/MIN 33.333 mls/ hr IV .Q6H PRN Rx#: [id number] Clevidipine Butyrate 25 10.334 mg In Empty Bag 1 bag @ 1 MG/HR 2 mls/hr IV .Q24H RASHAD Rx#:[id number] Dexmedetomidine/0.9% NaCl 32.054 (Pmx) 400 mcg In Empty Bag 1 bag @ Titrate IV . Q0M RASHAD Rx#:[id number] Insulin Regular 100 unit 32.500 14.558 0.675 In Sodium Chloride 0.9% 100 ml @ Per Protocol IV .Q0M RASHAD Rx#:[id number] Nitroglycerin-D5w Pmx 50 25.35 mg In Dextrose/Water 1 250ml.bag @ 5 MCG/MIN 1.5 mls/hr IV .Q24H RASHAD Rx#: [id number] Norepinephrine 4 mg In 186.095 70.256 6.175 Sodium Chloride 0.9% 250 ml @ 0.04 MCG/KG/MIN 11. 06 mls/hr IV .[id number] RASHAD Rx#:[id number] Propofol 1,000 mg In 177.801 68.583 Empty Bag 1 bag @ Titrate IV .Q0M RASHAD Rx#: [id number] Oral 120 Blood Product 620 Rc As-1 Unit 310 [id number] Rc Pheresis As-3 Unit 310 [id number] Output: Chest Tube Drainage 410 240 40 Left Pleural 200 120 20 Mediastinal Chest Tube 210 120 20 Drainage 20 15 Left arm 10 5 Right Lower Calf 10 10 Urine 550 1300 20 Other: Voiding Method Indwelling Catheter Indwelling Catheter ABP, PAP, CO, CI - Last Documented Arterial Blood Pressure 98/44 Pulmonary Artery Pressure 30/16 Cardiac Output 5.2 Cardiac Index 2.7 - Constitutional Constitutional Comment(s): Sedated with diprivan drip at 45 mcg/kg/min and is in no apparent distress. - Respiratory Details: Lung sounds essentially clear throughout, no crackles, rhonchi or wheezes. R espirations symmetrical and non-laboured with mechanical ventilator support. Mediastinal and left pleural chest tubes remain in place to low continuos wall suction -20 cm H2O. No air leak is present. Draining thins serosanginous drainage with 80 ml in the last 8 hrs and 300 ml in the last 24 hrs from his mediastinal chest tubes. 110 ml in the last 8 hrs and 270 ml in the last 24 hrs from his left pleural chest tube. - Cardiovascular Details: Regular rhythm and rate. S1 and S2 present, negative for S3, gallop or murmur. Sternum is stable. Bedside telemetry showing normal sinus rhythm HR 96. Atrial and ventricular epicardial pacemaker wires intact and connected to backup pacemaker generator on a VVI 50. Right IJ Cordis and Whitehouse-Belinda catheter in renata ce and functioning. Right radial arterial line in place and functioning. Knee- high LEOBARDO hose and sequential compression devices in place to his bilateral lower extremities. Heart hugger is in place. - Gastrointestinal Gastrointestinal Comment(s): Abdomen is soft, nontender and nondistended. Active bowel sounds present in all 4 abdominal quadrants. No guarding or rigidity. No organomegaly appreciated. OG tube in place to low intermittent wall suction. - Genitourinary Genitourinary Comment(s): Godoy catheter for accurate I&O. Draining clear david urine. - Integumentary Integumentary Comment(s): Skin is warm and dry. No clubbing or cyanosis is present. Midline sternal incision is clean, dry and approximated. No drainage or redness present. Gauze dressing is clean, dry and intact. Left radial harvest site clean, dry and approximated. No drainage or redness is present. ARMOND drain in place draining scant serosanguineous drainage. Right lower extremity EVH site clean, dry and approximated. No drainage or redness is present. Scattered ecchymotic areas to his right thigh and right lower leg. ARMOND drain in place draining scant serosanguineous drainage. - Neurologic Neurologic Comment(s): Sedated with propofol drip. - Musculoskeletal Musculoskeletal: Present: generalized weakness, strength equal bilaterally - Psychiatric Psychiatric Comment(s): Sedated with propofol drip. - Allied health notes Allied health notes reviewed: nursing - Labs CBC & Chem 7: 01/27/19 04:25 01/27/19 04:25 Labs: Abnormal Lab Results - Last 24 Hours (Table) 01/17/19 01/26/19 01/26/19 Range/Units 09:00 07:44 09:45 WBC (3.8-10.6) k/uL RBC (4.30-5.90) m/uL Hgb (13.0-17.5) gm/dL Hct (39.0-53.0) % RDW (11.5-15.5) % Plt Count (150-450) k/uL Lymphocytes # (1.0-4.8) k/uL Lymphocytes # (Manual) (1.0-4.8) k/uL PT (9.0-12.0) sec INR (<1.2) APTT (22.0-30.0) sec ABG pH (7.35-7.45) ABG pO2 396 H (83-108) mmHg ABG HCO3 27 H (21-25) mmol/L ABG Total CO2 28 H (19-24) mmol/L ABG O2 Saturation 100.0 H (94-97) % ABG Hematocrit 19 L* (34.0-46.0) % ABG Ionized Calcium 4.3 L (4.5-5.3) mg/dL ABG Glucose 141 H (75-99) mg/dL Hemoglobin 6.2 L* (13.0-17.5) gm/dL Potassium (3.5-5.1) mmol/L Chloride (98-107) mmol/L Carbon Dioxide (22-30) mmol/L BUN (9-20) mg/dL Creatinine (0.66-1.25) mg/dL Glucose (74-99) mg/dL POC Glucose (mg/dL) 110 H (75-99) mg/dL Calcium (8.4-10.2) mg/dL Ionized Calcium Yohan (4.5-5.3) mg/dL ALT (21-72) U/L Alkaline Phosphatase (38-126) U/L Total Protein (6.3-8.2) g/dL Albumin (3.5-5.0) g/dL Arterial Blood Glucose 141 H (75-99) mg/dL Crossmatch See Detail 01/26/19 01/26/19 01/26/19 Range/Units 10:05 10:05 10:05 WBC 2.8 L (3.8-10.6) k/uL RBC 1.82 L (4.30-5.90) m/uL Hgb 5.7 L* (13.0-17.5) gm/dL Hct 16.2 L* (39.0-53.0) % RDW (11.5-15.5) % Plt Count 37 L (150-450) k/uL Lymphocytes # 0.3 L (1.0-4.8) k/uL Lymphocytes # (Manual) (1.0-4.8) k/uL PT 13.6 H (9.0-12.0) sec INR 1.3 H (<1.2) APTT 45.1 H (22.0-30.0) sec ABG pH (7.35-7.45) ABG pO2 (83-108) mmHg ABG HCO3 (21-25) mmol/L ABG Total CO2 (19-24) mmol/L ABG O2 Saturation (94-97) % ABG Hematocrit (34.0-46.0) % ABG Ionized Calcium (4.5-5.3) mg/dL ABG Glucose (75-99) mg/dL Hemoglobin (13.0-17.5) gm/dL Potassium 2.2 L* (3.5-5.1) mmol/L Chloride 126 H (98-107) mmol/L Carbon Dioxide 14 L (22-30) mmol/L BUN (9-20) mg/dL Creatinine 0.52 L (0.66-1.25) mg/dL Glucose 70 L (74-99) mg/dL POC Glucose (mg/dL) (75-99) mg/dL Calcium 4.4 L* (8.4-10.2) mg/dL Ionized Calcium Yohan 3.6 L (4.5-5.3) mg/dL ALT 18 L (21-72) U/L Alkaline Phosphatase <20 L (38-126) U/L Total Protein 2.3 L (6.3-8.2) g/dL Albumin 1.2 L (3.5-5.0) g/dL Arterial Blood Glucose (75-99) mg/dL Crossmatch 01/26/19 01/26/19 01/26/19 Range/Units 10:59 11:13 11:13 WBC (3.8-10.6) k/uL RBC 2.36 L (4.30-5.90) m/uL Hgb 7.4 L D (13.0-17.5) gm/dL Hct 20.9 L (39.0-53.0) % RDW (11.5-15.5) % Plt Count 64 L D (150-450) k/uL Lymphocytes # (1.0-4.8) k/uL Lymphocytes # (Manual) 0.39 L (1.0-4.8) k/uL PT (9.0-12.0) sec INR (<1.2) APTT 31.7 H (22.0-30.0) sec ABG pH (7.35-7.45) ABG pO2 (83-108) mmHg ABG HCO3 (21-25) mmol/L ABG Total CO2 (19-24) mmol/L ABG O2 Saturation (94-97) % ABG Hematocrit (34.0-46.0) % ABG Ionized Calcium (4.5-5.3) mg/dL ABG Glucose (75-99) mg/dL Hemoglobin (13.0-17.5) gm/dL Potassium (3.5-5.1) mmol/L Chloride (98-107) mmol/L Carbon Dioxide (22-30) mmol/L BUN (9-20) mg/dL Creatinine (0.66-1.25) mg/dL Glucose (74-99) mg/dL POC Glucose (mg/dL) 108 H (75-99) mg/dL Calcium (8.4-10.2) mg/dL Ionized Calcium Yohan (4.5-5.3) mg/dL ALT (21-72) U/L Alkaline Phosphatase (38-126) U/L Total Protein (6.3-8.2) g/dL Albumin (3.5-5.0) g/dL Arterial Blood Glucose (75-99) mg/dL Crossmatch 01/26/19 01/26/19 01/26/19 Range/Units 11:13 11:53 12:59 WBC (3.8-10.6) k/uL RBC (4.30-5.90) m/uL Hgb (13.0-17.5) gm/dL Hct (39.0-53.0) % RDW (11.5-15.5) % Plt Count (150-450) k/uL Lymphocytes # (1.0-4.8) k/uL Lymphocytes # (Manual) (1.0-4.8) k/uL PT (9.0-12.0) sec INR (<1.2) APTT (22.0-30.0) sec ABG pH (7.35-7.45) ABG pO2 (83-108) mmHg ABG HCO3 (21-25) mmol/L ABG Total CO2 (19-24) mmol/L ABG O2 Saturation (94-97) % ABG Hematocrit (34.0-46.0) % ABG Ionized Calcium (4.5-5.3) mg/dL ABG Glucose (75-99) mg/dL Hemoglobin (13.0-17.5) gm/dL Potassium (3.5-5.1) mmol/L Chloride 110 H (98-107) mmol/L Carbon Dioxide (22-30) mmol/L BUN 23 H (9-20) mg/dL Creatinine (0.66-1.25) mg/dL Glucose 133 H (74-99) mg/dL POC Glucose (mg/dL) 121 H 163 H (75-99) mg/dL Calcium 8.1 L (8.4-10.2) mg/dL Ionized Calcium Yohan (4.5-5.3) mg/dL ALT (21-72) U/L Alkaline Phosphatase (38-126) U/L Total Protein (6.3-8.2) g/dL Albumin (3.5-5.0) g/dL Arterial Blood Glucose (75-99) mg/dL Crossmatch 01/26/19 01/26/19 01/26/19 Range/Units 14:06 14:59 16:08 WBC (3.8-10.6) k/uL RBC (4.30-5.90) m/uL Hgb (13.0-17.5) gm/dL Hct (39.0-53.0) % RDW (11.5-15.5) % Plt Count (150-450) k/uL Lymphocytes # (1.0-4.8) k/uL Lymphocytes # (Manual) (1.0-4.8) k/uL PT (9.0-12.0) sec INR (<1.2) APTT (22.0-30.0) sec ABG pH (7.35-7.45) ABG pO2 (83-108) mmHg ABG HCO3 (21-25) mmol/L ABG Total CO2 (19-24) mmol/L ABG O2 Saturation (94-97) % ABG Hematocrit (34.0-46.0) % ABG Ionized Calcium (4.5-5.3) mg/dL ABG Glucose (75-99) mg/dL Hemoglobin (13.0-17.5) gm/dL Potassium (3.5-5.1) mmol/L Chloride (98-107) mmol/L Carbon Dioxide (22-30) mmol/L BUN (9-20) mg/dL Creatinine (0.66-1.25) mg/dL Glucose (74-99) mg/dL POC Glucose (mg/dL) 187 H 203 H 175 H (75-99) mg/dL Calcium (8.4-10.2) mg/dL Ionized Calcium Yohan (4.5-5.3) mg/dL ALT (21-72) U/L Alkaline Phosphatase (38-126) U/L Total Protein (6.3-8.2) g/dL Albumin (3.5-5.0) g/dL Arterial Blood Glucose (75-99) mg/dL Crossmatch 01/26/19 01/26/19 01/26/19 Range/Units 17:21 18:03 19:03 WBC (3.8-10.6) k/uL RBC (4.30-5.90) m/uL Hgb (13.0-17.5) gm/dL Hct (39.0-53.0) % RDW (11.5-15.5) % Plt Count (150-450) k/uL Lymphocytes # (1.0-4.8) k/uL Lymphocytes # (Manual) (1.0-4.8) k/uL PT (9.0-12.0) sec INR (<1.2) APTT (22.0-30.0) sec ABG pH (7.35-7.45) ABG pO2 (83-108) mmHg ABG HCO3 (21-25) mmol/L ABG Total CO2 (19-24) mmol/L ABG O2 Saturation (94-97) % ABG Hematocrit (34.0-46.0) % ABG Ionized Calcium (4.5-5.3) mg/dL ABG Glucose (75-99) mg/dL Hemoglobin (13.0-17.5) gm/dL Potassium (3.5-5.1) mmol/L Chloride (98-107) mmol/L Carbon Dioxide (22-30) mmol/L BUN (9-20) mg/dL Creatinine (0.66-1.25) mg/dL Glucose (74-99) mg/dL POC Glucose (mg/dL) 143 H 146 H 138 H (75-99) mg/dL Calcium (8.4-10.2) mg/dL Ionized Calcium Yohan (4.5-5.3) mg/dL ALT (21-72) U/L Alkaline Phosphatase (38-126) U/L Total Protein (6.3-8.2) g/dL Albumin (3.5-5.0) g/dL Arterial Blood Glucose (75-99) mg/dL Crossmatch 01/26/19 01/26/19 01/26/19 Range/Units 20:05 20:33 20:33 WBC (3.8-10.6) k/uL RBC 2.30 L (4.30-5.90) m/uL Hgb 7.1 L (13.0-17.5) gm/dL Hct 20.1 L (39.0-53.0) % RDW (11.5-15.5) % Plt Count 54 L (150-450) k/uL Lymphocytes # (1.0-4.8) k/uL Lymphocytes # (Manual) (1.0-4.8) k/uL PT (9.0-12.0) sec INR (<1.2) APTT (22.0-30.0) sec ABG pH (7.35-7.45) ABG pO2 (83-108) mmHg ABG HCO3 (21-25) mmol/L ABG Total CO2 (19-24) mmol/L ABG O2 Saturation (94-97) % ABG Hematocrit (34.0-46.0) % ABG Ionized Calcium (4.5-5.3) mg/dL ABG Glucose (75-99) mg/dL Hemoglobin (13.0-17.5) gm/dL Potassium (3.5-5.1) mmol/L Chloride 108 H (98-107) mmol/L Carbon Dioxide (22-30) mmol/L BUN 23 H (9-20) mg/dL Creatinine (0.66-1.25) mg/dL Glucose 115 H (74-99) mg/dL POC Glucose (mg/dL) 121 H (75-99) mg/dL Calcium 8.1 L (8.4-10.2) mg/dL Ionized Calcium Yohan (4.5-5.3) mg/dL ALT (21-72) U/L Alkaline Phosphatase 30 L (38-126) U/L Total Protein 4.3 L (6.3-8.2) g/dL Albumin 2.7 L (3.5-5.0) g/dL Arterial Blood Glucose (75-99) mg/dL Crossmatch 01/26/19 01/26/19 01/26/19 Range/Units 20:41 21:56 22:44 WBC (3.8-10.6) k/uL RBC (4.30-5.90) m/uL Hgb (13.0-17.5) gm/dL Hct (39.0-53.0) % RDW (11.5-15.5) % Plt Count (150-450) k/uL Lymphocytes # (1.0-4.8) k/uL Lymphocytes # (Manual) (1.0-4.8) k/uL PT (9.0-12.0) sec INR (<1.2) APTT (22.0-30.0) sec ABG pH (7.35-7.45) ABG pO2 (83-108) mmHg ABG HCO3 (21-25) mmol/L ABG Total CO2 (19-24) mmol/L ABG O2 Saturation (94-97) % ABG Hematocrit (34.0-46.0) % ABG Ionized Calcium (4.5-5.3) mg/dL ABG Glucose (75-99) mg/dL Hemoglobin (13.0-17.5) gm/dL Potassium (3.5-5.1) mmol/L Chloride (98-107) mmol/L Carbon Dioxide (22-30) mmol/L BUN (9-20) mg/dL Creatinine (0.66-1.25) mg/dL Glucose (74-99) mg/dL POC Glucose (mg/dL) 125 H 102 H 114 H (75-99) mg/dL Calcium (8.4-10.2) mg/dL Ionized Calcium Yohan (4.5-5.3) mg/dL ALT (21-72) U/L Alkaline Phosphatase (38-126) U/L Total Protein (6.3-8.2) g/dL Albumin (3.5-5.0) g/dL Arterial Blood Glucose (75-99) mg/dL Crossmatch 01/26/19 01/27/19 01/27/19 Range/Units 23:56 00:57 03:52 WBC (3.8-10.6) k/uL RBC (4.30-5.90) m/uL Hgb (13.0-17.5) gm/dL Hct (39.0-53.0) % RDW (11.5-15.5) % Plt Count (150-450) k/uL Lymphocytes # (1.0-4.8) k/uL Lymphocytes # (Manual) (1.0-4.8) k/uL PT (9.0-12.0) sec INR (<1.2) APTT (22.0-30.0) sec ABG pH (7.35-7.45) ABG pO2 (83-108) mmHg ABG HCO3 (21-25) mmol/L ABG Total CO2 (19-24) mmol/L ABG O2 Saturation (94-97) % ABG Hematocrit (34.0-46.0) % ABG Ionized Calcium (4.5-5.3) mg/dL ABG Glucose (75-99) mg/dL Hemoglobin (13.0-17.5) gm/dL Potassium (3.5-5.1) mmol/L Chloride (98-107) mmol/L Carbon Dioxide (22-30) mmol/L BUN (9-20) mg/dL Creatinine (0.66-1.25) mg/dL Glucose (74-99) mg/dL POC Glucose (mg/dL) 126 H 119 H 106 H (75-99) mg/dL Calcium (8.4-10.2) mg/dL Ionized Calcium Yohan (4.5-5.3) mg/dL ALT (21-72) U/L Alkaline Phosphatase (38-126) U/L Total Protein (6.3-8.2) g/dL Albumin (3.5-5.0) g/dL Arterial Blood Glucose (75-99) mg/dL Crossmatch 01/27/19 01/27/19 01/27/19 Range/Units 04:25 04:25 04:42 WBC (3.8-10.6) k/uL RBC 2.34 L (4.30-5.90) m/uL Hgb 7.4 L (13.0-17.5) gm/dL Hct 20.8 L (39.0-53.0) % RDW 15.9 H (11.5-15.5) % Plt Count 67 L (150-450) k/uL Lymphocytes # (1.0-4.8) k/uL Lymphocytes # (Manual) 0.57 L (1.0-4.8) k/uL PT (9.0-12.0) sec INR (<1.2) APTT (22.0-30.0) sec ABG pH (7.35-7.45) ABG pO2 (83-108) mmHg ABG HCO3 (21-25) mmol/L ABG Total CO2 (19-24) mmol/L ABG O2 Saturation (94-97) % ABG Hematocrit (34.0-46.0) % ABG Ionized Calcium (4.5-5.3) mg/dL ABG Glucose (75-99) mg/dL Hemoglobin (13.0-17.5) gm/dL Potassium (3.5-5.1) mmol/L Chloride (98-107) mmol/L Carbon Dioxide (22-30) mmol/L BUN 22 H (9-20) mg/dL Creatinine (0.66-1.25) mg/dL Glucose 138 H (74-99) mg/dL POC Glucose (mg/dL) 139 H (75-99) mg/dL Calcium 8.0 L (8.4-10.2) mg/dL Ionized Calcium Yohan (4.5-5.3) mg/dL ALT (21-72) U/L Alkaline Phosphatase 32 L (38-126) U/L Total Protein 4.6 L (6.3-8.2) g/dL Albumin 3.0 L (3.5-5.0) g/dL Arterial Blood Glucose (75-99) mg/dL Crossmatch 01/27/19 01/27/19 01/27/19 Range/Units 05:22 05:26 06:58 WBC (3.8-10.6) k/uL RBC (4.30-5.90) m/uL Hgb (13.0-17.5) gm/dL Hct (39.0-53.0) % RDW (11.5-15.5) % Plt Count (150-450) k/uL Lymphocytes # (1.0-4.8) k/uL Lymphocytes # (Manual) (1.0-4.8) k/uL PT (9.0-12.0) sec INR (<1.2) APTT (22.0-30.0) sec ABG pH 7.46 H (7.35-7.45) ABG pO2 (83-108) mmHg ABG HCO3 (21-25) mmol/L ABG Total CO2 26 H (19-24) mmol/L ABG O2 Saturation 97.7 H (94-97) % ABG Hematocrit (34.0-46.0) % ABG Ionized Calcium (4.5-5.3) mg/dL ABG Glucose (75-99) mg/dL Hemoglobin (13.0-17.5) gm/dL Potassium (3.5-5.1) mmol/L Chloride (98-107) mmol/L Carbon Dioxide (22-30) mmol/L BUN (9-20) mg/dL Creatinine (0.66-1.25) mg/dL Glucose (74-99) mg/dL POC Glucose (mg/dL) 153 H 108 H (75-99) mg/dL Calcium (8.4-10.2) mg/dL Ionized Calcium Yohan (4.5-5.3) mg/dL ALT (21-72) U/L Alkaline Phosphatase (38-126) U/L Total Protein (6.3-8.2) g/dL Albumin (3.5-5.0) g/dL Arterial Blood Glucose (75-99) mg/dL Crossmatch 01/27/19 Range/Units 08:04 WBC (3.8-10.6) k/uL RBC (4.30-5.90) m/uL Hgb (13.0-17.5) gm/dL Hct (39.0-53.0) % RDW (11.5-15.5) % Plt Count (150-450) k/uL Lymphocytes # (1.0-4.8) k/uL Lymphocytes # (Manual) (1.0-4.8) k/uL PT (9.0-12.0) sec INR (<1.2) APTT (22.0-30.0) sec ABG pH (7.35-7.45) ABG pO2 (83-108) mmHg ABG HCO3 (21-25) mmol/L ABG Total CO2 (19-24) mmol/L ABG O2 Saturation (94-97) % ABG Hematocrit (34.0-46.0) % ABG Ionized Calcium (4.5-5.3) mg/dL ABG Glucose (75-99) mg/dL Hemoglobin (13.0-17.5) gm/dL Potassium (3.5-5.1) mmol/L Chloride (98-107) mmol/L Carbon Dioxide (22-30) mmol/L BUN (9-20) mg/dL Creatinine (0.66-1.25) mg/dL Glucose (74-99) mg/dL POC Glucose (mg/dL) 124 H (75-99) mg/dL Calcium (8.4-10.2) mg/dL Ionized Calcium Yohan (4.5-5.3) mg/dL ALT (21-72) U/L Alkaline Phosphatase (38-126) U/L Total Protein (6.3-8.2) g/dL Albumin (3.5-5.0) g/dL Arterial Blood Glucose (75-99) mg/dL Crossmatch - Imaging and Cardiology Chest x-ray: report reviewed, image reviewed Assessment and Plan Assessment: 1. Multivessel coronary artery disease, status post three-vessel coronary artery bypass grafting surgery 2. Postoperative acute blood loss anemia, an unexpected but potential outcome of surgery due to cardiopulmonary bypass and hemodilution 3. History of hypertension 4. History of hypercholesterolemia 5. History of abdominal aortic aneurysm status post surgical repair in 2017 6. History of lung cancer involving the right lung, history of surgical resection as well as chemotherapy and radiation therapy in 2017 7. Remote history of smoking 8. Postoperative paroxysmal atrial fibrillation, an expected but potential outcome of surgery 9. Postoperative hypoxic respiratory failure, requiring prolonged mechanical ventilator support. Plan: 1. Continue low-dose aspirin, statin, and beta scott. Metoprolol tartrate increased to 25 mg per OG-tube twice a day 2. Wean norepinephrine drip as tolerated. 3. Mechanical ventilator support management per Dr. Benitez recommendations. Once he is extubated encourage incentive spirometry use 10 times every hour while awake. 4. Will monitor daily labs and chest x-rays. Electrolyte replacement per protocol. Transfuse 1 unit of PRBCs today. 5. Bronchodilators per pulmonology management. 6. Pain control with current medication regimen. Avoid Toradol due to his platelet count. 7. Insulin management per primary care service. 8. Keep right IJ Cordis/[place] catheter, right radial arterial line and Godoy catheter in place for now. 9. Continue chest tubes to low continuous wall suction -20 cm H2O. 10. Continue GI and DVT prophylaxis. Subcu heparin discontinued yesterday and he was started on Arixtra 2.5 mg subcu daily. 11. Continue amlodipine 2.5 mg by mouth daily to prevent radial artery spasm. 13. Discontinue amiodarone drip, we will initiate amiodarone 400 mg per OG tube twice a day for atrial fibrillation prophylaxis. 14. More recommendations to follow based on patient's clinical course. Time with Patient: Greater than 30
[2019-01-27 10:52] LABS: Glucose,Whole Blood 108 mg/dL (75-99)
--- NOTE | 2019-01-27 11:46 | P.PN ---
Subjective Progress Note Date: 01/27/19 This is a 78-year-old white male patient with past medical history significant for hypertension, hypercholesterolemia, history of sleep apnea, abdominal aortic aneurysm with surgical repair in 2017, history of right-sided lung cancer status post resection in 2017 followed by chemotherapy and radiation therapy, past history of tobacco use currently in remission, moderate alcohol use, was diagnosed with multivessel coronary artery disease and moderate mitral regurgitation and was referred to cardiothoracic surgery for intervention. He had a heart catheterization on 11/02/2018 which revealed a 60% lesion in the left main artery, occlusion in the midportion of the left circumflex artery, mild disease in the LAD, there was a 99% critical lesion in the mid right coronary artery. Echocardiogram revealed ejection fraction of 55%, there was moderate mitral regurg with mild mitral annular calcification. On 01/25/2019 patient had three-vessel bypass with VINCENT to LAD, radial artery graft to the RCA, and saphenous graft to the OM, Intra-operatively patient apparently had a perforated pulmonary artery and the coronary sinus requiring repair, overall patient did well, he received Cell Saver, no blood products Intra-Op, did receive 4 to have liters of crystalloids, 1.5 L of albumin. We seen the patient in the ICU in the immediate postoperative period, he is intubated on mechanical ventilator on IMV mode with a rate of 10, tidal volume of 550, FiO2 100% and PEEP of 5, as was switched over to assist control mode of ventilation with a rate of 12, same tidal volume, same FiO2, and PEEP was up to 10. Postop blood gases are pending. Patient had put out 700 mL of sanguinous output from the mediastinal chest tube, left pleural chest tube is relatively dry. He is receiving 5 units of platelets, 2 units of FFP, 2 of albumin, he was given a dose of DDAVP, and 10 units of cryoprecipitate. Postop blood work showed a white blood cell count of 5.8, hemoglobin is 8.3, INR is 1.5, sodium is 139, potassium is 4.2, chloride is 108, CO2 is 26, BUN is 23, creatinine 0.9. Maintenance IV fluids of lactated Ringer's at a rate of 50, no pressors. No sedation, PA pressures 27/14, with a CVP of 4, cardiac output and cardiac index of 4.1 and 2.1 respectively. On 01/26/2019 the patient remains intubated on a mechanical ventilator. The patient continued to have issues with bleeding from the mediastinal tube yesterday. Throughout the night, the patient had on and off bleeding with drop in hemoglobin as low as 6.3 and the patient accordingly was given blood products including packed RBC, a total of 4 units. He also received a total of 4 units of fresh frozen plasma 20 units of cryoprecipitate, 5 units of platelets. Note that he was showing signs of coagulopathy which probably complicated his bleeding further. Following all this, the morning hemoglobin was at 6.3. There was still concern of ongoing bleed and for that reason the patient was taken to the operating room and expiration was done and there was no evidence of any ongoing bleeding at a time of the surgical exploration. The patient was brought back to the ICU intubated on a mechanical ventilator. At the time of arrival, hemoglobin came back at 7.4 and his cardiac output was low initially with an index of 1.5 and the patient accordingly was given albumin 5% 2, a total of 500 mL and subsequently the patient's cardiac output and index improved. He is still producing adequate amount of urine output. No significant bleeding from his mediastinal or pleural chest tube in the time being. Note that he also developed some hives following his packed RBC transfusion and the patient was given Benadryl. At this point in time, the patient remains intubated on a mechanical ventilator. His assist-control mode of ventilation with a rate of 20 with tidal volume of 550 and FiO2 of 40% with a PEEP of 5. The most recent blood gases showed a pH of 7.44 with a pCO2 of 40 and pO2 of 396 and this was done and FiO2 of 100%. Accordingly, the FiO2 was brought back down to 40%. His chest x-ray shows routine postsurgical changes with adequate positioning of the ET tube, chest tubes and [place] catheter. No evidence of any pneumothorax. No evidence of any pneumonia. No evidence of any ulnar infiltrates or effusions. The most recent quite shows an INR of 1.1 with a PT of 11.5 and a PTT of 31.7 and the average 11 is at 20 on 22. The patient is producing adequate amount of urine output. His cardiac rhythmat the rate of 90. He did have a bout of atrial fibrillation last night placed on amiodarone which is currently running at 0.5 mg per minute. He is interested rhythm for now is sinus. He is on no pressors. He is off the Cardizem drip. The blood pressure subsequently came up after this consideration of Cardizem and adequate resuscitation. The patient was started on Catapres for blood pressure control. He is also on insulin for blood sugar control. Sedation is with Precedex On today's evaluation of 01/27/2019 the patient remains intubated on a mechanical ventilator. The patient is postop day #2. The patient has undergone three-vessel bypass surgery. He had a complicated postoperative course. He required a mediastinal reexploration for possible bleeding and that that turner off to be negative. Over the past 24 hours, the patient continued to have issues with blood pressure, atrial fibrillation, low hemoglobin and he was having difficulties in coming off the sedation. For that reason no extubation was done. He was switched to Precedex which was causing significant hemodynamic changes including hypotension. Ultimately had to be placed back on propofol which was able to control his hemodynamics and sedation level much more effectively. Once coming off the sedation the patient does not show adequate response. He would grimace to painful stimulation. He may track sometimes yet he is not following any commands. I was told by the surgeon that may be there is an underlying component of dementia complicating his picture. This morning he was in the 40 mics of propofol. He was on norepinephrine infusion at 1 g per minute. His cardiac output was at 5.2 with an index of 3.7 with a pulmonary artery pressure of 33/17 and a CVP of 14. He is on a mechanical ventilator within assist-control mode at the rate of 20 with tidal volume of 550 and FiO2 of 40% with a PEEP of 5. Blood gas showing a pH of 7.46 with a pCO2 of 35 and a pO2 of 88. The patient was in normal sinus rhythm with occasional PACs and PVCs. He is on amiodarone infusion running at 0.5 mg per minute as maintenance. He is chest tubes are all in place. The drainage is serosanguineous. No active bleeding. Mediastinal chest tubes have been around 80 mL over the past 8 hours and the left-sided chest tube is draining around 1 densities over the past 8 hours. The patient is afebrile. The patient is a chest x-ray this morning that showed no acute abnormalities and the findings and essentially postsurgical in nature with tubes are all in place. His hemoglobin is at 7.4. Platelet count is at 67. Objective - Vital Signs Vital signs: Vital Signs Temp 100.6 F H 01/27/19 10:14 Pulse 89 01/27/19 11:10 Resp 28 H 01/27/19 10:14 BP 87/46 01/27/19 10:14 Pulse Ox 94 L 01/27/19 10:04 Intake & Output 01/26/19 01/27/19 01/27/19 18:59 06:59 18:59 Intake Total 3048.333 1570.615 994.079 Output Total 980 1540 162 Balance 2068.333 30.615 832.079 Weight 72.575 kg 80.4 kg Intake: IV 1572 1058 755 .9NS Pressure Bag 90 108 45 ACETAMINOPHEN IV (For NPO 0 ) 1,000 mg In Empty Bag 1 bag @ 400 mls/hr IVPB Q6HR RASHAD Rx#:[id number] Albumin Human 5% 250 ml 750 250 In Empty Bag 1 bag @ 250 mls/hr IVPB Q1HR PRN Rx#: [id number] Lactated Ringers 1,000 ml 500 600 250 @ 20 mls/hr IV .Q24H RASHAD Rx#:[id number] Potassium Chloride 20 meq 200 100 In Water For Injection 1 100ml.bag @ 50 mls/hr IVPB Q2H RASHAD Rx#: [id number] cardiac output 180 150 60 ceFAZolin 2 gm In Sodium 50 50 Chloride 0.9% 50 ml @ 100 mls/hr IVPB Q8HR RASHAD Rx# :[id number] Intake, IV Titration 736.333 512.615 239.079 Amount Amiodarone 300 mg In 250 250 Dextrose 5% in Water 250 ml @ 0.5 MG/MIN 25 mls/hr IV .Q10H PRN Rx#: [id number] Amiodarone 360 mg In 200 Dextrose 5% in Water 200 ml @ 1 MG/MIN 33.333 mls/ hr IV .Q6H PRN Rx#: [id number] Clevidipine Butyrate 25 10.334 mg In Empty Bag 1 bag @ 1 MG/HR 2 mls/hr IV .Q24H RASHAD Rx#:[id number] Dexmedetomidine/0.9% NaCl 32.054 (Pmx) 400 mcg In Empty Bag 1 bag @ Titrate IV . Q0M RASHAD Rx#:[id number] Insulin Regular 100 unit 32.500 14.558 2.400 In Sodium Chloride 0.9% 100 ml @ Per Protocol IV .Q0M RASHAD Rx#:[id number] Nitroglycerin-D5w Pmx 50 25.35 mg In Dextrose/Water 1 250ml.bag @ 5 MCG/MIN 1.5 mls/hr IV .Q24H RASHAD Rx#: [id number] Norepinephrine 4 mg In 186.095 70.256 160.699 Sodium Chloride 0.9% 250 ml @ 0.04 MCG/KG/MIN 11. 06 mls/hr IV .[id number] RASHAD Rx#:[id number] Propofol 1,000 mg In 177.801 75.980 Empty Bag 1 bag @ Titrate IV .Q0M RASHAD Rx#: [id number] Oral 120 Blood Product 620 0 Rc As-1 Unit 310 [id number] Rc As-1 Unit 0 [id number] Rc Pheresis As-3 Unit 310 [id number] Output: Chest Tube Drainage 410 240 80 Left Pleural 200 120 30 Mediastinal Chest Tube 210 120 50 Drainage 20 15 Left arm 10 5 Right Lower Calf 10 10 Urine 550 1300 67 Other: Voiding Method Indwelling Catheter Indwelling Catheter ABP, PAP, CO, CI - Last Documented Arterial Blood Pressure 89/50 Pulmonary Artery Pressure 41/21 Cardiac Output 5.1 Cardiac Index 2.6 - Exam GENERAL EXAM: 78-year-old white male patient intubated, sedated on mechanical ventilator in no apparent distress. HEAD: Normocephalic/atraumatic. EYES: Normal reaction of pupils, equal size. Conjunctiva pink, sclera white. NOSE: Clear with pink turbinates. THROAT: No erythema or exudates. NECK: No masses, no JVD, no thyroid enlargement, no adenopathy. CHEST: No chest wall deformity. Symmetrical expansion. Midsternal incision is clean dry and intact, 2 mediastinal one right pleural chest tube. Atrial ventricular epicardial wires connected to the external pacemaker and patient is being paced at a AAI mode at a rate of 90 BPM LUNGS: Equal air entry with no crackles, wheeze, rhonchi or dullness. CVS: Regular rate and rhythm, normal S1 and S2, no gallops, no murmurs, no rubs ABDOMEN: Soft, nontender. No hepatosplenomegaly, normal bowel sounds, no guarding or rigidity. EXTREMITIES: No clubbing, no edema, no cyanosis, 2+ pulses and upper and lower extremities. Lower extremities are kelton wrapped and SCDs are present MUSCULOSKELETAL: Muscle strength and tone normal. SPINE: No scoliosis or deformity SKIN: No rashes CENTRAL NERVOUS SYSTEM: Sedated, intubated. No focal deficits, tone is normal in all 4 extremities. - Labs CBC & Chem 7: 01/27/19 04:25 01/27/19 04:25 Labs: Abnormal Lab Results - Last 24 Hours (Table) 01/17/19 01/26/19 01/26/19 Range/Units 09:00 10:05 11:13 RBC 2.36 L (4.30-5.90) m/uL Hgb 7.4 L D (13.0-17.5) gm/dL Hct 20.9 L (39.0-53.0) % RDW (11.5-15.5) % Plt Count 37 L 64 L D (150-450) k/uL Lymphocytes # (Manual) 0.39 L (1.0-4.8) k/uL APTT (22.0-30.0) sec ABG pH (7.35-7.45) ABG Total CO2 (19-24) mmol/L ABG O2 Saturation (94-97) % Chloride (98-107) mmol/L BUN (9-20) mg/dL Glucose (74-99) mg/dL POC Glucose (mg/dL) (75-99) mg/dL Calcium (8.4-10.2) mg/dL Alkaline Phosphatase (38-126) U/L Total Protein (6.3-8.2) g/dL Albumin (3.5-5.0) g/dL Crossmatch See Detail 01/26/19 01/26/19 01/26/19 Range/Units 11:13 11:13 11:53 RBC (4.30-5.90) m/uL Hgb (13.0-17.5) gm/dL Hct (39.0-53.0) % RDW (11.5-15.5) % Plt Count (150-450) k/uL Lymphocytes # (Manual) (1.0-4.8) k/uL APTT 31.7 H (22.0-30.0) sec ABG pH (7.35-7.45) ABG Total CO2 (19-24) mmol/L ABG O2 Saturation (94-97) % Chloride 110 H (98-107) mmol/L BUN 23 H (9-20) mg/dL Glucose 133 H (74-99) mg/dL POC Glucose (mg/dL) 121 H (75-99) mg/dL Calcium 8.1 L (8.4-10.2) mg/dL Alkaline Phosphatase (38-126) U/L Total Protein (6.3-8.2) g/dL Albumin (3.5-5.0) g/dL Crossmatch 01/26/19 01/26/19 01/26/19 Range/Units 12:59 14:06 14:59 RBC (4.30-5.90) m/uL Hgb (13.0-17.5) gm/dL Hct (39.0-53.0) % RDW (11.5-15.5) % Plt Count (150-450) k/uL Lymphocytes # (Manual) (1.0-4.8) k/uL APTT (22.0-30.0) sec ABG pH (7.35-7.45) ABG Total CO2 (19-24) mmol/L ABG O2 Saturation (94-97) % Chloride (98-107) mmol/L BUN (9-20) mg/dL Glucose (74-99) mg/dL POC Glucose (mg/dL) 163 H 187 H 203 H (75-99) mg/dL Calcium (8.4-10.2) mg/dL Alkaline Phosphatase (38-126) U/L Total Protein (6.3-8.2) g/dL Albumin (3.5-5.0) g/dL Crossmatch 01/26/19 01/26/19 01/26/19 Range/Units 16:08 17:21 18:03 RBC (4.30-5.90) m/uL Hgb (13.0-17.5) gm/dL Hct (39.0-53.0) % RDW (11.5-15.5) % Plt Count (150-450) k/uL Lymphocytes # (Manual) (1.0-4.8) k/uL APTT (22.0-30.0) sec ABG pH (7.35-7.45) ABG Total CO2 (19-24) mmol/L ABG O2 Saturation (94-97) % Chloride (98-107) mmol/L BUN (9-20) mg/dL Glucose (74-99) mg/dL POC Glucose (mg/dL) 175 H 143 H 146 H (75-99) mg/dL Calcium (8.4-10.2) mg/dL Alkaline Phosphatase (38-126) U/L Total Protein (6.3-8.2) g/dL Albumin (3.5-5.0) g/dL Crossmatch 01/26/19 01/26/19 01/26/19 Range/Units 19:03 20:05 20:33 RBC 2.30 L (4.30-5.90) m/uL Hgb 7.1 L (13.0-17.5) gm/dL Hct 20.1 L (39.0-53.0) % RDW (11.5-15.5) % Plt Count 54 L (150-450) k/uL Lymphocytes # (Manual) (1.0-4.8) k/uL APTT (22.0-30.0) sec ABG pH (7.35-7.45) ABG Total CO2 (19-24) mmol/L ABG O2 Saturation (94-97) % Chloride (98-107) mmol/L BUN (9-20) mg/dL Glucose (74-99) mg/dL POC Glucose (mg/dL) 138 H 121 H (75-99) mg/dL Calcium (8.4-10.2) mg/dL Alkaline Phosphatase (38-126) U/L Total Protein (6.3-8.2) g/dL Albumin (3.5-5.0) g/dL Crossmatch 01/26/19 01/26/19 01/26/19 Range/Units 20:33 20:41 21:56 RBC (4.30-5.90) m/uL Hgb (13.0-17.5) gm/dL Hct (39.0-53.0) % RDW (11.5-15.5) % Plt Count (150-450) k/uL Lymphocytes # (Manual) (1.0-4.8) k/uL APTT (22.0-30.0) sec ABG pH (7.35-7.45) ABG Total CO2 (19-24) mmol/L ABG O2 Saturation (94-97) % Chloride 108 H (98-107) mmol/L BUN 23 H (9-20) mg/dL Glucose 115 H (74-99) mg/dL POC Glucose (mg/dL) 125 H 102 H (75-99) mg/dL Calcium 8.1 L (8.4-10.2) mg/dL Alkaline Phosphatase 30 L (38-126) U/L Total Protein 4.3 L (6.3-8.2) g/dL Albumin 2.7 L (3.5-5.0) g/dL Crossmatch 01/26/19 01/26/19 01/27/19 Range/Units 22:44 23:56 00:57 RBC (4.30-5.90) m/uL Hgb (13.0-17.5) gm/dL Hct (39.0-53.0) % RDW (11.5-15.5) % Plt Count (150-450) k/uL Lymphocytes # (Manual) (1.0-4.8) k/uL APTT (22.0-30.0) sec ABG pH (7.35-7.45) ABG Total CO2 (19-24) mmol/L ABG O2 Saturation (94-97) % Chloride (98-107) mmol/L BUN (9-20) mg/dL Glucose (74-99) mg/dL POC Glucose (mg/dL) 114 H 126 H 119 H (75-99) mg/dL Calcium (8.4-10.2) mg/dL Alkaline Phosphatase (38-126) U/L Total Protein (6.3-8.2) g/dL Albumin (3.5-5.0) g/dL Crossmatch 01/27/19 01/27/19 01/27/19 Range/Units 03:52 04:25 04:25 RBC 2.34 L (4.30-5.90) m/uL Hgb 7.4 L (13.0-17.5) gm/dL Hct 20.8 L (39.0-53.0) % RDW 15.9 H (11.5-15.5) % Plt Count 67 L (150-450) k/uL Lymphocytes # (Manual) 0.57 L (1.0-4.8) k/uL APTT (22.0-30.0) sec ABG pH (7.35-7.45) ABG Total CO2 (19-24) mmol/L ABG O2 Saturation (94-97) % Chloride (98-107) mmol/L BUN 22 H (9-20) mg/dL Glucose 138 H (74-99) mg/dL POC Glucose (mg/dL) 106 H (75-99) mg/dL Calcium 8.0 L (8.4-10.2) mg/dL Alkaline Phosphatase 32 L (38-126) U/L Total Protein 4.6 L (6.3-8.2) g/dL Albumin 3.0 L (3.5-5.0) g/dL Crossmatch 01/27/19 01/27/19 01/27/19 Range/Units 04:42 05:22 05:26 RBC (4.30-5.90) m/uL Hgb (13.0-17.5) gm/dL Hct (39.0-53.0) % RDW (11.5-15.5) % Plt Count (150-450) k/uL Lymphocytes # (Manual) (1.0-4.8) k/uL APTT (22.0-30.0) sec ABG pH 7.46 H (7.35-7.45) ABG Total CO2 26 H (19-24) mmol/L ABG O2 Saturation 97.7 H (94-97) % Chloride (98-107) mmol/L BUN (9-20) mg/dL Glucose (74-99) mg/dL POC Glucose (mg/dL) 139 H 153 H (75-99) mg/dL Calcium (8.4-10.2) mg/dL Alkaline Phosphatase (38-126) U/L Total Protein (6.3-8.2) g/dL Albumin (3.5-5.0) g/dL Crossmatch 01/27/19 01/27/19 01/27/19 Range/Units 06:58 08:04 08:49 RBC (4.30-5.90) m/uL Hgb (13.0-17.5) gm/dL Hct (39.0-53.0) % RDW (11.5-15.5) % Plt Count (150-450) k/uL Lymphocytes # (Manual) (1.0-4.8) k/uL APTT (22.0-30.0) sec ABG pH (7.35-7.45) ABG Total CO2 (19-24) mmol/L ABG O2 Saturation (94-97) % Chloride (98-107) mmol/L BUN (9-20) mg/dL Glucose (74-99) mg/dL POC Glucose (mg/dL) 108 H 124 H 130 H (75-99) mg/dL Calcium (8.4-10.2) mg/dL Alkaline Phosphatase (38-126) U/L Total Protein (6.3-8.2) g/dL Albumin (3.5-5.0) g/dL Crossmatch 01/27/19 01/27/19 Range/Units 09:57 10:50 RBC (4.30-5.90) m/uL Hgb (13.0-17.5) gm/dL Hct (39.0-53.0) % RDW (11.5-15.5) % Plt Count (150-450) k/uL Lymphocytes # (Manual) (1.0-4.8) k/uL APTT (22.0-30.0) sec ABG pH (7.35-7.45) ABG Total CO2 (19-24) mmol/L ABG O2 Saturation (94-97) % Chloride (98-107) mmol/L BUN (9-20) mg/dL Glucose (74-99) mg/dL POC Glucose (mg/dL) 123 H 108 H (75-99) mg/dL Calcium (8.4-10.2) mg/dL Alkaline Phosphatase (38-126) U/L Total Protein (6.3-8.2) g/dL Albumin (3.5-5.0) g/dL Crossmatch Assessment and Plan Plan: #1. Multivessel coronary artery disease, status post three-vessel coronary artery bypass grafting, with VINCENT to LAD, radial arterial graft to the RCA, and saphenous venous graft to the OM, postoperative day 2. Intraoperatively the patient had coronary sinus and pulmonary artery rupture that was patch appropriately by the surgical team. Postop the patient continued to have inc reased bloody output from the mediastinal chest tube. His coagulopathy was reversed. He received fresh frozen plasma, cryoprecipitate and a total of 6 units of packed RBC. Currently hemodynamically stable. He remains intubated on a mechanical ventilator. He developed issues with hemodynamics and atrial fibrillation and low hemoglobin which obviously affected our ability to extubate this patient. He failed Precedex due to hemodynamic changes. Currently is on propofol. Overall his stabilized and I'm going to proceed with a weaning trial taken the patient off sedation assessing his mental status. Hemodynamically monitored very closely. #2 acute hypoxic respiratory failure, expected outcome of thoracotomy and bypass surgery, still intubated on mechanical ventilator this morning. #3. Acute blood loss anemia, normal outcome of bypass grafting surgery. Patient did have a perforated artery artery, and perforated coronary sinus, unexpected outcomes of bypass grafting surgery, and expected outcome of surgery and the patient had adequate hemostasis with control of the bleeds in addition to another explanation that was done earlier this morning that showed no signs of bleeding. Coagulopathy was reversed. On today's evaluation hemoglobin is at 7.4. The patient is receiving another unit of packed RBC per surgical recommendations. #4. Hypotension, currently on low-dose norepinephrine infusion for blood pressure control at 1 g per minute. #5. Paroxysmal atrial fibrillation, expected outcome of surgery, currently on amiodarone infusion as maintenance at 0.5 mg per minute. #6. History of abdominal aortic aneurysm with surgical repair in 2017 #7. History of lung cancer involving the right lung, with surgical resection followed by chemotherapy and radiation therapy #8. History of cholecystectomy #9. Former smoker #10 thrombocytopenia, expected outcome following surgery #11 history of hypertension #12 history of dementia #13 hyperlipidemia Plan Continue vent support. Gradually wean off the propofol and assess the patient's mental status. He may not be fully responsive, however, as long as the patient is able to protect his airway with a recent cough and a gag and shows adequate weaning parameters I'm going to consider extubating this patient today. He will be receiving a unit of packed RBC. Monitored hemodynamics. Titrate levo fed. Keep the amiodarone for now. We'll continue to follow up in case was discussed with cardiac thoracic surgery. Possible extubation today if he passes all these steps and he shows adequate candidacy for further weaning. We'll continue to follow. There is a critically care evaluation that was done and more than 30 minutes. Time with Patient: Greater than 30
[2019-01-27 12:03] LABS: Glucose,Whole Blood 115 mg/dL (75-99)
[2019-01-27] MEDS: NOREPINEPHRINE 4 MG in SODIUM CHLORIDE 0.9% 250 ML IV SCH ×2 (12:44→20:37)
[2019-01-27 12:48] LABS: ABG Base Excess -4.3 mmol/L; ABG HCO3 21 mmol/L (21-25); ABG Oxygen Saturation 93.9 % (94-97); ABG PCO2 34 mmHg (35-45); ABG PH 7.39 (7.35-7.45); ABG PO2 69 mmHg (83-108); ABG TCO2 22 mmol/L (19-24); Allen Test Performed? Yes
[2019-01-27 13:10] LABS: Glucose,Whole Blood 97 mg/dL (75-99)
[2019-01-27 14:08] LABS: Glucose,Whole Blood 124 mg/dL (75-99)
[2019-01-27] MEDS ORDERED: FUROSEMIDE 10 MG/ML 4 ML VIAL IV STA (14:08)
[2019-01-27] MEDS: CLEVIDIPINE BUTYRATE 25 MG in EMPTY BAG 1 BAG IV SCH (14:09)
--- NOTE | 2019-01-27 14:32 | XR ---
EXAMINATION TYPE: XR chest 1V DATE OF EXAM: 01/27/2019 COMPARISON: Today HISTORY: Short of breath TECHNIQUE: Single frontal view of the chest is obtained. FINDINGS: There is right jugular catheter with the tip in the right pulmonary artery. There is mild pulmonary congestion. There are chest tubes over the heart and left lung. No pneumothorax. IMPRESSION: Mild pulmonary congestion improved compared to exam this morning. Mild cardiomegaly. Stable mild infiltrate left lower lobe.
--- NOTE | 2019-01-27 14:54 | PN ---
PROGRESS NOTE This patient is status post coronary artery bypass surgery. Over the last 24 hours, patient developed atrial fibrillation and patient was given amiodarone bolus and now he has converted to the normal sinus rhythm. The patient has underlying bundle branch block. He continues to have intermittent PACs and PVCs. Patient was extubated this morning. Patient currently still on 10 mics of Levophed. He has a borderline urine output. The patient's PA pressures have improved since he has been extubated. Blood pressure is 122/57 mmHg. First and second heart sounds are normal. Lungs reveal bilateral scattered wheezes and rhonchi. Patient's creatinine remains 0.92. We will continue patient on oral amiodarone and continue possible fluid replacement to improve the urine output. MMODL / IJN: [id number] /
[2019-01-27] MEDS ORDERED: KETOROLAC 30 MG/ML 1 ML VIAL IVP SCH (15:00)
[2019-01-27 15:06] LABS: Glucose,Whole Blood 127 mg/dL (75-99)
[2019-01-27 16:02] LABS: Glucose,Whole Blood 124 mg/dL (75-99)
--- NOTE | 2019-01-27 16:02 | P.PN ---
Subjective Progress Note Date: 01/27/19 Principal diagnosis: Triple-vessel bypass surgery 78-year-old white male patient with past medical history significant for hypertension, hypercholesterolemia, history of sleep apnea, abdominal aortic aneurysm with surgical repair in 2017, history of right-sided lung cancer status post resection in 2017 followed by chemotherapy and radiation therapy, past history of tobacco use currently in remission, moderate alcohol use, was diagnosed with multivessel coronary artery disease and moderate mitral regurgitation and was referred to cardiothoracic surgery for intervention. He had a heart catheterization on 11/02/2018 which revealed a 60% lesion in the left main artery, occlusion in the midportion of the left circumflex artery, mild disease in the LAD, there was a 99% critical lesion in the mid right coronary artery. Echocardiogram revealed ejection fraction of 55%, there was moderate mitral regurg with mild mitral annular calcification. Patient underwent three-vessel bypass surgery on 01/25/2019 and transverse to ICU postoperatively for management of mechanical ventilator Internal medicine is consulted for management of hypertension and hyperlipidemia 01/27/2019 the patient was extubated and is on BiPAP. The patient is postop day #2. The patient has undergone three-vessel bypass surgery; required a mediastinal reexploration for possible bleeding and that that fountain pen turner to be negative. Over the past 24 hours, the patient continued to have issues with blood pressure, atrial fibrillation, low hemoglobin and he was having difficulties in coming off the sedation. For that reason no extubation was done. He is on amiodarone infusion running at 0.5 mg per minute as maintenance. He is chest tubes are all in place. The drainage is serosanguineous. No active bleeding. Mediastinal chest tubes have been around 80 mL over the past 8 hours and the left-sided chest tube is draining around 1 densities over the past 8 hours. The patient is afebrile. The patient is a chest x-ray this morning that showed no acute abnormalities and the findings and essentially postsurgical in nature with tubes are all in place. His hemoglobin is at 7.4. Platelet count is at 67. Objective - Vital Signs Vital signs: Vital Signs Temp 100.9 F H 01/27/19 09:30 Pulse 79 01/27/19 09:30 Resp 26 H 01/27/19 09:30 BP 85/54 01/27/19 09:30 Pulse Ox 94 L 01/27/19 09:30 Intake & Output 01/26/19 01/27/19 01/27/19 18:59 06:59 18:59 Intake Total 3048.333 1570.615 146.991 Output Total 980 1540 75 Balance 2068.333 30.615 71.991 Weight 72.575 kg 80.4 kg Intake: IV 1572 1058 59 .9NS Pressure Bag 90 108 9 ACETAMINOPHEN IV (For NPO 0 ) 1,000 mg In Empty Bag 1 bag @ 400 mls/hr IVPB Q6HR RASHAD Rx#:[id number] Albumin Human 5% 250 ml 750 In Empty Bag 1 bag @ 250 mls/hr IVPB Q1HR PRN Rx#: [id number] Lactated Ringers 1,000 ml 500 600 50 @ 50 mls/hr IV .Q20H RASHAD Rx#:[id number] Potassium Chloride 20 meq 200 In Water For Injection 1 100ml.bag @ 50 mls/hr IVPB Q2H RASHAD Rx#: [id number] cardiac output 180 150 ceFAZolin 2 gm In Sodium 50 Chloride 0.9% 50 ml @ 100 mls/hr IVPB Q8HR RASHAD Rx# :[id number] Intake, IV Titration 736.333 512.615 87.991 Amount Amiodarone 300 mg In 250 250 Dextrose 5% in Water 250 ml @ 0.5 MG/MIN 25 mls/hr IV .Q10H PRN Rx#: [id number] Amiodarone 360 mg In 200 Dextrose 5% in Water 200 ml @ 1 MG/MIN 33.333 mls/ hr IV .Q6H PRN Rx#: [id number] Clevidipine Butyrate 25 10.334 mg In Empty Bag 1 bag @ 1 MG/HR 2 mls/hr IV .Q24H RASHAD Rx#:[id number] Dexmedetomidine/0.9% NaCl 32.054 (Pmx) 400 mcg In Empty Bag 1 bag @ Titrate IV . Q0M RASHAD Rx#:[id number] Insulin Regular 100 unit 32.500 14.558 0.675 In Sodium Chloride 0.9% 100 ml @ Per Protocol IV .Q0M RASHAD Rx#:[id number] Nitroglycerin-D5w Pmx 50 25.35 mg In Dextrose/Water 1 250ml.bag @ 5 MCG/MIN 1.5 mls/hr IV .Q24H RASHAD Rx#: [id number] Norepinephrine 4 mg In 186.095 70.256 11.336 Sodium Chloride 0.9% 250 ml @ 0.04 MCG/KG/MIN 11. 06 mls/hr IV .[id number] RASHAD Rx#:[id number] Propofol 1,000 mg In 177.801 75.980 Empty Bag 1 bag @ Titrate IV .Q0M RASHAD Rx#: [id number] Oral 120 Blood Product 620 Rc As-1 Unit 310 [id number] Rc Pheresis As-3 Unit 310 [id number] Output: Chest Tube Drainage 410 240 40 Left Pleural 200 120 20 Mediastinal Chest Tube 210 120 20 Drainage 20 15 Left arm 10 5 Right Lower Calf 10 10 Urine 550 1300 20 Other: Voiding Method Indwelling Catheter Indwelling Catheter ABP, PAP, CO, CI - Last Documented Arterial Blood Pressure 89/50 Pulmonary Artery Pressure 41/21 Cardiac Output 5.1 Cardiac Index 2.6 - Exam GENERAL EXAM: 78-year-old white male patient intubated, sedated on mechanical ventilator in no apparent distress. HEAD: Normocephalic/atraumatic. EYES: Normal reaction of pupils, equal size. Conjunctiva pink, sclera white. NOSE: Clear with pink turbinates. THROAT: No erythema or exudates. NECK: No masses, no JVD, no thyroid enlargement, no adenopathy. CHEST: No chest wall deformity. Symmetrical expansion. Midsternal incision is clean dry and intact, 2 mediastinal one right pleural chest tube. Atrial ventricular epicardial wires connected to the external pacemaker and patient is being paced at a AAI mode at a rate of 80 BPM LUNGS: Equal air entry with no crackles, wheeze, rhonchi or dullness. CVS: Regular rate and rhythm, normal S1 and S2, no gallops, no murmurs, no rubs ABDOMEN: Soft, nontender. No hepatosplenomegaly, normal bowel sounds, no guarding or rigidity. EXTREMITIES: No clubbing, no edema, no cyanosis, 2+ pulses and upper and lower extremities. Lower extremities are kelton wrapped and SCDs are present - Labs CBC & Chem 7: 01/27/19 04:25 01/27/19 04:25 Labs: Abnormal Lab Results - Last 24 Hours (Table) 01/17/19 01/26/19 01/26/19 Range/Units 09:00 10:05 10:05 WBC 2.8 L (3.8-10.6) k/uL RBC 1.82 L (4.30-5.90) m/uL Hgb 5.7 L* (13.0-17.5) gm/dL Hct 16.2 L* (39.0-53.0) % RDW (11.5-15.5) % Plt Count 37 L (150-450) k/uL Lymphocytes # 0.3 L (1.0-4.8) k/uL Lymphocytes # (Manual) (1.0-4.8) k/uL PT 13.6 H (9.0-12.0) sec INR 1.3 H (<1.2) APTT 45.1 H (22.0-30.0) sec ABG pH (7.35-7.45) ABG Total CO2 (19-24) mmol/L ABG O2 Saturation (94-97) % Potassium (3.5-5.1) mmol/L Chloride (98-107) mmol/L Carbon Dioxide (22-30) mmol/L BUN (9-20) mg/dL Creatinine (0.66-1.25) mg/dL Glucose (74-99) mg/dL POC Glucose (mg/dL) (75-99) mg/dL Calcium (8.4-10.2) mg/dL Ionized Calcium Yohan (4.5-5.3) mg/dL ALT (21-72) U/L Alkaline Phosphatase (38-126) U/L Total Protein (6.3-8.2) g/dL Albumin (3.5-5.0) g/dL Crossmatch See Detail 01/26/19 01/26/19 01/26/19 Range/Units 10:05 10:59 11:13 WBC (3.8-10.6) k/uL RBC 2.36 L (4.30-5.90) m/uL Hgb 7.4 L D (13.0-17.5) gm/dL Hct 20.9 L (39.0-53.0) % RDW (11.5-15.5) % Plt Count 64 L D (150-450) k/uL Lymphocytes # (1.0-4.8) k/uL Lymphocytes # (Manual) 0.39 L (1.0-4.8) k/uL PT (9.0-12.0) sec INR (<1.2) APTT (22.0-30.0) sec ABG pH (7.35-7.45) ABG Total CO2 (19-24) mmol/L ABG O2 Saturation (94-97) % Potassium 2.2 L* (3.5-5.1) mmol/L Chloride 126 H (98-107) mmol/L Carbon Dioxide 14 L (22-30) mmol/L BUN (9-20) mg/dL Creatinine 0.52 L (0.66-1.25) mg/dL Glucose 70 L (74-99) mg/dL POC Glucose (mg/dL) 108 H (75-99) mg/dL Calcium 4.4 L* (8.4-10.2) mg/dL Ionized Calcium Yohan 3.6 L (4.5-5.3) mg/dL ALT 18 L (21-72) U/L Alkaline Phosphatase <20 L (38-126) U/L Total Protein 2.3 L (6.3-8.2) g/dL Albumin 1.2 L (3.5-5.0) g/dL Crossmatch 01/26/19 01/26/19 01/26/19 Range/Units 11:13 11:13 11:53 WBC (3.8-10.6) k/uL RBC (4.30-5.90) m/uL Hgb (13.0-17.5) gm/dL Hct (39.0-53.0) % RDW (11.5-15.5) % Plt Count (150-450) k/uL Lymphocytes # (1.0-4.8) k/uL Lymphocytes # (Manual) (1.0-4.8) k/uL PT (9.0-12.0) sec INR (<1.2) APTT 31.7 H (22.0-30.0) sec ABG pH (7.35-7.45) ABG Total CO2 (19-24) mmol/L ABG O2 Saturation (94-97) % Potassium (3.5-5.1) mmol/L Chloride 110 H (98-107) mmol/L Carbon Dioxide (22-30) mmol/L BUN 23 H (9-20) mg/dL Creatinine (0.66-1.25) mg/dL Glucose 133 H (74-99) mg/dL POC Glucose (mg/dL) 121 H (75-99) mg/dL Calcium 8.1 L (8.4-10.2) mg/dL Ionized Calcium Yohan (4.5-5.3) mg/dL ALT (21-72) U/L Alkaline Phosphatase (38-126) U/L Total Protein (6.3-8.2) g/dL Albumin (3.5-5.0) g/dL Crossmatch 01/26/19 01/26/19 01/26/19 Range/Units 12:59 14:06 14:59 WBC (3.8-10.6) k/uL RBC (4.30-5.90) m/uL Hgb (13.0-17.5) gm/dL Hct (39.0-53.0) % RDW (11.5-15.5) % Plt Count (150-450) k/uL Lymphocytes # (1.0-4.8) k/uL Lymphocytes # (Manual) (1.0-4.8) k/uL PT (9.0-12.0) sec INR (<1.2) APTT (22.0-30.0) sec ABG pH (7.35-7.45) ABG Total CO2 (19-24) mmol/L ABG O2 Saturation (94-97) % Potassium (3.5-5.1) mmol/L Chloride (98-107) mmol/L Carbon Dioxide (22-30) mmol/L BUN (9-20) mg/dL Creatinine (0.66-1.25) mg/dL Glucose (74-99) mg/dL POC Glucose (mg/dL) 163 H 187 H 203 H (75-99) mg/dL Calcium (8.4-10.2) mg/dL Ionized Calcium Yohan (4.5-5.3) mg/dL ALT (21-72) U/L Alkaline Phosphatase (38-126) U/L Total Protein (6.3-8.2) g/dL Albumin (3.5-5.0) g/dL Crossmatch 01/26/19 01/26/19 01/26/19 Range/Units 16:08 17:21 18:03 WBC (3.8-10.6) k/uL RBC (4.30-5.90) m/uL Hgb (13.0-17.5) gm/dL Hct (39.0-53.0) % RDW (11.5-15.5) % Plt Count (150-450) k/uL Lymphocytes # (1.0-4.8) k/uL Lymphocytes # (Manual) (1.0-4.8) k/uL PT (9.0-12.0) sec INR (<1.2) APTT (22.0-30.0) sec ABG pH (7.35-7.45) ABG Total CO2 (19-24) mmol/L ABG O2 Saturation (94-97) % Potassium (3.5-5.1) mmol/L Chloride (98-107) mmol/L Carbon Dioxide (22-30) mmol/L BUN (9-20) mg/dL Creatinine (0.66-1.25) mg/dL Glucose (74-99) mg/dL POC Glucose (mg/dL) 175 H 143 H 146 H (75-99) mg/dL Calcium (8.4-10.2) mg/dL Ionized Calcium Yohan (4.5-5.3) mg/dL ALT (21-72) U/L Alkaline Phosphatase (38-126) U/L Total Protein (6.3-8.2) g/dL Albumin (3.5-5.0) g/dL Crossmatch 01/26/19 01/26/19 01/26/19 Range/Units 19:03 20:05 20:33 WBC (3.8-10.6) k/uL RBC 2.30 L (4.30-5.90) m/uL Hgb 7.1 L (13.0-17.5) gm/dL Hct 20.1 L (39.0-53.0) % RDW (11.5-15.5) % Plt Count 54 L (150-450) k/uL Lymphocytes # (1.0-4.8) k/uL Lymphocytes # (Manual) (1.0-4.8) k/uL PT (9.0-12.0) sec INR (<1.2) APTT (22.0-30.0) sec ABG pH (7.35-7.45) ABG Total CO2 (19-24) mmol/L ABG O2 Saturation (94-97) % Potassium (3.5-5.1) mmol/L Chloride (98-107) mmol/L Carbon Dioxide (22-30) mmol/L BUN (9-20) mg/dL Creatinine (0.66-1.25) mg/dL Glucose (74-99) mg/dL POC Glucose (mg/dL) 138 H 121 H (75-99) mg/dL Calcium (8.4-10.2) mg/dL Ionized Calcium Yohan (4.5-5.3) mg/dL ALT (21-72) U/L Alkaline Phosphatase (38-126) U/L Total Protein (6.3-8.2) g/dL Albumin (3.5-5.0) g/dL Crossmatch 01/26/19 01/26/19 01/26/19 Range/Units 20:33 20:41 21:56 WBC (3.8-10.6) k/uL RBC (4.30-5.90) m/uL Hgb (13.0-17.5) gm/dL Hct (39.0-53.0) % RDW (11.5-15.5) % Plt Count (150-450) k/uL Lymphocytes # (1.0-4.8) k/uL Lymphocytes # (Manual) (1.0-4.8) k/uL PT (9.0-12.0) sec INR (<1.2) APTT (22.0-30.0) sec ABG pH (7.35-7.45) ABG Total CO2 (19-24) mmol/L ABG O2 Saturation (94-97) % Potassium (3.5-5.1) mmol/L Chloride 108 H (98-107) mmol/L Carbon Dioxide (22-30) mmol/L BUN 23 H (9-20) mg/dL Creatinine (0.66-1.25) mg/dL Glucose 115 H (74-99) mg/dL POC Glucose (mg/dL) 125 H 102 H (75-99) mg/dL Calcium 8.1 L (8.4-10.2) mg/dL Ionized Calcium Yohan (4.5-5.3) mg/dL ALT (21-72) U/L Alkaline Phosphatase 30 L (38-126) U/L Total Protein 4.3 L (6.3-8.2) g/dL Albumin 2.7 L (3.5-5.0) g/dL Crossmatch 01/26/19 01/26/19 01/27/19 Range/Units 22:44 23:56 00:57 WBC (3.8-10.6) k/uL RBC (4.30-5.90) m/uL Hgb (13.0-17.5) gm/dL Hct (39.0-53.0) % RDW (11.5-15.5) % Plt Count (150-450) k/uL Lymphocytes # (1.0-4.8) k/uL Lymphocytes # (Manual) (1.0-4.8) k/uL PT (9.0-12.0) sec INR (<1.2) APTT (22.0-30.0) sec ABG pH (7.35-7.45) ABG Total CO2 (19-24) mmol/L ABG O2 Saturation (94-97) % Potassium (3.5-5.1) mmol/L Chloride (98-107) mmol/L Carbon Dioxide (22-30) mmol/L BUN (9-20) mg/dL Creatinine (0.66-1.25) mg/dL Glucose (74-99) mg/dL POC Glucose (mg/dL) 114 H 126 H 119 H (75-99) mg/dL Calcium (8.4-10.2) mg/dL Ionized Calcium Yohan (4.5-5.3) mg/dL ALT (21-72) U/L Alkaline Phosphatase (38-126) U/L Total Protein (6.3-8.2) g/dL Albumin (3.5-5.0) g/dL Crossmatch 01/27/19 01/27/19 01/27/19 Range/Units 03:52 04:25 04:25 WBC (3.8-10.6) k/uL RBC 2.34 L (4.30-5.90) m/uL Hgb 7.4 L (13.0-17.5) gm/dL Hct 20.8 L (39.0-53.0) % RDW 15.9 H (11.5-15.5) % Plt Count 67 L (150-450) k/uL Lymphocytes # (1.0-4.8) k/uL Lymphocytes # (Manual) 0.57 L (1.0-4.8) k/uL PT (9.0-12.0) sec INR (<1.2) APTT (22.0-30.0) sec ABG pH (7.35-7.45) ABG Total CO2 (19-24) mmol/L ABG O2 Saturation (94-97) % Potassium (3.5-5.1) mmol/L Chloride (98-107) mmol/L Carbon Dioxide (22-30) mmol/L BUN 22 H (9-20) mg/dL Creatinine (0.66-1.25) mg/dL Glucose 138 H (74-99) mg/dL POC Glucose (mg/dL) 106 H (75-99) mg/dL Calcium 8.0 L (8.4-10.2) mg/dL Ionized Calcium Yohan (4.5-5.3) mg/dL ALT (21-72) U/L Alkaline Phosphatase 32 L (38-126) U/L Total Protein 4.6 L (6.3-8.2) g/dL Albumin 3.0 L (3.5-5.0) g/dL Crossmatch 01/27/19 01/27/19 01/27/19 Range/Units 04:42 05:22 05:26 WBC (3.8-10.6) k/uL RBC (4.30-5.90) m/uL Hgb (13.0-17.5) gm/dL Hct (39.0-53.0) % RDW (11.5-15.5) % Plt Count (150-450) k/uL Lymphocytes # (1.0-4.8) k/uL Lymphocytes # (Manual) (1.0-4.8) k/uL PT (9.0-12.0) sec INR (<1.2) APTT (22.0-30.0) sec ABG pH 7.46 H (7.35-7.45) ABG Total CO2 26 H (19-24) mmol/L ABG O2 Saturation 97.7 H (94-97) % Potassium (3.5-5.1) mmol/L Chloride (98-107) mmol/L Carbon Dioxide (22-30) mmol/L BUN (9-20) mg/dL Creatinine (0.66-1.25) mg/dL Glucose (74-99) mg/dL POC Glucose (mg/dL) 139 H 153 H (75-99) mg/dL Calcium (8.4-10.2) mg/dL Ionized Calcium Yohan (4.5-5.3) mg/dL ALT (21-72) U/L Alkaline Phosphatase (38-126) U/L Total Protein (6.3-8.2) g/dL Albumin (3.5-5.0) g/dL Crossmatch 01/27/19 01/27/19 01/27/19 Range/Units 06:58 08:04 08:49 WBC (3.8-10.6) k/uL RBC (4.30-5.90) m/uL Hgb (13.0-17.5) gm/dL Hct (39.0-53.0) % RDW (11.5-15.5) % Plt Count (150-450) k/uL Lymphocytes # (1.0-4.8) k/uL Lymphocytes # (Manual) (1.0-4.8) k/uL PT (9.0-12.0) sec INR (<1.2) APTT (22.0-30.0) sec ABG pH (7.35-7.45) ABG Total CO2 (19-24) mmol/L ABG O2 Saturation (94-97) % Potassium (3.5-5.1) mmol/L Chloride (98-107) mmol/L Carbon Dioxide (22-30) mmol/L BUN (9-20) mg/dL Creatinine (0.66-1.25) mg/dL Glucose (74-99) mg/dL POC Glucose (mg/dL) 108 H 124 H 130 H (75-99) mg/dL Calcium (8.4-10.2) mg/dL Ionized Calcium Yohan (4.5-5.3) mg/dL ALT (21-72) U/L Alkaline Phosphatase (38-126) U/L Total Protein (6.3-8.2) g/dL Albumin (3.5-5.0) g/dL Crossmatch Assessment and Plan Assessment: 1. Multivessel coronary artery disease; - status post three-vessel coronary artery bypass grafting, with VINCENT to LAD, radial arterial graft to the RCA, and saphenous venous graft to the OM, posto perative day # 1 2. Postop ventilator dependent respiratory failure; education finance processor service is following for vent management 3. Acute blood loss anemia; normal outcome of bypass grafting surgery. Patient did have a perforated artery artery, and perforated coronary sinus, unexpected outcomes of bypass grafting surgery - patient continued to have issues with bleeding from the mediastinal tube yesterday- had on and off bleeding with drop in hemoglobin as low as 6.3; given blood products including packed RBC, a total of 4 units. He also received a total of 4 units of fresh frozen plasma 20 units of cryoprecipitate, 5 units of platelets; for concern of ongoing bleed, patient was taken to the operating room and expiration was done and there was no evidence of any ongoing bleeding at a time of the surgical exploration. The patient was brought back to the ICU intubated on a mechanical ventilator 4. Hypertension; stable on Norvasc 2.5 mg daily; metoprolol 25 mg twice a day. Patient has orders for IV hydralazine to be used when necessary for systolic blood pressure greater than 160 5. Hypercholesterolemia; continue with Lipitor 40 mg daily at bedtime 6. DVT prophylaxis; Arixtra 2.5 mg subcu daily CODE STATUS; full code Time with Patient: Greater than 30
--- NOTE | 2019-01-27 16:56 | XR ---
EXAMINATION TYPE: XR chest 1V portable DATE OF EXAM: 01/27/2019 COMPARISON: 01/27/2019 HISTORY: Check tube placement TECHNIQUE: Single frontal view of the chest is obtained. FINDINGS: Endotracheal tube is approximately 3.5 cm from the yannick. There is right jugular catheter with tip in the right pulmonary artery. There are drains over the heart. There is no heart failure. There is no definite pleural effusion. No pneumothorax. Is not clear if there is a nasogastric tube. Exam is limited. IMPRESSION: There is improvement in pulmonary vascular congestion compared to exam earlier today 2 h ours ago. Endotracheal tube in good position.
[2019-01-27 17:14] LABS: ABG Base Excess -5.5 mmol/L; ABG HCO3 20 mmol/L (21-25); ABG Oxygen Saturation 92.5 % (94-97); ABG PCO2 35 mmHg (35-45); ABG PH 7.36 (7.35-7.45); ABG PO2 65 mmHg (83-108); ABG TCO2 21 mmol/L (19-24); Allen Test Performed? Yes
[2019-01-27 17:21] LABS: Glucose,Whole Blood 125 mg/dL (75-99)
[2019-01-27 18:10] LABS: Glucose,Whole Blood 126 mg/dL (75-99)
[2019-01-27 18:13] LABS: HCT 21.8 % (39.0-53.0); HGB 7.7 gm/dL (13.0-17.5); MCH 31.7 pg (25.0-35.0); MCHC 35.4 g/dL (31.0-37.0); MCV 89.6 fL (80.0-100.0); Mean Platelet Volume 9.2; RBC 2.43 m/uL (4.30-5.90); RDW 14.6 % (11.5-15.5); WBC 5.6 k/uL (3.8-10.6)
[2019-01-27 18:26] LABS: Platelet Count 62 k/uL (150-450)
[2019-01-27] MEDS ORDERED: ALBUMIN HUMAN 5% 250 ML in EMPTY BAG 1 BAG IVPB PRN (18:46)
[2019-01-27 18:54] LABS: HCT 22.9 % (39.0-53.0); HGB 8.2 gm/dL (13.0-17.5); MCHC 35.7 g/dL (31.0-37.0); MCV 89.6 fL (80.0-100.0); Mean Platelet Volume 9.4; RBC 2.56 m/uL (4.30-5.90); RDW 14.7 % (11.5-15.5); WBC 6.2 k/uL (3.8-10.6)
[2019-01-27 18:55] LABS: Platelet Count 70 k/uL (150-450)
[2019-01-27 19:04] LABS: Glucose,Whole Blood 122 mg/dL (75-99)
[2019-01-27 19:08] LABS: Calcium 7.9 mg/dL (8.4-10.2)
[2019-01-27 19:57] LABS: Glucose,Whole Blood 125 mg/dL (75-99)
[2019-01-27] MEDS: SENNOSIDES-DOCUSATE SODIUM 1 EACH TAB PO SCH (20:44)
[2019-01-27 21:07] LABS: Glucose,Whole Blood 138 mg/dL (75-99)
[2019-01-27] MEDS ORDERED: SUCCINYLCHOLINE CHLORIDE VIAL 200 MG/10 ML VIAL IV ONE (22:00)
[2019-01-27] MEDS ORDERED: ETOMIDATE 2 MG/ML 10 ML VIAL ONE (22:00)
[2019-01-27] MEDS ORDERED: CHLORHEXIDINE GLUCONATE 15 ML CUP MUCOUS MEM ONE (22:00)
[2019-01-27 22:11] LABS: Glucose,Whole Blood 121 mg/dL (75-99)
[2019-01-27 23:14] LABS: Glucose,Whole Blood 140 mg/dL (75-99)
[2019-01-28] MEDS: HYDROcodone/APAP 5-325MG 1 EACH TAB PO PRN (00:48)
[2019-01-28 01:04] LABS: Glucose,Whole Blood 134 mg/dL (75-99)
[2019-01-28] MEDS ORDERED: FUROSEMIDE 10 MG/ML 4 ML VIAL IV STA (01:31)
[2019-01-28 02:09] LABS: Glucose,Whole Blood 111 mg/dL (75-99)
[2019-01-28] MEDS ORDERED: ACETAMINOPHEN IV (For NPO) 1,000 MG in EMPTY BAG 1 BAG IVPB PRN (02:15)
[2019-01-28] MEDS: NOREPINEPHRINE 4 MG in SODIUM CHLORIDE 0.9% 250 ML IV SCH ×2 (03:29→09:05)
[2019-01-28 04:05] LABS: ABG Base Excess -3.4 mmol/L; ABG HCO3 22 mmol/L (21-25); ABG Oxygen Saturation 93.4 % (94-97); ABG PCO2 35 mmHg (35-45); ABG PO2 66 mmHg (83-108); ABG TCO2 23 mmol/L (19-24)
[2019-01-28 04:07] LABS: Allen Test Performed? no
[2019-01-28] MEDS ORDERED: DOPamine DRIP 800 MG in WATER FOR INJECTION 1 250ML.BAG IV SCH (04:15)
[2019-01-28 04:31] LABS: Glucose,Whole Blood 107 mg/dL (75-99)
[2019-01-28 04:32] LABS: HCT 23.1 % (39.0-53.0); MCH 30.9 pg (25.0-35.0); MCHC 34.4 g/dL (31.0-37.0); MCV 89.7 fL (80.0-100.0); Mean Platelet Volume 9.1; RBC 2.58 m/uL (4.30-5.90); RDW 14.9 % (11.5-15.5); WBC 1.6 k/uL (3.8-10.6)
[2019-01-28 04:34] LABS: Ionized Calcium 4.6 mg/dL (4.5-5.3)
[2019-01-28 04:35] LABS: Platelet Count 66 k/uL (150-450)
[2019-01-28 04:57] LABS: Albumin 2.9 g/dL (3.5-5.0); Calcium 7.9 mg/dL (8.4-10.2); Potassium 3.8 mmol/L (3.5-5.1); Total Bilirubin 1.2 mg/dL (0.2-1.3); Total Protein 4.6 g/dL (6.3-8.2)
[2019-01-28 04:59] LABS: Band Neutrophils % 55 %; Lymphocytes # (M) 0.27 k/uL (1.0-4.8); Metamyelocytes # (M) 0.03 k/uL (0); Metamyelocytes % 2 %; Monocytes # (M) 0.08 k/uL (0-1.0); Neutrophils % (M) 21 %; Nucleated Red Blood Cells 0 /100 WBC (0-0); Total Cells Counted 100
[2019-01-28 05:00] LABS: Poikilocytosis (M) Present
[2019-01-28] MEDS: FUROSEMIDE 100 MG in SODIUM CHLORIDE 0.9% 90 ML IV SCH ×2 (05:00→15:40)
[2019-01-28] MEDS: PROPOFOL 1,000 MG in EMPTY BAG 1 BAG IV SCH ×2 (05:21→10:14)
[2019-01-28] MEDS: DEXTROSE 5% IN WATER 100 ML with AMIODARONE 150 MG IV PRN (05:22)
[2019-01-28] MEDS ORDERED: AMIODARONE 360 MG in DEXTROSE 5% IN WATER 200 ML IV ONE ×2 (05:30)
[2019-01-28] MEDS: LACTATED RINGERS 1,000 ML IV SCH (05:45)
[2019-01-28 06:12] LABS: Glucose,Whole Blood 101 mg/dL (75-99)
[2019-01-28] MEDS: POTASSIUM CHLORIDE 10 MEQ in WATER FOR INJECTION 1 100ML.BAG IVPB SCH ×2 (06:18→08:07)
--- NOTE | 2019-01-28 06:22 | XR ---
EXAM: XR Chest, 1 View CLINICAL HISTORY: Postoperative. TECHNIQUE: Frontal view of the chest. COMPARISON: 01/27/19 at 1631 hrs. FINDINGS: Lungs: Interval increase in perihilar interstitial and airspace opacities, likely due to worsening pulmonary edema. Lung volumes are within normal limits. Left-sided chest tube is unchanged. Pleural space: Unremarkable. No pneumothorax. Heart: Cardiac silhouette is unchanged. Mediastinum: Endotracheal tube, enteric tube and [place] catheter are grossly unchanged in position. Bones/joints: Unremarkable. IMPRESSION: Mildly worsened perihilar pulmonary edema when compared to the prior exam performed yesterday afternoon. Support tubes appear unchanged in position.
[2019-01-28 06:58] LABS: Glucose,Whole Blood 92 mg/dL (75-99)
[2019-01-28] MEDS: IPRATROPIUM-ALBUTEROL 3 ML NEB INHALATION SCH ×3 (07:09→15:33)
[2019-01-28 07:32] LABS: ABG Base Excess -5.1 mmol/L; ABG HCO3 21 mmol/L (21-25); ABG Oxygen Saturation 87.9 % (94-97); ABG PCO2 40 mmHg (35-45); ABG PH 7.33 (7.35-7.45); ABG TCO2 22 mmol/L (19-24)
[2019-01-28 07:36] LABS: ABG PO2 57 mmHg (83-108)
[2019-01-28] MEDS ORDERED: CISATRACURIUM 2 MG/ML 5 ML VIAL IV ONE (07:43)
[2019-01-28] MEDS ORDERED: VANCOMYCIN IV PER PHARMACY 1 EACH MISC MISCELLANE PRN (07:43)
[2019-01-28] MEDS ORDERED: SODIUM CHLORIDE 0.9% 500 ML 500 ML IV ONE (07:48)
[2019-01-28] MEDS ORDERED: CISATRACURIUM 200 MG in SODIUM CHLORIDE 0.9% 180 ML IV SCH (08:00)
[2019-01-28] MEDS ORDERED: PIPERACILLIN-TAZOBACTAM 3.375 GM in SODIUM CHLORIDE 0.9% 100 ML IVPB SCH (08:00)
[2019-01-28 08:34] LABS: ABG Base Excess -6.2 mmol/L; ABG HCO3 21 mmol/L (21-25); ABG Oxygen Saturation 82.1 % (94-97); ABG PCO2 47 mmHg (35-45); ABG PH 7.26 (7.35-7.45); ABG TCO2 22 mmol/L (19-24)
[2019-01-28 08:40] LABS: ABG PO2 53 mmHg (83-108)
[2019-01-28] MEDS ORDERED: VANCOMYCIN 1,750 MG in SODIUM CHLORIDE 0.9% 500 ML 500 ML IVPB ONE (09:00)
[2019-01-28] MEDS: ASPIRIN 81 MG PO SCH (09:03)
[2019-01-28] MEDS: ATORVASTATIN 40 MG TAB PO SCH (09:04)
[2019-01-28] MEDS ORDERED: SODIUM CHLORIDE 0.9% 150 ML with VASOPRESSIN 60 UNIT IV SCH ×2 (09:15)
[2019-01-28] MEDS ORDERED: DEXTROSE 10 % IN WATER 250 ML IV ONE (09:24)
[2019-01-28 09:25] LABS: Glucose,Whole Blood 51 mg/dL (75-99)
[2019-01-28 09:42] LABS: ABG Base Excess -9.5 mmol/L; ABG HCO3 18 mmol/L (21-25); ABG Oxygen Saturation 82.5 % (94-97); ABG PCO2 45 mmHg (35-45); ABG PH 7.22 (7.35-7.45); ABG TCO2 20 mmol/L (19-24)
[2019-01-28 09:50] LABS: ABG PO2 55 mmHg (83-108)
[2019-01-28] MEDS: ARTIFICIAL TEARS-HYPROMELLOSE DROPS 15 ML BTL BOTH EYES SCH ×2 (09:51→11:59)
[2019-01-28] MEDS: METOPROLOL TARTRATE 25 MG TAB PO SCH (09:53)
[2019-01-28 10:02] LABS: Glucose,Whole Blood 191 mg/dL (75-99)
[2019-01-28] MEDS: SODIUM BICARB 8.4% 50 ML SYR (1 MEQ/ML) IV STA ×2 (10:07→12:09)
[2019-01-28 10:19] VITALS: RESP 30
--- NOTE | 2019-01-28 10:57 | ECHOF ---
Referral Reason:assess LV function MEASUREMENTS -------- HEIGHT: 182.9 cm WEIGHT: 84.4 kg BP: 75/53 RVIDd: 4.4 cm (< 3.3) IVSd: 1.5 cm (0.6 - 1.1) LVIDd: 4.7 cm (3.9 - 5.3) LVPWd: 1.3 cm (0.6 - 1.1) IVSs: 1.9 cm LVIDs: 3.5 cm LVPWs: 1.7 cm LA Diam: 3.9 cm (2.7 - 3.8) LAESV Index (A-L): 22.53 ml/m Ao Diam: 3.5 cm (2.0 - 3.7) AV Cusp: 2.4 cm (1.5 - 2.6) MV EXCURSION: 15.965 mm (> 18.000) MV EF SLOPE: 103 mm/s (70 - 150) EPSS: 0.8 cm MV E Kings: 0.73 m/s MV DecT: 134 ms MV A Kings: 0.51 m/s MV E/A Ratio: 1.44 RAP: 5.00 mmHg RVSP: 28.81 mmHg FINDINGS -------- Paced rhythm. This was a technically adequate study. The left ventricular size is normal. There is moderate concentric left ventricular hypertrophy. O verall left ventricular systolic function is severely impaired with, an EF between 20 - 25 %. There is paradoxical/dysynergic septal motion consistent with right ventricular volume overload and/or cristian vated right ventricular end-diastolic pressure. The right ventricle is severely enlarged. Normal LA size by volume 22+/-6 ml/m2. The right atrium is normal in size. Interatrial and interventricular septum intact. Trace to mild aortic regurgitation. Mild mitral regurgitation is present. Moderate to severe tricuspid regurgitation present. There is mild to moderate pulmonary hypertensio n. Echodensity was seen on the RV side of the TV. The aortic root size is normal. Not available at this time. Post CABG There is a small, generalized pericardial effusion present. CONCLUSIONS -------- 1. Paced rhythm. 2. This was a technically adequate study. 3. The left ventricular size is normal. 4. There is moderate concentric left ventricular hypertrophy. 5. Overall left ventricular systolic function is severely impaired with, an EF between 20 - 25 %. 6. There is paradoxical/dysynergic septal motion consistent with right ventricular volume overload an d/or elevated right ventricular end-diastolic pressure. 7. The right ventricle is severely enlarged. 8. Normal LA size by volume 22+/-6 ml/m2. 9. The right atrium is normal in size. 10. Interatrial and interventricular septum intact. 11. Trace to mild aortic regurgitation. 12. Mild mitral regurgitation is present. 13. Moderate to severe tricuspid regurgitation present. 14. There is mild to moderate pulmonary hypertension. 15. Echodensity was seen on the RV side of the TV. 16. The aortic root size is normal. 17. Not available at this time. Post CABG 18. There is a small, generalized pericardial effusion present. HAND PRINTED CIRCUIT BOARD ASSEMBLER: Renetta Kahn RDCS
[2019-01-28 11:07] LABS: Glucose,Whole Blood 132 mg/dL (75-99)
[2019-01-28] MEDS ORDERED: SODIUM BICARB 8.4% 50 ML SYR (1 MEQ/ML) IV STA ×4 (11:27→13:15)
--- NOTE | 2019-01-28 11:31 | P.PN ---
Subjective Progress Note Date: 01/28/19 Principal diagnosis: Multivessel coronary artery disease, status post three-vessel coronary artery bypass grafting with VINCENT to LAD, radial artery graft to RCA, and saphenous vein graft to obtuse marginal postoperative day #3. This is a 78-year-old white male patient with past medical history significant for hypertension, hypercholesterolemia, history of sleep apnea, abdominal aortic aneurysm with surgical repair in 2017, history of right-sided lung cancer status post resection in 2017 followed by chemotherapy and radiation therapy, past history of tobacco use currently in remission, moderate alcohol use, was diagnosed with multivessel coronary artery disease and moderate mitral regurgitation and was referred to cardiothoracic surgery for intervention. He had a heart catheterization on 11/02/2018 which revealed a 60% lesion in the left main artery, occlusion in the midportion of the left circumflex artery, mild disease in the LAD, there was a 99% critical lesion in the mid right coronary artery. Echocardiogram revealed ejection fraction of 55%, there was moderate mitral regurg with mild mitral annular calcification. On 01/25/2019 patient had three-vessel bypass with VINCENT to LAD, radial artery graft to the RCA, and saphenous graft to the OM, Intra-operatively patient apparently had a perforated pulmonary artery and the coronary sinus requiring repair, overall patient did well, he received Cell Saver, no blood products Intra-Op, did receive 4 to have liters of crystalloids, 1.5 L of albumin. We seen the patient in the ICU in the immediate postoperative period, he is intubated on mechanical ventilator on IMV mode with a rate of 10, tidal volume of 550, FiO2 100% and PEEP of 5, as was switched over to assist control mode of ventilation with a rate of 12, same tidal volume, same FiO2, and PEEP was up to 10. Postop blood gases are pending. Patient had put out 700 mL of sanguinous output from the mediastinal chest tube, left pleural chest tube is relatively dry. He is receiving 5 units of platelets, 2 units of FFP, 2 of albumin, he was given a dose of DDAVP, and 10 units of cryoprecipitate. Postop blood work showed a white blood cell count of 5.8, hemoglobin is 8.3, INR is 1.5, sodium is 139, potassium is 4.2, chloride is 108, CO2 is 26, BUN is 23, creatinine 0.9. Maintenance IV fluids of lactated Ringer's at a rate of 50, no pressors. No sedation, PA pressures 27/14, with a CVP of 4, cardiac output and cardiac index of 4.1 and 2.1 respectively. On 01/26/2019 the patient remains intubated on a mechanical ventilator. The patient continued to have issues with bleeding from the mediastinal tube yesterday. Throughout the night, the patient had on and off bleeding with drop in hemoglobin as low as 6.3 and the patient accordingly was given blood products including packed RBC, a total of 4 units. He also received a total of 4 units of fresh frozen plasma 20 units of cryoprecipitate, 5 units of platelets. Note that he was showing signs of coagulopathy which probably complicated his bleeding further. Following all this, the morning hemoglobin was at 6.3. There was still concern of ongoing bleed and for that reason the patient was taken to the operating room and expiration was done and there was no evidence of any juvenal oing bleeding at a time of the surgical exploration. The patient was brought back to the ICU intubated on a mechanical ventilator. At the time of arrival, hemoglobin came back at 7.4 and his cardiac output was low initially with an index of 1.5 and the patient accordingly was given albumin 5% 2, a total of 500 mL and subsequently the patient's cardiac output and index improved. He is still producing adequate amount of urine output. No significant bleeding from his mediastinal or pleural chest tube in the time being. Note that he also developed some hives following his packed RBC transfusion and the patient was given Benadryl. At this point in time, the patient remains intubated on a m [employer] ventilator. His assist-control mode of ventilation with a rate of 20 with tidal volume of 550 and FiO2 of 40% with a PEEP of 5. The most recent blood gases showed a pH of 7.44 with a pCO2 of 40 and pO2 of 396 and this was done and FiO2 of 100%. Accordingly, the FiO2 was brought back down to 40%. His chest x-ray shows routine postsurgical changes with adequate positioning of the ET tube, chest tubes and Astatula-Belinda catheter. No evidence of any pneumothorax. No evidence of any pneumonia. No evidence of any ulnar infiltrates or effusions. The most recent quite shows an INR of 1.1 with a PT of 11.5 and a PTT of 31.7 and the average 11 is at 20 on 22. The patient is producing daniel quate amount of urine output. His cardiac rhythmat the rate of 90. He did have a bout of atrial fibrillation last night placed on amiodarone which is currently running at 0.5 mg per minute. He is interested rhythm for now is sinus. He is on no pressors. He is off the Cardizem drip. The blood pressure subsequently came up after this consideration of Cardizem and adequate resuscitation. The p atient was started on Catapres for blood pressure control. He is also on insulin for blood sugar control. Sedation is with Precedex On today's evaluation of 01/27/2019 the patient remains intubated on a mechanical ventilator. The patient is postop day #2. The patient has undergone three-vessel bypass surgery. He had a complicated postoperative course. He required a mediastinal reexploration for possible bleeding and that that turning machine set up operator to be negative. Over the past 24 hours, the patient continued to have issues with blood pressure, atrial fibrillation, low hemoglobin and he was having difficulties in coming off the sedation. For that reason no extubation was done. He was switched to Precedex which was causing significant hemodynamic changes including hypotension. Ultimately had to be placed back on propofol which was able to control his hemodynamics and sedation level much more effectively. Once coming off the sedation the patient does not show adequate response. He would grimace to painful stimulation. He may track sometimes yet he is not following any commands. I was told by the surgeon that may be there is an underlying component of dementia complicating his picture. This morning he was in the 40 mics of propofol. He was on norepinephrine infusion at 1 g per minute. His cardiac output was at 5.2 with an index of 3.7 with a pulmonary artery pressure of 33/17 and a CVP of 14. He is on a mechanical ventilator within assist-control mode at the rate of 20 with tidal volume of 550 and FiO2 of 40% with a PEEP of 5. Blood gas showing a pH of 7.46 with a pCO2 of 35 and a pO2 of 88. The patient was in normal sinus rhythm with occasional PACs and PVCs. He is on amiodarone infusion running at 0.5 mg per minute as maintenance. He is chest tubes are all in place. The drainage is serosanguineous. No active bleeding. Mediastinal chest tubes have been around 80 mL over the past 8 hours and the left-sided chest tube is draining around 1 densities over the past 8 hours. The patient is afebrile. The patient is a chest x-ray this morning that showed no acute abnormalities and the findings and essentially postsurgical in nature with tubes are all in place. His hemoglobin is at 7.4. Platelet count is at 67. Patient was reevaluated today on 01/28/2019, he is postoperative day #3. However the patient was extubated yesterday, and 4 hours later his pulmonary condition deteriorated significantly, patient had to be reintubated, and even on 100% FiO2 and PEEP of 16, respiratory rate of 30 and tidal volume of 550, his ABG is extremely poor showing profound hypoxemia, slight hypercapnia, and combined metabolic and respiratory acidosis. Patient has been hypotensive, behaving clinically like septic, and his hypotension is requiring multiple drips in cluding norepinephrine, vasopressin, and dopamine. His drips include also Nimbex, propofol, amiodarone, and vasopressin was added by thoracic surgery. Patient developed pancytopenia with WBC count of 1.6 hemoglobin is 8 platelets are 66,000, and significant bandemia of 55%. His echocardiogram showed impaired ejection fraction of 20-25%, there is also paradoxical septal motion consistent with right ventricular volume overload and or elevated right ventricular end- diastolic pressure. Right ventricle is severely enlarged there is mild to moderate pulmonary hypertension small pericardial effusion. Moderate to severe tricuspid regurgitation was also noted. Patient is barely oxygenating in spite of high FiO2 and high PEEP. Chest x-ray showed mildly worsened perihilar pulmonary edema compared to previous examination yesterday. This is likely cardiogenic, however the possibility of noncardiogenic pulmonary edema and acute lung injury is not entirely ruled out. But based on the echocardiogram findings, this is cardiogenic pulmonary edema unless proven otherwise. Objective - Vital Signs Vital signs: Vital Signs Temp 98.8 F 01/28/19 08:00 Pulse 112 H 01/28/19 10:15 Resp 30 H 01/28/19 10:15 BP 82/59 01/28/19 10:00 Pulse Ox 82 L 01/28/19 08:15 Intake & Output 01/27/19 01/28/19 01/28/19 18:59 06:59 18:59 Intake Total 4611.431 4534.794 1714.793 Output Total 440 3396 48 Balance 1465.499 -7086.447 0669.793 Weight 84.8 kg Intake: IV 3631 708 7401 .9NS Pressure Bag 108 108 36 Albumin Human 5% 250 ml 250 250 In Empty Bag 1 bag @ 250 mls/hr IVPB Q1HR PRN Rx#: [id number] Lactated Ringers 1,000 ml 550 290 120 @ 20 mls/hr IV .Q24H [facility]AD Rx#:[id number] Potassium Chloride 10 meq 200 In Water For Injection 1 100ml.bag @ 100 mls/hr IVPB Q1H [facility] Rx#: [id number] Potassium Chloride 20 meq 100 In Water For Injection 1 100ml.bag @ 50 mls/hr IVPB Q2H [facility] Rx#: [id number] Sodium Chloride 0.9% 500 1000 ml 500 ml @ 999 mls/hr IV .Q31M ONE Rx#:[id number] cardiac output 120 180 90 ceFAZolin 2 gm In Sodium 50 50 Chloride 0.9% 50 ml @ 100 mls/hr IVPB Q8HR [facility]AD Rx# :[id number] Intake, IV Titration 417.499 630.794 268.793 Amount Cisatracurium 200 mg In 6.106 Sodium Chloride 0.9% 180 ml @ 1 MCG/KG/MIN 5.088 mls/hr IV .Q24H [facility] Rx#: [id number] Furosemide 100 mg In 28.5 Sodium Chloride 0.9% 90 ml @ 10 MG/HR 10 mls/hr IV .Q10H [facility] Rx#: [id number] Insulin Regular 100 unit 2.925 2.425 In Sodium Chloride 0.9% 100 ml @ Per Protocol IV .Q0M [facility] Rx#:[id number] Lactated Ringers 1,000 ml 60 @ 20 mls/hr IV .Q24H [facility] Rx#:[id number] Norepinephrine 4 mg In 334.614 425.275 151.737 Sodium Chloride 0.9% 250 ml @ 0.04 MCG/KG/MIN 11. 06 mls/hr IV .W07Q03M [facility] Rx#:[id number] Propofol 1,000 mg In 79.960 143.094 82.45 Empty Bag 1 bag @ Titrate IV .Q0M [facility] Rx#: [id number] Blood Product 310 Rc As-1 Unit 310 [id number] Output: Chest Tube Drainage 220 210 20 Left Pleural 120 100 10 Mediastinal Chest Tube 100 110 10 Drainage 35 20 Left arm 15 10 Right Lower Calf 20 10 Urine 185 3166 28 Other: Voiding Method Indwelling Catheter Indwelling Catheter Indwelling Catheter ABP, PAP, CO, CI - Last Documented Arterial Blood Pressure 98/62 Pulmonary Artery Pressure 42/29 Cardiac Output 4.4 Cardiac Index 2.3 - Exam Physical Exam: Revealed a 78-year-old white male sedated, paralyzed, on mechanical ventilation, on multiple drips including Nimbex. Head: Atraumatic, normocephalic. HEENT:[Neck is supple.] [No neck masses.] [No thyromegaly.] [No JVD.] Endotrach eal tube is intact. Orogastric tube is also intact. Chest: [Diminished breath sounds at the bases crackles and rhonchi noted bilaterally. Mid sternal incision is clean dry and intact. Left-sided chest tube is noted. Cardiac Exam: [Normal S1 and S2, no S3 gallop, no murmur.] Abdomen: [Soft, nontender, no megaly, no rebound, no guarding, diminished bowel sounds. Extremities: [No clubbing, no edema, no cyanosis.] Neurological Exam: Cannot be assessed, patient is sedated, paralyzed, on Nimbex. Psychiatric: Could not be assessed. Skin: No rashes. Spine: No scoliosis or deformity. Lymphatics: No lymphadenopathy. - Labs CBC & Chem 7: 01/28/19 04:15 01/28/19 04:15 Labs: Abnormal Lab Results - Last 24 Hours (Table) 01/17/19 01/27/19 01/27/19 Range/Units 09:00 12:01 12:46 WBC (3.8-10.6) k/uL RBC (4.30-5.90) m/uL Hgb (13.0-17.5) gm/dL Hct (39.0-53.0) % Plt Count (150-450) k/uL Neutrophils # (Manual) (1.3-7.7) k/uL Lymphocytes # (Manual) (1.0-4.8) k/uL Metamyelocytes # (Man) (0) k/uL ABG pH (7.35-7.45) ABG pCO2 34 L (35-45) mmHg ABG pO2 69 L (83-108) mmHg ABG HCO3 (21-25) mmol/L ABG O2 Saturation 93.9 L (94-97) % ABG Lactic Acid (0.5-1.6) mmol/L Chloride (98-107) mmol/L Carbon Dioxide (22-30) mmol/L BUN (9-20) mg/dL Creatinine (0.66-1.25) mg/dL Glucose (74-99) mg/dL POC Glucose (mg/dL) 115 H (75-99) mg/dL Calcium (8.4-10.2) mg/dL Total Protein (6.3-8.2) g/dL Albumin (3.5-5.0) g/dL Crossmatch See Detail 01/27/19 01/27/19 01/27/19 Range/Units 14:07 15:06 16:00 WBC (3.8-10.6) k/uL RBC (4.30-5.90) m/uL Hgb (13.0-17.5) gm/dL Hct (39.0-53.0) % Plt Count (150-450) k/uL Neutrophils # (Manual) (1.3-7.7) k/uL Lymphocytes # (Manual) (1.0-4.8) k/uL Metamyelocytes # (Man) (0) k/uL ABG pH (7.35-7.45) ABG pCO2 (35-45) mmHg ABG pO2 (83-108) mmHg ABG HCO3 (21-25) mmol/L ABG O2 Saturation (94-97) % ABG Lactic Acid (0.5-1.6) mmol/L Chloride (98-107) mmol/L Carbon Dioxide (22-30) mmol/L BUN (9-20) mg/dL Creatinine (0.66-1.25) mg/dL Glucose (74-99) mg/dL POC Glucose (mg/dL) 124 H 127 H 124 H (75-99) mg/dL Calcium (8.4-10.2) mg/dL Total Protein (6.3-8.2) g/dL Albumin (3.5-5.0) g/dL Crossmatch 01/27/19 01/27/19 01/27/19 Range/Units 17:01 17:10 18:00 WBC (3.8-10.6) k/uL RBC 2.43 L (4.30-5.90) m/uL Hgb 7.7 L (13.0-17.5) gm/dL Hct 21.8 L (39.0-53.0) % Plt Count 62 L (150-450) k/uL Neutrophils # (Manual) (1.3-7.7) k/uL Lymphocytes # (Manual) (1.0-4.8) k/uL Metamyelocytes # (Man) (0) k/uL ABG pH (7.35-7.45) ABG pCO2 (35-45) mmHg ABG pO2 65 L (83-108) mmHg ABG HCO3 20 L (21-25) mmol/L ABG O2 Saturation 92.5 L (94-97) % ABG Lactic Acid (0.5-1.6) mmol/L Chloride (98-107) mmol/L Carbon Dioxide (22-30) mmol/L BUN (9-20) mg/dL Creatinine (0.66-1.25) mg/dL Glucose (74-99) mg/dL POC Glucose (mg/dL) 125 H (75-99) mg/dL Calcium (8.4-10.2) mg/dL Total Protein (6.3-8.2) g/dL Albumin (3.5-5.0) g/dL Crossmatch 01/27/19 01/27/19 01/27/19 Range/Units 18:09 18:45 18:45 WBC (3.8-10.6) k/uL RBC 2.56 L (4.30-5.90) m/uL Hgb 8.2 L (13.0-17.5) gm/dL Hct 22.9 L (39.0-53.0) % Plt Count 70 L (150-450) k/uL Neutrophils # (Manual) (1.3-7.7) k/uL Lymphocytes # (Manual) (1.0-4.8) k/uL Metamyelocytes # (Man) (0) k/uL ABG pH (7.35-7.45) ABG pCO2 (35-45) mmHg ABG pO2 (83-108) mmHg ABG HCO3 (21-25) mmol/L ABG O2 Saturation (94-97) % ABG Lactic Acid (0.5-1.6) mmol/L Chloride 109 H (98-107) mmol/L Carbon Dioxide 20 L (22-30) mmol/L BUN 28 H (9-20) mg/dL Creatinine 1.58 H (0.66-1.25) mg/dL Glucose 121 H (74-99) mg/dL POC Glucose (mg/dL) 126 H (75-99) mg/dL Calcium 7.9 L (8.4-10.2) mg/dL Total Protein (6.3-8.2) g/dL Albumin (3.5-5.0) g/dL Crossmatch 01/27/19 01/27/19 01/27/19 Range/Units 19:01 19:56 21:05 WBC (3.8-10.6) k/uL RBC (4.30-5.90) m/uL Hgb (13.0-17.5) gm/dL Hct (39.0-53.0) % Plt Count (150-450) k/uL Neutrophils # (Manual) (1.3-7.7) k/uL Lymphocytes # (Manual) (1.0-4.8) k/uL Metamyelocytes # (Man) (0) k/uL ABG pH (7.35-7.45) ABG pCO2 (35-45) mmHg ABG pO2 (83-108) mmHg ABG HCO3 (21-25) mmol/L ABG O2 Saturation (94-97) % ABG Lactic Acid (0.5-1.6) mmol/L Chloride (98-107) mmol/L Carbon Dioxide (22-30) mmol/L BUN (9-20) mg/dL Creatinine (0.66-1.25) mg/dL Glucose (74-99) mg/dL POC Glucose (mg/dL) 122 H 125 H 138 H (75-99) mg/dL Calcium (8.4-10.2) mg/dL Total Protein (6.3-8.2) g/dL Albumin (3.5-5.0) g/dL Crossmatch 01/27/19 01/27/19 01/28/19 Range/Units 22:10 23:13 01:02 WBC (3.8-10.6) k/uL RBC (4.30-5.90) m/uL Hgb (13.0-17.5) gm/dL Hct (39.0-53.0) % Plt Count (150-450) k/uL Neutrophils # (Manual) (1.3-7.7) k/uL Lymphocytes # (Manual) (1.0-4.8) k/uL Metamyelocytes # (Man) (0) k/uL ABG pH (7.35-7.45) ABG pCO2 (35-45) mmHg ABG pO2 (83-108) mmHg ABG HCO3 (21-25) mmol/L ABG O2 Saturation (94-97) % ABG Lactic Acid (0.5-1.6) mmol/L Chloride (98-107) mmol/L Carbon Dioxide (22-30) mmol/L BUN (9-20) mg/dL Creatinine (0.66-1.25) mg/dL Glucose (74-99) mg/dL POC Glucose (mg/dL) 121 H 140 H 134 H (75-99) mg/dL Calcium (8.4-10.2) mg/dL Total Protein (6.3-8.2) g/dL Albumin (3.5-5.0) g/dL Crossmatch 01/28/19 01/28/19 01/28/19 Range/Units 02:07 04:03 04:15 WBC 1.6 L (3.8-10.6) k/uL RBC 2.58 L (4.30-5.90) m/uL Hgb 8.0 L (13.0-17.5) gm/dL Hct 23.1 L (39.0-53.0) % Plt Count 66 L (150-450) k/uL Neutrophils # (Manual) 1.20 L (1.3-7.7) k/uL Lymphocytes # (Manual) 0.27 L (1.0-4.8) k/uL Metamyelocytes # (Man) 0.03 H (0) k/uL ABG pH (7.35-7.45) ABG pCO2 (35-45) mmHg ABG pO2 66 L (83-108) mmHg ABG HCO3 (21-25) mmol/L ABG O2 Saturation 93.4 L (94-97) % ABG Lactic Acid (0.5-1.6) mmol/L Chloride (98-107) mmol/L Carbon Dioxide (22-30) mmol/L BUN (9-20) mg/dL Creatinine (0.66-1.25) mg/dL Glucose (74-99) mg/dL POC Glucose (mg/dL) 111 H (75-99) mg/dL Calcium (8.4-10.2) mg/dL Total Protein (6.3-8.2) g/dL Albumin (3.5-5.0) g/dL Crossmatch 01/28/19 01/28/19 01/28/19 Range/Units 04:15 04:17 06:11 WBC (3.8-10.6) k/uL RBC (4.30-5.90) m/uL Hgb (13.0-17.5) gm/dL Hct (39.0-53.0) % Plt Count (150-450) k/uL Neutrophils # (Manual) (1.3-7.7) k/uL Lymphocytes # (Manual) (1.0-4.8) k/uL Metamyelocytes # (Man) (0) k/uL ABG pH (7.35-7.45) ABG pCO2 (35-45) mmHg ABG pO2 (83-108) mmHg ABG HCO3 (21-25) mmol/L ABG O2 Saturation (94-97) % ABG Lactic Acid (0.5-1.6) mmol/L Chloride 109 H (98-107) mmol/L Carbon Dioxide 20 L (22-30) mmol/L BUN 32 H (9-20) mg/dL Creatinine 1.72 H (0.66-1.25) mg/dL Glucose 101 H (74-99) mg/dL POC Glucose (mg/dL) 107 H 101 H (75-99) mg/dL Calcium 7.9 L (8.4-10.2) mg/dL Total Protein 4.6 L (6.3-8.2) g/dL Albumin 2.9 L (3.5-5.0) g/dL Crossmatch 01/28/19 01/28/19 01/28/19 Range/Units 07:10 07:30 08:28 WBC (3.8-10.6) k/uL RBC (4.30-5.90) m/uL Hgb (13.0-17.5) gm/dL Hct (39.0-53.0) % Plt Count (150-450) k/uL Neutrophils # (Manual) (1.3-7.7) k/uL Lymphocytes # (Manual) (1.0-4.8) k/uL Metamyelocytes # (Man) (0) k/uL ABG pH 7.33 L 7.26 L (7.35-7.45) ABG pCO2 47 H (35-45) mmHg ABG pO2 57 L* 53 L* (83-108) mmHg ABG HCO3 (21-25) mmol/L ABG O2 Saturation 87.9 L 82.1 L (94-97) % ABG Lactic Acid 3.1 H* (0.5-1.6) mmol/L Chloride (98-107) mmol/L Carbon Dioxide (22-30) mmol/L BUN (9-20) mg/dL Creatinine (0.66-1.25) mg/dL Glucose (74-99) mg/dL POC Glucose (mg/dL) (75-99) mg/dL Calcium (8.4-10.2) mg/dL Total Protein (6.3-8.2) g/dL Albumin (3.5-5.0) g/dL Crossmatch 01/28/19 01/28/19 01/28/19 Range/Units 09:23 09:34 09:58 WBC (3.8-10.6) k/uL RBC (4.30-5.90) m/uL Hgb (13.0-17.5) gm/dL Hct (39.0-53.0) % Plt Count (150-450) k/uL Neutrophils # (Manual) (1.3-7.7) k/uL Lymphocytes # (Manual) (1.0-4.8) k/uL Metamyelocytes # (Man) (0) k/uL ABG pH 7.22 L (7.35-7.45) ABG pCO2 (35-45) mmHg ABG pO2 55 L* (83-108) mmHg ABG HCO3 18 L (21-25) mmol/L ABG O2 Saturation 82.5 L (94-97) % ABG Lactic Acid (0.5-1.6) mmol/L Chloride (98-107) mmol/L Carbon Dioxide (22-30) mmol/L BUN (9-20) mg/dL Creatinine (0.66-1.25) mg/dL Glucose (74-99) mg/dL POC Glucose (mg/dL) 51 L 191 H (75-99) mg/dL Calcium (8.4-10.2) mg/dL Total Protein (6.3-8.2) g/dL Albumin (3.5-5.0) g/dL Crossmatch 01/28/19 Range/Units 11:05 WBC (3.8-10.6) k/uL RBC (4.30-5.90) m/uL Hgb (13.0-17.5) gm/dL Hct (39.0-53.0) % Plt Count (150-450) k/uL Neutrophils # (Manual) (1.3-7.7) k/uL Lymphocytes # (Manual) (1.0-4.8) k/uL Metamyelocytes # (Man) (0) k/uL ABG pH (7.35-7.45) ABG pCO2 (35-45) mmHg ABG pO2 (83-108) mmHg ABG HCO3 (21-25) mmol/L ABG O2 Saturation (94-97) % ABG Lactic Acid (0.5-1.6) mmol/L Chloride (98-107) mmol/L Carbon Dioxide (22-30) mmol/L BUN (9-20) mg/dL Creatinine (0.66-1.25) mg/dL Glucose (74-99) mg/dL POC Glucose (mg/dL) 132 H (75-99) mg/dL Calcium (8.4-10.2) mg/dL Total Protein (6.3-8.2) g/dL Albumin (3.5-5.0) g/dL Crossmatch Microbiology - Last 24 Hours (Table) 01/27/19 16:40 Gram Stain - Preliminary Sputum Sputum Culture - Preliminary Assessment and Plan Assessment: Impression: 1 acute hypoxic respiratory failure, secondary to severe LV dysfunction and most likely cardiogenic pulmonary edema although the possibility of noncardiogenic pulmonary edema and acute lung injury is not entirely ruled out. 2 multivessel coronary artery disease status post CABG postoperative day #3. 3 acute blood loss anemia with perforated pulmonary artery and perforated coronary sinus, and expected outcome of bypass surgery, coagulopathy was reve rsed. 4 hypotension secondary to severe LV dysfunction although the possibility of sepsis and septic shock is not entirely ruled out. 5 paroxysmal atrial fibrillation, remains on amiodarone. 6 history of abdominal aortic aneurysm repair in 2017 7 history of lung cancer and previous right upper lobectomy followed by chemo and radiation therapy 8 former smoker 9 history of hypertension 10 history of dementia 11 history of hyperlipidemia. 12 acute kidney injury secondary to acute tubular necrosis and hypotension. Recommendation: All the medications were reviewed, echocardiogram was reviewed, chest x-ray was reviewed, had a long discussion with the surgeon on the case regarding his condition, overall picture seems to be very poor, patient is barely oxygenating in spite of 100% FiO2 and in spite of high PEEP, also in spite of paralysis utilizing Nimbex. Sodium bicarb will be added. In the meantime we'll continue norepinephrine, vasopressin, continue broad-spectrum antibiotics including Zosyn and vancomycin. Patient obviously developed acute kidney injury, and urine output is extremely poor at present. This could very well be acute tubular necrosis related. The overall clinical picture looks very poor, patient obviously has extremely poor prognosis, discussed his condition with Dr. Franco at bedside. We will continue to follow. Critical care time is 45 minutes Time with Patient: Greater than 30
[2019-01-28] MEDS ORDERED: DOBUTamine DRIP 500 MG in DEXTROSE/WATER 1 250ML.BAG IV SCH (11:45)
[2019-01-28 11:55] LABS: Glucose,Whole Blood 127 mg/dL (75-99)
[2019-01-28 11:56] LABS: ABG Base Excess -8.6 mmol/L; ABG HCO3 20 mmol/L (21-25); ABG Oxygen Saturation 76.3 % (94-97); ABG PCO2 52 mmHg (35-45); ABG TCO2 21 mmol/L (19-24)
[2019-01-28] MEDS: FONDAPARINUX 2.5 MG/0.5 ML SYRINGE SQ SCH (11:58)
[2019-01-28] MEDS: PANTOPRAZOLE 40 MG/10 ML VIAL IVP SCH (11:58)
[2019-01-28] MEDS ORDERED: AMIODARONE 300 MG in DEXTROSE 5% IN WATER 250 ML IV SCH ×2 (12:00)
[2019-01-28] MEDS ORDERED: DEXTROSE 5% IN WATER 100 ML with AMIODARONE 150 MG IV ONE (12:00)
[2019-01-28] MEDS ORDERED: amLODIPine 2.5 MG TAB PO SCH (12:00)
[2019-01-28] MEDS ORDERED: DEXTROSE 5% IN WATER 1,000 ML with SODIUM BICARB (1 MEQ/ML) 150 ML IV SCH ×4 (12:00)
[2019-01-28 12:03] LABS: ABG PH 7.19 (7.35-7.45); ABG PO2 50 mmHg (83-108)
[2019-01-28] MEDS ORDERED: EPINEPHrine 4 MG in DEXTROSE 5% IN WATER 250 ML IV SCH ×2 (12:15)
[2019-01-28] MEDS ORDERED: HYDROCORTISONE SUCCINATE 100 MG/2 ML VIAL IV STA (12:15)
[2019-01-28 12:18] LABS: Anisocytosis Slight; HCT 24.7 % (39.0-53.0); HGB 8.5 gm/dL (13.0-17.5); MCH 32.2 pg (25.0-35.0); MCHC 34.4 g/dL (31.0-37.0); MCV 93.5 fL (80.0-100.0); Mean Platelet Volume 10.4; RBC 2.64 m/uL (4.30-5.90); RDW 16.4 % (11.5-15.5); WBC 2.1 k/uL (3.8-10.6)
[2019-01-28 12:22] LABS: Albumin 2.5 g/dL (3.5-5.0); Calcium 6.9 mg/dL (8.4-10.2); Potassium 4.6 mmol/L (3.5-5.1); Total Bilirubin 1.6 mg/dL (0.2-1.3); Total Protein 4.2 g/dL (6.3-8.2)
[2019-01-28 12:24] LABS: Platelet Count 83 k/uL (150-450)
[2019-01-28 12:48] LABS: ABG Base Excess 1.1 mmol/L; ABG HCO3 28 mmol/L (21-25); ABG Oxygen Saturation 82.5 % (94-97); ABG PCO2 59 mmHg (35-45); ABG PH 7.29 (7.35-7.45); ABG TCO2 30 mmol/L (19-24)
[2019-01-28 12:55] LABS: ABG PO2 52 mmHg (83-108)
[2019-01-28 13:36] LABS: ABG Base Excess -6.1 mmol/L; ABG HCO3 23 mmol/L (21-25); ABG Oxygen Saturation 38.2 % (94-97); ABG PCO2 62 mmHg (35-45); ABG TCO2 24 mmol/L (19-24)
[2019-01-28 13:39] LABS: ABG PH 7.17 (7.35-7.45); ABG PO2 27 mmHg (83-108)
[2019-01-28 13:43] LABS: ABG Base Excess -5.1 mmol/L; ABG HCO3 24 mmol/L (21-25); ABG Oxygen Saturation 47.2 % (94-97); ABG PCO2 65 mmHg (35-45); ABG TCO2 26 mmol/L (19-24)
[2019-01-28 13:44] LABS: ABG PH 7.17 (7.35-7.45); ABG PO2 31 mmHg (83-108)
[2019-01-28 13:56] VITALS: TEMP 97.5
--- NOTE | 2019-01-28 14:09 | P.PN ---
<Favio Novak - Last Filed: 01/28/19 14:08> Subjective Progress Note Date: 01/28/19 Principal diagnosis: Multivessel coronary artery disease, moderate mitral valve regurgitation with preserved ejection fraction. Past medical history significant for hypertension, hypercholesterolemia, history of obstructive sleep apnea, abdominal aortic aneurysm status post aortobifem surgery, remote history of nicotine dependence and history of right-sided lung cancer, status post surgical intervention as well as chemotherapy and radiation therapy in 2017. POD #2 coronary artery bypass grafting 3 vessels with placement of his left internal mammary artery to left anterior setting coronary artery, radial artery to the posterior descending coronary artery, a reverse greater saphenous vein graft to the obtuse marginal coronary artery. Endoscopic vein harvest right greater saphenous vein. Endoscopic harvest left radial artery. Intraoperative transesophageal echocardiogram, epi-aortic ultrasound and graft flow measurements using the [employer] system. POD #1 mediastinal exploration. Postoperative acute blood loss anemia, an unexpected but potential outcome due to cardiopulmonary bypass and hemodilution. Postoperative paroxysmal atrial fibrillation, an unexpected but potential outcome of surgery. Acute kidney injury secondary to acute tubular necrosis and hypotension. Postoperative hypotension secondary to severe LV dysfunction and possibly a component of septic shock. The patient remains in the intensive care unit, he is sedated on a propofol drip. The patient was extubated yesterday at around 11:15 AM and unfortunately decompensated and required reintubation around 4:30 yesterday afternoon. This morning he hypotensive requiring norepinephrine drip at 16 mcg/m. his laboratory results this morning show a WBC count of 1.6 with a positive bandemia of 55%, BUN is 32, creatinine is 1.72. ABG results this morning show a pH of 7.40, pCO2 35, pO2 66, HCO3 22, oxygen saturation is 93.4 and a base excess of -3.4. He remains intubated with mechanical ventilator support with current mechanical ventilator settings as follows: Assist control 26, TV 550, FiO2 100%, PEEP of 12. Right IJ Paxton-Belinda catheter in place, current cardiac output is 5.4, cardiac index 2.8, PA pressures 42/30, CVP 24 mmHg. Mediastinal and left pleural chest tubes remain to low continuous wall suction -20 cm H2O. No air leak is present. They continued to drain thin serosanguineous drainage. Mediastinal chest tubes with 200 mL output in the last 24 hours, left pleural chest tube with 170 mL output in the last 24 hours. Oxygen saturations are 94% with mechanical ventilator support. The patient also remains on an amiodarone drip for atrial fibrillation. His urine output has been marginal in the last 8 hours and a Lasix drip has been initiated at 10 mg per hour. A chest x-ray was completed this morning which showed mildly worsened. Hilar pulmonary edema compared to yesterday's chest x-ray. A 2-D echocardiogram was completed at his bedside which demonstrated an overall left ventricular systolic function to be severely impaired with an ejection fraction between 20 and 25%, mild aortic valve regurgitation, mild mitral valve regurgitation, moderate to severe tricuspid valve regurgitation and an echo density was seen on the RV side of the tricuspid valve. Objective - Vital Signs Vital signs: Vital Signs Temp 98.8 F 01/28/19 08:00 Pulse 112 H 01/28/19 10:15 Resp 30 H 01/28/19 10:15 BP 82/59 01/28/19 10:00 Pulse Ox 82 L 01/28/19 08:15 Intake & Output 01/27/19 01/28/19 01/28/19 18:59 06:59 18:59 Intake Total 9161.136 4590.794 1714.793 Output Total 440 3396 48 Balance 1465.499 -6910.118 0937.793 Weight 84.8 kg Intake: IV 0257 736 5465 .9NS Pressure Bag 108 108 36 Albumin Human 5% 250 ml 250 250 In Empty Bag 1 bag @ 250 mls/hr IVPB Q1HR PRN Rx#: [id number] Lactated Ringers 1,000 ml 550 290 120 @ 20 mls/hr IV .Q24H [facility] Rx#:[id number] Potassium Chloride 10 meq 200 In Water For Injection 1 100ml.bag @ 100 mls/hr IVPB Q1H RASHAD Rx#: [id number] Potassium Chloride 20 meq 100 In Water For Injection 1 100ml.bag @ 50 mls/hr IVPB Q2H RASHAD Rx#: [id number] Sodium Chloride 0.9% 500 1000 ml 500 ml @ 999 mls/hr IV .Q31M ONE Rx#:[id number] cardiac output 120 180 90 ceFAZolin 2 gm In Sodium 50 50 Chloride 0.9% 50 ml @ 100 mls/hr IVPB Q8HR RASHAD Rx# :[id number] Intake, IV Titration 417.499 630.794 268.793 Amount Cisatracurium 200 mg In 6.106 Sodium Chloride 0.9% 180 ml @ 1 MCG/KG/MIN 5.088 mls/hr IV .Q24H RASHAD Rx#: [id number] Furosemide 100 mg In 28.5 Sodium Chloride 0.9% 90 ml @ 10 MG/HR 10 mls/hr IV .Q10H RASHAD Rx#: [id number] Insulin Regular 100 unit 2.925 2.425 In Sodium Chloride 0.9% 100 ml @ Per Protocol IV .Q0M RASHAD Rx#:[id number] Lactated Ringers 1,000 ml 60 @ 20 mls/hr IV .Q24H RASHAD Rx#:[id number] Norepinephrine 4 mg In 334.614 425.275 151.737 Sodium Chloride 0.9% 250 ml @ 0.04 MCG/KG/MIN 11. 06 mls/hr IV .[id number] RASHAD Rx#:[id number] Propofol 1,000 mg In 79.960 143.094 82.45 Empty Bag 1 bag @ Titrate IV .Q0M RASHAD Rx#: [id number] Blood Product 310 Rc As-1 Unit 310 [id number] Output: Chest Tube Drainage 220 210 20 Left Pleural 120 100 10 Mediastinal Chest Tube 100 110 10 Drainage 35 20 Left arm 15 10 Right Lower Calf 20 10 Urine 185 3166 28 Other: Voiding Method Indwelling Catheter Indwelling Catheter Indwelling Catheter ABP, PAP, CO, CI - Last Documented Arterial Blood Pressure 98/62 Pulmonary Artery Pressure 42/29 Cardiac Output 4.4 Cardiac Index 2.3 - Constitutional Constitutional Comment(s): The patient remains intubated with mechanical ventilator support and sedated on propofol drip. - Respiratory Details: Lung sounds diminished bilateral bases with some coarse rhonchi to his left lobes. Respirations are symmetrical and nonlabored with mechanical ventilator support. Mediastinal and left pleural chest tubes to low continuous wall suction -20 cm H2O and is draining thin serosanguineous drainage. No air leak is present. - Cardiovascular Details: Irregular rhythm and tachycardic rate consistent with atrial fibrillation. S1 and S2 present, negative for S3, gallop or murmur. Sternum is stable. Bedside telemetry showing atrial fibrillation heart rate 109. Atrial and ventricular epicardial pacemaker wires in place and connected to a backup pacemaker generator at VVI at 50. +1 generalized edema. Knee-high LEOBARDO hose and sequential compression devices in place was bilateral lower extremities. Right IJ Cordis and Paxton-Belinda catheter in place and functioning. Right radial arterial line in place and functioning. - Gastrointestinal Gastrointestinal Comment(s): Abdomen is soft and slightly distended. Hypoactive bowel sounds present all 4 abdominal quadrants. OG tube in place to low intermittent wall suction. No organomegaly appreciated. - Genitourinary Genitourinary Comment(s): Godoy catheter in place for accurate I&O. Oliguric. - Integumentary Integumentary Comment(s): Skin is warm and dry. Scant cyanosis noted to his fingertips and toes. Midline sternal incision is clean, dry and approximated. No drainage or redness is present. Left arm radial artery harvest sites clean, dry and approximated. No redness or drainage is present. ARMOND drain in place with scant serosanguineous drainage. Right lower extremity EVH sites clean, dry and approximated. No aide inage or redness is present. ARMOND drain in place with scant serosanguineous drainage. - Neurologic Neurologic Comment(s): Unable to assess due to patient being sedated with a Diprivan drip. - Musculoskeletal Musculoskeletal Comment(s): Unable to assess due to patient being sedated with a Diprivan drip. - Psychiatric Psychiatric Comment(s): Unable to assess due to patient being sedated with a Diprivan drip. - Allied health notes Allied health notes reviewed: nursing - Labs CBC & Chem 7: 01/28/19 11:55 01/28/19 11:55 Labs: Abnormal Lab Results - Last 24 Hours (Table) 01/17/19 01/27/19 01/27/19 Range/Units 09:00 12:01 12:46 WBC (3.8-10.6) k/uL RBC (4.30-5.90) m/uL Hgb (13.0-17.5) gm/dL Hct (39.0-53.0) % Plt Count (150-450) k/uL Neutrophils # (Manual) (1.3-7.7) k/uL Lymphocytes # (Manual) (1.0-4.8) k/uL Metamyelocytes # (Man) (0) k/uL ABG pH (7.35-7.45) ABG pCO2 34 L (35-45) mmHg ABG pO2 69 L (83-108) mmHg ABG HCO3 (21-25) mmol/L ABG O2 Saturation 93.9 L (94-97) % ABG Lactic Acid (0.5-1.6) mmol/L Chloride (98-107) mmol/L Carbon Dioxide (22-30) mmol/L BUN (9-20) mg/dL Creatinine (0.66-1.25) mg/dL Glucose (74-99) mg/dL POC Glucose (mg/dL) 115 H (75-99) mg/dL Calcium (8.4-10.2) mg/dL Total Protein (6.3-8.2) g/dL Albumin (3.5-5.0) g/dL Crossmatch See Detail 01/27/19 01/27/19 01/27/19 Range/Units 14:07 15:06 16:00 WBC (3.8-10.6) k/uL RBC (4.30-5.90) m/uL Hgb (13.0-17.5) gm/dL Hct (39.0-53.0) % Plt Count (150-450) k/uL Neutrophils # (Manual) (1.3-7.7) k/uL Lymphocytes # (Manual) (1.0-4.8) k/uL Metamyelocytes # (Man) (0) k/uL ABG pH (7.35-7.45) ABG pCO2 (35-45) mmHg ABG pO2 (83-108) mmHg ABG HCO3 (21-25) mmol/L ABG O2 Saturation (94-97) % ABG Lactic Acid (0.5-1.6) mmol/L Chloride (98-107) mmol/L Carbon Dioxide (22-30) mmol/L BUN (9-20) mg/dL Creatinine (0.66-1.25) mg/dL Glucose (74-99) mg/dL POC Glucose (mg/dL) 124 H 127 H 124 H (75-99) mg/dL Calcium (8.4-10.2) mg/dL Total Protein (6.3-8.2) g/dL Albumin (3.5-5.0) g/dL Crossmatch 01/27/19 01/27/19 01/27/19 Range/Units 17:01 17:10 18:00 WBC (3.8-10.6) k/uL RBC 2.43 L (4.30-5.90) m/uL Hgb 7.7 L (13.0-17.5) gm/dL Hct 21.8 L (39.0-53.0) % Plt Count 62 L (150-450) k/uL Neutrophils # (Manual) (1.3-7.7) k/uL Lymphocytes # (Manual) (1.0-4.8) k/uL Metamyelocytes # (Man) (0) k/uL ABG pH (7.35-7.45) ABG pCO2 (35-45) mmHg ABG pO2 65 L (83-108) mmHg ABG HCO3 20 L (21-25) mmol/L ABG O2 Saturation 92.5 L (94-97) % ABG Lactic Acid (0.5-1.6) mmol/L Chloride (98-107) mmol/L Carbon Dioxide (22-30) mmol/L BUN (9-20) mg/dL Creatinine (0.66-1.25) mg/dL Glucose (74-99) mg/dL POC Glucose (mg/dL) 125 H (75-99) mg/dL Calcium (8.4-10.2) mg/dL Total Protein (6.3-8.2) g/dL Albumin (3.5-5.0) g/dL Crossmatch 01/27/19 01/27/19 01/27/19 Range/Units 18:09 18:45 18:45 WBC (3.8-10.6) k/uL RBC 2.56 L (4.30-5.90) m/uL Hgb 8.2 L (13.0-17.5) gm/dL Hct 22.9 L (39.0-53.0) % Plt Count 70 L (150-450) k/uL Neutrophils # (Manual) (1.3-7.7) k/uL Lymphocytes # (Manual) (1.0-4.8) k/uL Metamyelocytes # (Man) (0) k/uL ABG pH (7.35-7.45) ABG pCO2 (35-45) mmHg ABG pO2 (83-108) mmHg ABG HCO3 (21-25) mmol/L ABG O2 Saturation (94-97) % ABG Lactic Acid (0.5-1.6) mmol/L Chloride 109 H (98-107) mmol/L Carbon Dioxide 20 L (22-30) mmol/L BUN 28 H (9-20) mg/dL Creatinine 1.58 H (0.66-1.25) mg/dL Glucose 121 H (74-99) mg/dL POC Glucose (mg/dL) 126 H (75-99) mg/dL Calcium 7.9 L (8.4-10.2) mg/dL Total Protein (6.3-8.2) g/dL Albumin (3.5-5.0) g/dL Crossmatch 01/27/19 01/27/19 01/27/19 Range/Units 19:01 19:56 21:05 WBC (3.8-10.6) k/uL RBC (4.30-5.90) m/uL Hgb (13.0-17.5) gm/dL Hct (39.0-53.0) % Plt Count (150-450) k/uL Neutrophils # (Manual) (1.3-7.7) k/uL Lymphocytes # (Manual) (1.0-4.8) k/uL Metamyelocytes # (Man) (0) k/uL ABG pH (7.35-7.45) ABG pCO2 (35-45) mmHg ABG pO2 (83-108) mmHg ABG HCO3 (21-25) mmol/L ABG O2 Saturation (94-97) % ABG Lactic Acid (0.5-1.6) mmol/L Chloride (98-107) mmol/L Carbon Dioxide (22-30) mmol/L BUN (9-20) mg/dL Creatinine (0.66-1.25) mg/dL Glucose (74-99) mg/dL POC Glucose (mg/dL) 122 H 125 H 138 H (75-99) mg/dL Calcium (8.4-10.2) mg/dL Total Protein (6.3-8.2) g/dL Albumin (3.5-5.0) g/dL Crossmatch 01/27/19 01/27/19 01/28/19 Range/Units 22:10 23:13 01:02 WBC (3.8-10.6) k/uL RBC (4.30-5.90) m/uL Hgb (13.0-17.5) gm/dL Hct (39.0-53.0) % Plt Count (150-450) k/uL Neutrophils # (Manual) (1.3-7.7) k/uL Lymphocytes # (Manual) (1.0-4.8) k/uL Metamyelocytes # (Man) (0) k/uL ABG pH (7.35-7.45) ABG pCO2 (35-45) mmHg ABG pO2 (83-108) mmHg ABG HCO3 (21-25) mmol/L ABG O2 Saturation (94-97) % ABG Lactic Acid (0.5-1.6) mmol/L Chloride (98-107) mmol/L Carbon Dioxide (22-30) mmol/L BUN (9-20) mg/dL Creatinine (0.66-1.25) mg/dL Glucose (74-99) mg/dL POC Glucose (mg/dL) 121 H 140 H 134 H (75-99) mg/dL Calcium (8.4-10.2) mg/dL Total Protein (6.3-8.2) g/dL Albumin (3.5-5.0) g/dL Crossmatch 01/28/19 01/28/19 01/28/19 Range/Units 02:07 04:03 04:15 WBC 1.6 L (3.8-10.6) k/uL RBC 2.58 L (4.30-5.90) m/uL Hgb 8.0 L (13.0-17.5) gm/dL Hct 23.1 L (39.0-53.0) % Plt Count 66 L (150-450) k/uL Neutrophils # (Manual) 1.20 L (1.3-7.7) k/uL Lymphocytes # (Manual) 0.27 L (1.0-4.8) k/uL Metamyelocytes # (Man) 0.03 H (0) k/uL ABG pH (7.35-7.45) ABG pCO2 (35-45) mmHg ABG pO2 66 L (83-108) mmHg ABG HCO3 (21-25) mmol/L ABG O2 Saturation 93.4 L (94-97) % ABG Lactic Acid (0.5-1.6) mmol/L Chloride (98-107) mmol/L Carbon Dioxide (22-30) mmol/L BUN (9-20) mg/dL Creatinine (0.66-1.25) mg/dL Glucose (74-99) mg/dL POC Glucose (mg/dL) 111 H (75-99) mg/dL Calcium (8.4-10.2) mg/dL Total Protein (6.3-8.2) g/dL Albumin (3.5-5.0) g/dL Crossmatch 01/28/19 01/28/19 01/28/19 Range/Units 04:15 04:17 06:11 WBC (3.8-10.6) k/uL RBC (4.30-5.90) m/uL Hgb (13.0-17.5) gm/dL Hct (39.0-53.0) % Plt Count (150-450) k/uL Neutrophils # (Manual) (1.3-7.7) k/uL Lymphocytes # (Manual) (1.0-4.8) k/uL Metamyelocytes # (Man) (0) k/uL ABG pH (7.35-7.45) ABG pCO2 (35-45) mmHg ABG pO2 (83-108) mmHg ABG HCO3 (21-25) mmol/L ABG O2 Saturation (94-97) % ABG Lactic Acid (0.5-1.6) mmol/L Chloride 109 H (98-107) mmol/L Carbon Dioxide 20 L (22-30) mmol/L BUN 32 H (9-20) mg/dL Creatinine 1.72 H (0.66-1.25) mg/dL Glucose 101 H (74-99) mg/dL POC Glucose (mg/dL) 107 H 101 H (75-99) mg/dL Calcium 7.9 L (8.4-10.2) mg/dL Total Protein 4.6 L (6.3-8.2) g/dL Albumin 2.9 L (3.5-5.0) g/dL Crossmatch 01/28/19 01/28/19 01/28/19 Range/Units 07:10 07:30 08:28 WBC (3.8-10.6) k/uL RBC (4.30-5.90) m/uL Hgb (13.0-17.5) gm/dL Hct (39.0-53.0) % Plt Count (150-450) k/uL Neutrophils # (Manual) (1.3-7.7) k/uL Lymphocytes # (Manual) (1.0-4.8) k/uL Metamyelocytes # (Man) (0) k/uL ABG pH 7.33 L 7.26 L (7.35-7.45) ABG pCO2 47 H (35-45) mmHg ABG pO2 57 L* 53 L* (83-108) mmHg ABG HCO3 (21-25) mmol/L ABG O2 Saturation 87.9 L 82.1 L (94-97) % ABG Lactic Acid 3.1 H* (0.5-1.6) mmol/L Chloride (98-107) mmol/L Carbon Dioxide (22-30) mmol/L BUN (9-20) mg/dL Creatinine (0.66-1.25) mg/dL Glucose (74-99) mg/dL POC Glucose (mg/dL) (75-99) mg/dL Calcium (8.4-10.2) mg/dL Total Protein (6.3-8.2) g/dL Albumin (3.5-5.0) g/dL Crossmatch 01/28/19 01/28/19 01/28/19 Range/Units 09:23 09:34 09:58 WBC (3.8-10.6) k/uL RBC (4.30-5.90) m/uL Hgb (13.0-17.5) gm/dL Hct (39.0-53.0) % Plt Count (150-450) k/uL Neutrophils # (Manual) (1.3-7.7) k/uL Lymphocytes # (Manual) (1.0-4.8) k/uL Metamyelocytes # (Man) (0) k/uL ABG pH 7.22 L (7.35-7.45) ABG pCO2 (35-45) mmHg ABG pO2 55 L* (83-108) mmHg ABG HCO3 18 L (21-25) mmol/L ABG O2 Saturation 82.5 L (94-97) % ABG Lactic Acid (0.5-1.6) mmol/L Chloride (98-107) mmol/L Carbon Dioxide (22-30) mmol/L BUN (9-20) mg/dL Creatinine (0.66-1.25) mg/dL Glucose (74-99) mg/dL POC Glucose (mg/dL) 51 L 191 H (75-99) mg/dL Calcium (8.4-10.2) mg/dL Total Protein (6.3-8.2) g/dL Albumin (3.5-5.0) g/dL Crossmatch 01/28/19 01/28/19 Range/Units 10:00 11:05 WBC (3.8-10.6) k/uL RBC (4.30-5.90) m/uL Hgb (13.0-17.5) gm/dL Hct (39.0-53.0) % Plt Count (150-450) k/uL Neutrophils # (Manual) (1.3-7.7) k/uL Lymphocytes # (Manual) (1.0-4.8) k/uL Metamyelocytes # (Man) (0) k/uL ABG pH (7.35-7.45) ABG pCO2 (35-45) mmHg ABG pO2 (83-108) mmHg ABG HCO3 (21-25) mmol/L ABG O2 Saturation (94-97) % ABG Lactic Acid 5.2 H* (0.5-1.6) mmol/L Chloride (98-107) mmol/L Carbon Dioxide (22-30) mmol/L BUN (9-20) mg/dL Creatinine (0.66-1.25) mg/dL Glucose (74-99) mg/dL POC Glucose (mg/dL) 132 H (75-99) mg/dL Calcium (8.4-10.2) mg/dL Total Protein (6.3-8.2) g/dL Albumin (3.5-5.0) g/dL Crossmatch Microbiology - Last 24 Hours (Table) 01/27/19 16:40 Gram Stain - Preliminary Sputum Sputum Culture - Preliminary - Imaging and Cardiology Chest x-ray: report reviewed, image reviewed Assessment and Plan Assessment: 1. Multivessel coronary artery disease, status post three-vessel coronary artery bypass grafting surgery 2. Postoperative acute blood loss anemia, an unexpected but potential outcome of surgery due to cardiopulmonary bypass and hemodilution 3. History of hypertension 4. History of hypercholesterolemia 5. History of abdominal aortic aneurysm status post surgical repair 6. History of lung cancer involving the right lung, history of surgical resection as well as chemotherapy and radiation therapy 7. Remote history of smoking 8. Postoperative paroxysmal atrial fibrillation, an expected but potential outcome of surgery 9. Postoperative hypoxic respiratory failure, requiring prolonged mechanical ventilator support 10. Acute kidney injury secondary to acute tubular necrosis and hypotension. 11. Postoperative hypotension secondary to severe LV dysfunction and possibly a component of septic shock Plan: 1. Continue low-dose aspirin and statin. Hold beta scott and Norvasc today. 2. Continue norepinephrine drip titrate for a systolic blood pressure greater than 90 and a map greater than 70. 3. Mechanical ventilator support management per Dr. Brothers recommendations. 4. Will monitor daily labs and chest x-rays. Electrolyte replacement per protocol. 5. Bronchodilators per pulmonology management. 6. Pain control with current medication regimen. 7. Insulin management per primary care service. 8. Keep right IJ Cordis/Paxton-Belinda catheter, right radial arterial line and Godoy catheter in place. 9. Continue chest tubes to low continuous wall suction -20 cm H2O. 10. Continue GI and DVT prophylaxis. 11. Keep amiodarone drip in place for atrial fibrillation prophylaxis. 13. Obtain a stat 2-D echocardiogram to evaluate LV function. 14. Consult Dr. Farrar from infectious disease due to his his WBC count of 1.6, and bandemia of 55%. 15. Consult nephrology for decreased urine output, elevated BUN and creatinine. 16. Start the patient on Zosyn and vancomycin IV Piggyback 14. More recommendations to follow based on patient's clinical course. Time with Patient: Greater than 30 <Deep Franco - Last Filed: 01/28/19 14:55> Objective - Vital Signs Vital signs: Vital Signs Temp 97.5 F L 01/28/19 12:00 Pulse 98 01/28/19 13:45 Resp 30 H 01/28/19 13:45 BP 80/28 01/28/19 11:15 Pulse Ox 82 L 01/28/19 08:15 Intake & Output 01/27/19 01/28/19 01/28/19 18:59 06:59 18:59 Intake Total 3436.334 2608.794 2315.121 Output Total 440 3396 78 Balance 1465.499 -0821.099 3746.121 Weight 84.8 kg Intake: IV 6456 268 7149 .9NS Pressure Bag 108 108 63 Albumin Human 5% 250 ml 250 250 In Empty Bag 1 bag @ 250 mls/hr IVPB Q1HR PRN Rx#: [id number] Dextrose 5% in Water 1, 150 000 ml @ 75 mls/hr IV . [id number] RASHAD with Sodium Bicarb (1 Meq/ml) 150 ml Rx#:[id number] Lactated Ringers 1,000 ml 550 290 210 @ 20 mls/hr IV .Q24H R[facility]AD Rx#:[id number] Potassium Chloride 10 meq 200 In Water For Injection 1 100ml.bag @ 100 mls/hr IVPB Q1H [facility]AD Rx#: [id number] Potassium Chloride 20 meq 100 In Water For Injection 1 100ml.bag @ 50 mls/hr IVPB Q2H RASHAD Rx#: [id number] Sodium Chloride 0.9% 500 1000 ml 500 ml @ 999 mls/hr IV .Q31M ONE Rx#:[id number] cardiac output 120 180 160 ceFAZolin 2 gm In Sodium 50 50 Chloride 0.9% 50 ml @ 100 mls/hr IVPB Q8HR RASHAD Rx# :[id number] Intake, IV Titration 417.499 630.794 532.121 Amount Cisatracurium 200 mg In 6.106 Sodium Chloride 0.9% 180 ml @ 1 MCG/KG/MIN 5.088 mls/hr IV .Q24H RASHAD Rx#: [id number] EPINEPHrine 4 mg In 9.328 Dextrose 5% in Water 250 ml @ 0.01 MCG/KG/MIN 3.18 mls/hr IV .Q24H RASHAD Rx#: [id number] Furosemide 100 mg In 28.5 Sodium Chloride 0.9% 90 ml @ 10 MG/HR 10 mls/hr IV .Q10H RASHAD Rx#: [id number] Insulin Regular 100 unit 2.925 2.425 In Sodium Chloride 0.9% 100 ml @ Per Protocol IV .Q0M RAHS[facility] Rx#:[id number] Lactated Ringers 1,000 ml 60 @ 20 mls/hr IV .Q24H RASHAD Rx#:[id number] Norepinephrine 4 mg In 334.614 425.275 405.737 Sodium Chloride 0.9% 250 ml @ 0.04 MCG/KG/MIN 11. 06 mls/hr IV .[id number] RASHAD Rx#:[id number] Propofol 1,000 mg In 79.960 143.094 82.45 Empty Bag 1 bag @ Titrate IV .Q0M RASHAD Rx#: [id number] Blood Product 310 Rc As-1 Unit 310 [id number] Output: Chest Tube Drainage 220 210 50 Left Pleural 120 100 20 Mediastinal Chest Tube 100 110 30 Drainage 35 20 Left arm 15 10 Right Lower Calf 20 10 Urine 185 3166 28 Other: Voiding Method Indwelling Catheter Indwelling Catheter Indwelling Catheter ABP, PAP, CO, CI - Last Documented Arterial Blood Pressure 79/59 Pulmonary Artery Pressure 41/27 Cardiac Output 4.2 Cardiac Index 2.2 - Labs CBC & Chem 7: 01/28/19 11:55 01/28/19 11:55 Labs: Abnormal Lab Results - Last 24 Hours (Table) 01/27/19 01/27/19 01/27/19 Range/Units 15:06 16:00 17:01 WBC (3.8-10.6) k/uL RBC (4.30-5.90) m/uL Hgb (13.0-17.5) gm/dL Hct (39.0-53.0) % RDW (11.5-15.5) % Plt Count (150-450) k/uL Neutrophils # (Manual) (1.3-7.7) k/uL Lymphocytes # (Manual) (1.0-4.8) k/uL Metamyelocytes # (Man) (0) k/uL ABG pH (7.35-7.45) ABG pCO2 (35-45) mmHg ABG pO2 (83-108) mmHg ABG HCO3 (21-25) mmol/L ABG Total CO2 (19-24) mmol/L ABG O2 Saturation (94-97) % ABG Lactic Acid (0.5-1.6) mmol/L Chloride (98-107) mmol/L Carbon Dioxide (22-30) mmol/L BUN (9-20) mg/dL Creatinine (0.66-1.25) mg/dL Glucose (74-99) mg/dL POC Glucose (mg/dL) 127 H 124 H 125 H (75-99) mg/dL Calcium (8.4-10.2) mg/dL Total Bilirubin (0.2-1.3) mg/dL ALT (21-72) U/L Total Protein (6.3-8.2) g/dL Albumin (3.5-5.0) g/dL 01/27/19 01/27/19 01/27/19 Range/Units 17:10 18:00 18:09 WBC (3.8-10.6) k/uL RBC 2.43 L (4.30-5.90) m/uL Hgb 7.7 L (13.0-17.5) gm/dL Hct 21.8 L (39.0-53.0) % RDW (11.5-15.5) % Plt Count 62 L (150-450) k/uL Neutrophils # (Manual) (1.3-7.7) k/uL Lymphocytes # (Manual) (1.0-4.8) k/uL Metamyelocytes # (Man) (0) k/uL ABG pH (7.35-7.45) ABG pCO2 (35-45) mmHg ABG pO2 65 L (83-108) mmHg ABG HCO3 20 L (21-25) mmol/L ABG Total CO2 (19-24) mmol/L ABG O2 Saturation 92.5 L (94-97) % ABG Lactic Acid (0.5-1.6) mmol/L Chloride (98-107) mmol/L Carbon Dioxide (22-30) mmol/L BUN (9-20) mg/dL Creatinine (0.66-1.25) mg/dL Glucose (74-99) mg/dL POC Glucose (mg/dL) 126 H (75-99) mg/dL Calcium (8.4-10.2) mg/dL Total Bilirubin (0.2-1.3) mg/dL ALT (21-72) U/L Total Protein (6.3-8.2) g/dL Albumin (3.5-5.0) g/dL 01/27/19 01/27/19 01/27/19 Range/Units 18:45 18:45 19:01 WBC (3.8-10.6) k/uL RBC 2.56 L (4.30-5.90) m/uL Hgb 8.2 L (13.0-17.5) gm/dL Hct 22.9 L (39.0-53.0) % RDW (11.5-15.5) % Plt Count 70 L (150-450) k/uL Neutrophils # (Manual) (1.3-7.7) k/uL Lymphocytes # (Manual) (1.0-4.8) k/uL Metamyelocytes # (Man) (0) k/uL ABG pH (7.35-7.45) ABG pCO2 (35-45) mmHg ABG pO2 (83-108) mmHg ABG HCO3 (21-25) mmol/L ABG Total CO2 (19-24) mmol/L ABG O2 Saturation (94-97) % ABG Lactic Acid (0.5-1.6) mmol/L Chloride 109 H (98-107) mmol/L Carbon Dioxide 20 L (22-30) mmol/L BUN 28 H (9-20) mg/dL Creatinine 1.58 H (0.66-1.25) mg/dL Glucose 121 H (74-99) mg/dL POC Glucose (mg/dL) 122 H (75-99) mg/dL Calcium 7.9 L (8.4-10.2) mg/dL Total Bilirubin (0.2-1.3) mg/dL ALT (21-72) U/L Total Protein (6.3-8.2) g/dL Albumin (3.5-5.0) g/dL 01/27/19 01/27/19 01/27/19 Range/Units 19:56 21:05 22:10 WBC (3.8-10.6) k/uL RBC (4.30-5.90) m/uL Hgb (13.0-17.5) gm/dL Hct (39.0-53.0) % RDW (11.5-15.5) % Plt Count (150-450) k/uL Neutrophils # (Manual) (1.3-7.7) k/uL Lymphocytes # (Manual) (1.0-4.8) k/uL Metamyelocytes # (Man) (0) k/uL ABG pH (7.35-7.45) ABG pCO2 (35-45) mmHg ABG pO2 (83-108) mmHg ABG HCO3 (21-25) mmol/L ABG Total CO2 (19-24) mmol/L ABG O2 Saturation (94-97) % ABG Lactic Acid (0.5-1.6) mmol/L Chloride (98-107) mmol/L Carbon Dioxide (22-30) mmol/L BUN (9-20) mg/dL Creatinine (0.66-1.25) mg/dL Glucose (74-99) mg/dL POC Glucose (mg/dL) 125 H 138 H 121 H (75-99) mg/dL Calcium (8.4-10.2) mg/dL Total Bilirubin (0.2-1.3) mg/dL ALT (21-72) U/L Total Protein (6.3-8.2) g/dL Albumin (3.5-5.0) g/dL 01/27/19 01/28/19 01/28/19 Range/Units 23:13 01:02 02:07 WBC (3.8-10.6) k/uL RBC (4.30-5.90) m/uL Hgb (13.0-17.5) gm/dL Hct (39.0-53.0) % RDW (11.5-15.5) % Plt Count (150-450) k/uL Neutrophils # (Manual) (1.3-7.7) k/uL Lymphocytes # (Manual) (1.0-4.8) k/uL Metamyelocytes # (Man) (0) k/uL ABG pH (7.35-7.45) ABG pCO2 (35-45) mmHg ABG pO2 (83-108) mmHg ABG HCO3 (21-25) mmol/L ABG Total CO2 (19-24) mmol/L ABG O2 Saturation (94-97) % ABG Lactic Acid (0.5-1.6) mmol/L Chloride (98-107) mmol/L Carbon Dioxide (22-30) mmol/L BUN (9-20) mg/dL Creatinine (0.66-1.25) mg/dL Glucose (74-99) mg/dL POC Glucose (mg/dL) 140 H 134 H 111 H (75-99) mg/dL Calcium (8.4-10.2) mg/dL Total Bilirubin (0.2-1.3) mg/dL ALT (21-72) U/L Total Protein (6.3-8.2) g/dL Albumin (3.5-5.0) g/dL 01/28/19 01/28/19 01/28/19 Range/Units 04:03 04:15 04:15 WBC 1.6 L (3.8-10.6) k/uL RBC 2.58 L (4.30-5.90) m/uL Hgb 8.0 L (13.0-17.5) gm/dL Hct 23.1 L (39.0-53.0) % RDW (11.5-15.5) % Plt Count 66 L (150-450) k/uL Neutrophils # (Manual) 1.20 L (1.3-7.7) k/uL Lymphocytes # (Manual) 0.27 L (1.0-4.8) k/uL Metamyelocytes # (Man) 0.03 H (0) k/uL ABG pH (7.35-7.45) ABG pCO2 (35-45) mmHg ABG pO2 66 L (83-108) mmHg ABG HCO3 (21-25) mmol/L ABG Total CO2 (19-24) mmol/L ABG O2 Saturation 93.4 L (94-97) % ABG Lactic Acid (0.5-1.6) mmol/L Chloride 109 H (98-107) mmol/L Carbon Dioxide 20 L (22-30) mmol/L BUN 32 H (9-20) mg/dL Creatinine 1.72 H (0.66-1.25) mg/dL Glucose 101 H (74-99) mg/dL POC Glucose (mg/dL) (75-99) mg/dL Calcium 7.9 L (8.4-10.2) mg/dL Total Bilirubin (0.2-1.3) mg/dL ALT (21-72) U/L Total Protein 4.6 L (6.3-8.2) g/dL Albumin 2.9 L (3.5-5.0) g/dL 01/28/19 01/28/19 01/28/19 Range/Units 04:17 06:11 07:10 WBC (3.8-10.6) k/uL RBC (4.30-5.90) m/uL Hgb (13.0-17.5) gm/dL Hct (39.0-53.0) % RDW (11.5-15.5) % Plt Count (150-450) k/uL Neutrophils # (Manual) (1.3-7.7) k/uL Lymphocytes # (Manual) (1.0-4.8) k/uL Metamyelocytes # (Man) (0) k/uL ABG pH (7.35-7.45) ABG pCO2 (35-45) mmHg ABG pO2 (83-108) mmHg ABG HCO3 (21-25) mmol/L ABG Total CO2 (19-24) mmol/L ABG O2 Saturation (94-97) % ABG Lactic Acid 3.1 H* (0.5-1.6) mmol/L Chloride (98-107) mmol/L Carbon Dioxide (22-30) mmol/L BUN (9-20) mg/dL Creatinine (0.66-1.25) mg/dL Glucose (74-99) mg/dL POC Glucose (mg/dL) 107 H 101 H (75-99) mg/dL Calcium (8.4-10.2) mg/dL Total Bilirubin (0.2-1.3) mg/dL ALT (21-72) U/L Total Protein (6.3-8.2) g/dL Albumin (3.5-5.0) g/dL 01/28/19 01/28/19 01/28/19 Range/Units 07:30 08:28 09:23 WBC (3.8-10.6) k/uL RBC (4.30-5.90) m/uL Hgb (13.0-17.5) gm/dL Hct (39.0-53.0) % RDW (11.5-15.5) % Plt Count (150-450) k/uL Neutrophils # (Manual) (1.3-7.7) k/uL Lymphocytes # (Manual) (1.0-4.8) k/uL Metamyelocytes # (Man) (0) k/uL ABG pH 7.33 L 7.26 L (7.35-7.45) ABG pCO2 47 H (35-45) mmHg ABG pO2 57 L* 53 L* (83-108) mmHg ABG HCO3 (21-25) mmol/L ABG Total CO2 (19-24) mmol/L ABG O2 Saturation 87.9 L 82.1 L (94-97) % ABG Lactic Acid (0.5-1.6) mmol/L Chloride (98-107) mmol/L Carbon Dioxide (22-30) mmol/L BUN (9-20) mg/dL Creatinine (0.66-1.25) mg/dL Glucose (74-99) mg/dL POC Glucose (mg/dL) 51 L (75-99) mg/dL Calcium (8.4-10.2) mg/dL Total Bilirubin (0.2-1.3) mg/dL ALT (21-72) U/L Total Protein (6.3-8.2) g/dL Albumin (3.5-5.0) g/dL 01/28/19 01/28/19 01/28/19 Range/Units 09:34 09:58 10:00 WBC (3.8-10.6) k/uL RBC (4.30-5.90) m/uL Hgb (13.0-17.5) gm/dL Hct (39.0-53.0) % RDW (11.5-15.5) % Plt Count (150-450) k/uL Neutrophils # (Manual) (1.3-7.7) k/uL Lymphocytes # (Manual) (1.0-4.8) k/uL Metamyelocytes # (Man) (0) k/uL ABG pH 7.22 L (7.35-7.45) ABG pCO2 (35-45) mmHg ABG pO2 55 L* (83-108) mmHg ABG HCO3 18 L (21-25) mmol/L ABG Total CO2 (19-24) mmol/L ABG O2 Saturation 82.5 L (94-97) % ABG Lactic Acid 5.2 H* (0.5-1.6) mmol/L Chloride (98-107) mmol/L Carbon Dioxide (22-30) mmol/L BUN (9-20) mg/dL Creatinine (0.66-1.25) mg/dL Glucose (74-99) mg/dL POC Glucose (mg/dL) 191 H (75-99) mg/dL Calcium (8.4-10.2) mg/dL Total Bilirubin (0.2-1.3) mg/dL ALT (21-72) U/L Total Protein (6.3-8.2) g/dL Albumin (3.5-5.0) g/dL 01/28/19 01/28/19 01/28/19 Range/Units 11:05 11:47 11:52 WBC (3.8-10.6) k/uL RBC (4.30-5.90) m/uL Hgb (13.0-17.5) gm/dL Hct (39.0-53.0) % RDW (11.5-15.5) % Plt Count (150-450) k/uL Neutrophils # (Manual) (1.3-7.7) k/uL Lymphocytes # (Manual) (1.0-4.8) k/uL Metamyelocytes # (Man) (0) k/uL ABG pH 7.19 L* (7.35-7.45) ABG pCO2 52 H (35-45) mmHg ABG pO2 50 L* (83-108) mmHg ABG HCO3 20 L (21-25) mmol/L ABG Total CO2 (19-24) mmol/L ABG O2 Saturation 76.3 L (94-97) % ABG Lactic Acid (0.5-1.6) mmol/L Chloride (98-107) mmol/L Carbon Dioxide (22-30) mmol/L BUN (9-20) mg/dL Creatinine (0.66-1.25) mg/dL Glucose (74-99) mg/dL POC Glucose (mg/dL) 132 H 127 H (75-99) mg/dL Calcium (8.4-10.2) mg/dL Total Bilirubin (0.2-1.3) mg/dL ALT (21-72) U/L Total Protein (6.3-8.2) g/dL Albumin (3.5-5.0) g/dL 01/28/19 01/28/19 01/28/19 Range/Units 11:55 11:55 12:42 WBC 2.1 L (3.8-10.6) k/uL RBC 2.64 L (4.30-5.90) m/uL Hgb 8.5 L (13.0-17.5) gm/dL Hct 24.7 L (39.0-53.0) % RDW 16.4 H (11.5-15.5) % Plt Count 83 L (150-450) k/uL Neutrophils # (Manual) (1.3-7.7) k/uL Lymphocytes # (Manual) (1.0-4.8) k/uL Metamyelocytes # (Man) (0) k/uL ABG pH 7.29 L (7.35-7.45) ABG pCO2 59 H (35-45) mmHg ABG pO2 52 L* (83-108) mmHg ABG HCO3 28 H (21-25) mmol/L ABG Total CO2 30 H (19-24) mmol/L ABG O2 Saturation 82.5 L (94-97) % ABG Lactic Acid (0.5-1.6) mmol/L Chloride 108 H (98-107) mmol/L Carbon Dioxide 19 L (22-30) mmol/L BUN 35 H (9-20) mg/dL Creatinine 2.04 H (0.66-1.25) mg/dL Glucose 126 H (74-99) mg/dL POC Glucose (mg/dL) (75-99) mg/dL Calcium 6.9 L (8.4-10.2) mg/dL Total Bilirubin 1.6 H (0.2-1.3) mg/dL ALT 15 L (21-72) U/L Total Protein 4.2 L (6.3-8.2) g/dL Albumin 2.5 L (3.5-5.0) g/dL 01/28/19 01/28/19 Range/Units 13:33 13:41 WBC (3.8-10.6) k/uL RBC (4.30-5.90) m/uL Hgb (13.0-17.5) gm/dL Hct (39.0-53.0) % RDW (11.5-15.5) % Plt Count (150-450) k/uL Neutrophils # (Manual) (1.3-7.7) k/uL Lymphocytes # (Manual) (1.0-4.8) k/uL Metamyelocytes # (Man) (0) k/uL ABG pH 7.17 L* 7.17 L* (7.35-7.45) ABG pCO2 62 H 65 H (35-45) mmHg ABG pO2 27 L* 31 L* (83-108) mmHg ABG HCO3 (21-25) mmol/L ABG Total CO2 26 H (19-24) mmol/L ABG O2 Saturation 38.2 L 47.2 L (94-97) % ABG Lactic Acid (0.5-1.6) mmol/L Chloride (98-107) mmol/L Carbon Dioxide (22-30) mmol/L BUN (9-20) mg/dL Creatinine (0.66-1.25) mg/dL Glucose (74-99) mg/dL POC Glucose (mg/dL) (75-99) mg/dL Calcium (8.4-10.2) mg/dL Total Bilirubin (0.2-1.3) mg/dL ALT (21-72) U/L Total Protein (6.3-8.2) g/dL Albumin (3.5-5.0) g/dL Microbiology - Last 24 Hours (Table) 01/27/19 16:40 Gram Stain - Preliminary Sputum Sputum Culture - Preliminary Assessment and Plan Plan: The patient was seen and examined. The history and physical findings were verified. I spent 6 hours at the bedside today. The patient remains severely hypoxic despite maximal ventilatory support. Echo reveals an EF of about 30% with a dilated RV but no tamponade. [id number] MR is unchanged. He is currently on multiple pressors and is oliguric depsite lasix. We have contacted the [facility] for consideration of ECMO. We are currently awaiting their input. Antibiotics were also initiated secondary to bandemia. I have spoken with the patient's daughter regarding his current status. All of her questions were answered. He remains in critical condition.
[2019-01-28] MEDS ORDERED: SODIUM BICARB 8.4% 50 ML SYR (1 MEQ/ML) ONE (15:03)
[2019-01-28] MEDS ORDERED: EPINEPHrine 10 ML SYRINGE (0.1 MG/ML) ONE (15:03)
[2019-01-28 15:45] VITALS: BP 147/81; PULSE 46
--- NOTE | 2019-01-28 20:37 | CONS ---
CONSULTATION Mr. Murphy is a 78-year-old gentleman who is seen for cardiac evaluation. The events over the last 24 hours were reviewed. The patient's condition was discussed with the nurses, Dr. Franco and Dr. Marie. This patient was extubated yesterday. However, because of his persistent hypoxia, the patient required re-intubation within 4 hours, and it is difficult to oxygenate the patient. He is on 100% FiO2 and PEEP of 16. His respiratory rate was 30. Patient has evidence of metabolic and respiratory acidosis. The patient is also in shock, requiring norepinephrine and vasopressin as well as epinephrine. Echocardiogram was repeated today which showed evidence of significant right ventricular enlargement with poor right ventricular function. Right atrium is enlarged. There is moderate to severe tricuspid regurgitation. The patient has evidence of persistent hypoxia. Inferolateral wall is moving fairly well, but there are paradoxical septal contractions. The patient's chest x-ray shows bilateral perihilar edema which could be either secondary to acute lung injury or cardiogenic pulmonary edema. The patient's blood pressure currently is 80/60 on multiple pressors. Heart rate is 112. The patient is in sinus rhythm with multiple PACs and has underlying right bundle branch block pattern. First and second heart sounds are normal. No significant murmurs are noted. ASSESSMENT AND PLAN: This patient has acute hypoxic respiratory failure. It is very difficult to oxygenate the patient in spite of being on PEEP and 100% oxygen. The patient has either acute lung injury and sepsis syndrome or with a combination of cardiogenic pulmonary edema. The patient's pulmonary artery diastolic pressure is 30. CVP pressure is 26. Patient's cardiac index is 2.2 and SVR is in the range of 900. White blood cell count shows evidence of significant . Patient's condition is extremely poor. Discussed with Dr. Franco as well as Dr. Marie. The patient would most likely benefit from ECMO, and they will be contacting [facility] for possible transfer. Patient's overall condition is very critical and the family members are aware of it. MMODL / IJN: [id number] /
[2019-01-29] MEDS ORDERED: VANCOMYCIN 1,500 MG in SODIUM CHLORIDE 0.9% 250 ML IVPB SCH (02:00)
--- NOTE | 2019-01-30 13:46 | CDI ---
Documentation Clarification Form Date: 01/30/2019 12:56:48 PM From: Serina Coombs RN, CCDS Email: [email or web address] Admit Date: 01/25/2019 5:40:00 AM Patient Name: Saurabh Murphy Visit Number: [id number] Discharge Date: 01/28/2019 6:43:00 PM ATTENTION: The Clinical Documentation Specialists (CDI) and [facility] Coding Staff appreciate your assistance in clarifying documentation. Please respond to the clarification below the line at the bottom and electronically sign. The CDI & [facility] Coding staff will review the response and follow-up if needed. Please note: Queries are made part of the Legal Health Record. If you have any questions, please contact the author of this message via ITS. Dr. Deep Franco History/Risk Factors: heart catheterization on 11/02/2018 revealed a 60% lesion in the left main artery, occlusion in the midportion of the left circumflex artery, mild disease in the LAD, there was a 99% critical lesion in the mid right coronary artery. S/P CABG x3. Perforated pulmonary artery and perforated coronary sinus during bypass. Possible cardiogenic pulmonary edema. Clinical Indicators: possible acute lung injury, pulmonary edema, respiratory failure- became difficult to oxygenate, anemic, low cardiac index Labs: PAP mean high was 35 Echo results: left ventricular systolic function is severaly impaired with an EF between 20 - 25%. Right ventricle is severely enlarged. There is paradoxical/dysynergic septal motion consistent with right ventricular volume overload and/or elevated. Mild to moderate pulmonary hypertension, right ventricular end-diastolic pressure. Radiology results: CXR showed Interval increase in perihilar interstitial and airspace opacities, likely due to worsening pulmonary edema. Treatment: Ventilator, IV Lasix, IV Papaverine, Hydralazine In your professional opinion, can you please clarify if the above is clinically significant for: Acute Cor pulmonale Chronic Cor pulmonale Unable to determine Other, please specify If known, please specify if due to: Pulmonary Hypertension Other, please specify Unable to determine unable to determine MTDD
--- NOTE | 2019-01-30 14:22 | CDI ---
Documentation Clarification Form Date: 01/30/2019 1:58:01 PM From: Serina Coombs RN, CCDS Email: [email or web address] Admit Date: 01/25/2019 5:40:00 AM Patient Name: Saurabh Murphy Visit Number: [id number] Discharge Date: 01/28/2019 6:43:00 PM ATTENTION: The Clinical Documentation Specialists (CDI) and [facility] Coding Staff appreciate your assistance in clarifying documentation. Please respond to the clarification below the line at the bottom and electronically sign. The CDI & [facility] Coding staff will review the response and follow-up if needed. Please note: Queries are made part of the Legal Health Record. If you have any questions, please contact the author of this message via ITS. Dr. Deep Franco Patient history/risk factors: heart catheterization on 11/02/2018 revealed a 60% lesion in the left main artery, occlusion in the midportion of the left circumflex artery, mild disease in the LAD, there was a 99% critical lesion in the mid right coronary artery. S/P CABG x3. Perforated pulmonary artery and perforated coronary sinus during bypass. Possible cardiogenic pulmonary edema. Septic shock. MARVA Clinical Indicators: hypotension, severe LV dysfunction, mediastinal bleeding, low urine output Vitals: BP 69/45, RR 30, tachycardic Treatment: IV Norepinephrine, IV Epinephrine, IV Vasopressin, PRBC's, Platelets, FFP and Cryoprecipitate, Ventilator In your professional opinion, can you please clarify if the above is clinically significant for: Cardiogenic Shock Cause Hypovolemic Shock Cause Other, please specify_septic shock Unable to determine MTDD
--- NOTE | 2019-02-01 22:00 | DS ---
DISCHARGE SUMMARY DATE OF ADMISSION: 01/25/2019 DATE OF DISCHARGE: 01/28/2019 HOSPITAL COURSE: The patient is a 78-year-old male with a history of multiple medical problems, including hypertension, hypercholesterolemia, history of sleep apnea, dementia, abdominal aortic aneurysm, status post aortobifemoral bypass, history of right- sided lung cancer, status post resection followed by chemotherapy and radiation therapy, tobacco use and alcohol use. Cardiac catheterization revealed multivessel coronary artery disease, including left main coronary artery disease. He had an extensive workup and wished to proceed with surgical intervention. For more details regarding his hospital course, please refer to the medical chart. The patient was taken to the operating room on 01/25/2019, where he underwent coronary artery bypass grafting x3 vessels with VINCENT to the left anterior descending artery, radial artery to the posterior descending artery, and saphenous vein graft to the obtuse marginal artery. On the night of surgery he was coagulopathic and continued to bleed despite administration of blood products. He remained hemodynamically stable with a good cardiac index and good urine output. In the morning of postoperative day number 1, I decided to take him back to the operating room for mediastinal exploration and washout. There was no evidence of active bleeding or clot noted. The patient returned to the ICU for further management. On postoperative day number 2, he was extubated; however, he required re-intubation several hours later secondary to respiratory insufficiency. Later that evening, he became progressively hypoxic and hypotensive. On postoperative day number 3, he was found to have a low WBC count along with significant bandemia. He was started on broad spectrum antibiotics secondary to sepsis. Blood and sputum cultures eventually grew out Pseudomonas. He remained hypoxic despite maximal ventilator support. We contacted [facility] for considertion of ECMO. Over the course of the day, his hypotension worsened and his lactate was noted to be 17. Despite maximal care, he eventually developed asystole. Standard ACLS protocol was followed. The patient at 1520 hours. MMODL / IJN: [id number] / ÁLVARO
== END 2019-01-28 18:43 | disposition expired | DRG 235 ==
LOC: 2ORMAIN 05:40 → 2SICU 16:46
PROVIDERS: ADMIT Surgery; ATTEND Surgery
PROC: 03BC3ZZ Excision of Left Radial Artery, Percutaneous Approach (ICD-10-PCS; 2019-01-25)
PROC: 02Q Heart and Great Vessels, Repair (ICD-10-PCS; 2019-01-25)
PROC: 5A1221Z Performance of Cardiac Output, Continuous (ICD-10-PCS; 2019-01-25)
PROC: 30233N0 Transfusion of Autologous Red Blood Cells into Peripheral Vein, Percutaneous Approach (ICD-10-PCS; 2019-01-25)
PROC: B246ZZ4 Ultrasonography of Right and Left Heart, Transesophageal (ICD-10-PCS; 2019-01-25)
PROC: 5A1945Z Respiratory Ventilation, 24-96 Consecutive Hours (ICD-10-PCS; 2019-01-25)
PROC: 0BH17EZ Insertion of Endotracheal Airway into Trachea, Via Natural or Artificial Opening (ICD-10-PCS; 2019-01-25)
PROC: 02100Z9 Bypass Coronary Artery, One Artery from Left Internal Mammary, Open Approach (ICD-10-PCS; principal; 2019-01-25 08:00)
PROC: 021109W Bypass Coronary Artery, Two Arteries from Aorta with Autologous Venous Tissue, Open Approach (ICD-10-PCS; 2019-01-25 08:00)
PROC: 06BP4ZZ Excision of Right Saphenous Vein, Percutaneous Endoscopic Approach (ICD-10-PCS; 2019-01-25 08:00)
PROC: 0P800ZZ Division of Sternum, Open Approach (ICD-10-PCS; 2019-01-26)
PROC: 30233N1 Transfusion of Nonautologous Red Blood Cells into Peripheral Vein, Percutaneous Approach (ICD-10-PCS; 2019-01-26)
PROC: 30233K1 Transfusion of Nonautologous Frozen Plasma into Peripheral Vein, Percutaneous Approach (ICD-10-PCS; 2019-01-26)
PROC: 30233R1 Transfusion of Nonautologous Platelets into Peripheral Vein, Percutaneous Approach (ICD-10-PCS; 2019-01-26)
PROC: 5A1945Z Respiratory Ventilation, 24-96 Consecutive Hours (ICD-10-PCS; 2019-01-27)
PROC: 0BH17EZ Insertion of Endotracheal Airway into Trachea, Via Natural or Artificial Opening (ICD-10-PCS; 2019-01-27)
DX: I25.10 Atherosclerotic heart disease of native coronary artery without angina pectoris (principal); J95.821 Acute postprocedural respiratory failure; N17.0 Acute kidney failure with tubular necrosis; R65.21 Severe sepsis with septic shock; R40.2310 Coma scale, best motor response, none, unspecified time; R40.2110 Coma scale, eyes open, never, unspecified time; R40.2210 Coma scale, best verbal response, none, unspecified time; D61.818 Other pancytopenia; D62 Acute posthemorrhagic anemia; E87.4 Mixed disorder of acid-base balance; I31.3 Pericardial effusion (noninflammatory); Z99.11 Dependence on respirator [ventilator] status; I97.51 Accidental puncture and laceration of a circulatory system organ or structure during a circulatory system procedure; I50.1 Left ventricular failure, unspecified; E78.00 Pure hypercholesterolemia, unspecified; E78.5 Hyperlipidemia, unspecified; F03.90 Unspecified dementia, unspecified severity, without behavioral disturbance, psychotic disturbance, mood disturbance, and anxiety; G47.33 Obstructive sleep apnea (adult) (pediatric); I08.3 Combined rheumatic disorders of mitral, aortic and tricuspid valves; I27.20 Pulmonary hypertension, unspecified; I45.10 Unspecified right bundle-branch block; I48.0 Paroxysmal atrial fibrillation; I95.81 Postprocedural hypotension; Z79.82 Long term (current) use of aspirin; Z79.899 Other long term (current) drug therapy; Z85.118 Personal history of other malignant neoplasm of bronchus and lung; Z86.79 Personal history of other diseases of the circulatory system; Z87.891 Personal history of nicotine dependence; Z90.2 Acquired absence of lung [part of]; Z90.49 Acquired absence of other specified parts of digestive tract; Z92.21 Personal history of antineoplastic chemotherapy; Z92.3 Personal history of irradiation; E86.1 Hypovolemia; I11.0 Hypertensive heart disease with heart failure
CPT/HCPCS: 71045; 80048; 80053; 82330; 82533; 82805; 83605; 83735; 84100; 85025; 85027; 85384; 85520; 85610; 85730; 86850; 86880; 86891; 86900; 86901; 86920; 87040; 87070; 87077; 87186; 87205; 93306; 94002; 94003; 94640; 94660